=== PATIENT | female | born 1945 | race Caucasian/White ===

== ENCOUNTER 2017-11-13 02:03 | Emergency (ER) | payer MEDICARE, OTHER ==
[~2017-11-13] VITALS: Ht 165.1 cm; Wt 68.0 kg
[~2017-11-13 02:03] MED LIST: ALBU90I INH; ALLO100 PO; AMIO200 PO; AMLO10 PO; ASCO500 PO; ASPI81CH PO; ASPI81EC PO; ATEN100; ATEN50 PO; Aspir 8181 MG PO; BECL80OI INH; CALCAVITD; CALCAVITD PO; CALMAGZIN PO; CEPH500 PO; CHOL10002; CHOL10002 PO; CYAN1000I IM; Calcium 600 +1 EAC1 PO; Cleocin HCl300 MG PO; DIGO.125 PO; ERGO400 PO; FENO160 PO; FLUO20; FURO40 PO; HYDACE10B PO; HYDACE5 PO; HYDCHL25 PO; LEVFLO500 PO; LISI20 PO; LISI5 PO; LOSA25 PO; Lanoxin125 MCG PO; Lanoxin250 MCG PO; Lopressor 25 mg25 MG PO; MECL12.5 PO; MECL25 PO; MELO7.5 PO; META800 PO; METO100 PO; METO25 PO; METO25ER PO; MULVITMIND PO; MULVITMINF; MULVITMINF PO; Multi-Day Vita1 EACH PO; NAPR500 PO; NEBI5 PO; Norco 5-325 Ta1 EACH PO; OLME20 PO; OMEP20ER PO; PANT40 PO; POTCHL10ER PO; POTCHL20ER PO; ROSU10TA PO; SPIR25 PO; TORSE20 PO; Tylenol325 MG PO; Voltaren100 GM TOP; WARF1 PO; WARF3 PO; WARF4 PO; WARF5 PO; WARF6 PO; Zofran Odt8 MG SL
[2017-11-13 02:32] LABS: BASOPHILS ABSOLUTE AUTO 0.02 K/mm3 (0.00-0.23); BASOPHILS PERCENT AUTO 0 % (0-2); EOSINOPHILS ABSOLUTE AUTO 0.08 K/mm3 (0.00-0.68); EOSINOPHILS PERCENT AUTO 1 % (0-6); Hematocrit 41.8 % (33.0-51.0); Hemoglobin 13.6 g/dL (11.5-16.0); IMMATURE GRAN ABSOLUTE AUTO 0.24 K/mm3 (0.00-0.10); IMMATURE GRAN PERCENT AUTO 2 % (0-1); LYMPHOCYTES PERCENT AUTO 7 % (21-46); MONOCYTES ABSOLUTE AUTO 1.75 K/mm3 (0.16-1.47); MONOCYTES PERCENT AUTO 14 % (4-13); Mean Corpuscular HGB 33.9 pg (26.0-34.0); Mean Corpuscular HGB Conc 32.5 g/dL (31.5-36.5); Mean Corpuscular Volume 104 fL (80-100); Mean Platelet Volume 9.7 fL (9.1-12.4); NEUTROPHILS ABSOLUTE AUTO 9.26 K/mm3 (1.96-9.15); NEUTROPHILS PERCENT AUTO 76 % (41-73); Platelet Count 254 K/mm3 (150-400); RDW Coefficient Variation 13.8 % (11.7-14.2); RDW Standard Deviation 52.1 fL (35.1-46.3); Red Blood Cell Count 4.01 M/mm3 (3.80-5.20); White Blood Cell Count 12.15 K/mm3 (4.00-11.30)
[2017-11-13 02:50] LABS: Alanine Aminotransfer (ALT/SGP 37 U/L (12-78); Albumin, Blood 3.3 g/dL (3.4-5.0); Albumin/Globulin Ratio 0.9 (0.8-1.8); Alk Phos 62 U/L (50-136); Anion Gap 10 mmol/L (6-16); Aspartate Aminotrans (AST/SGOT 33 U/L (12-37); Bilirubin, Total 0.8 mg/dL (0.1-1.0); Blood Urea Nitrogen 19 mg/dL (8-24); CO2, Blood 23 mmol/L (21-32); Calcium, Blood 7.8 mg/dL (8.5-10.1); Chloride, Blood 108 mmol/L (98-108); Creatinine, Blood 0.71 mg/dL (0.40-1.00); Globulin, Blood 3.5 g/dL (2.2-4.0); Glomerular Filtration Rate >60 (60-); Glucose, Blood 85 mg/dL (70-99); Potassium, Blood 3.5 mmol/L (3.5-5.5); Sodium, Blood 141 mmol/L (136-145); Total Protein, Blood 6.8 g/dL (6.4-8.2)
[2017-11-13 03:08] LABS: Source, Urine Clean Catch
[2017-11-13 03:11] LABS: Bilirubin, Urine Neg (Neg); Blood, Urine 2+ (Neg); Glucose Qualitative, Urine Neg (Neg); Ketones, Urine Neg (Neg); Leukocyte Esterase, Urine Neg (Neg); Nitrite, Urine Neg (Neg); Protein, Urine 2+ (Neg); Urobilinogen, Urine NORM (Normal)
[2017-11-13 03:15] LABS: International Normalized Ratio 1.22; Prothrombin Time Results 12.8 Sec (9.7-11.5)
[2017-11-13 03:17] LABS: Appearance, Urine Clear (Clear); Color, Urine Pale Yellow (P-Yellow)
[2017-11-13 03:19] LABS: Bacteria Rare /hpf; Red Blood Cells, Urine 0-2 /hpf (0-2); Squamous Epithelial Cells Not Seen /hpf (Few); White Blood Cells, Urine 0-2 /hpf (0-5)
[2017-11-13] MEDS ORDERED: DIGOX125 MCG PO (03:46)
[2017-11-13] MEDS ORDERED: CARV6.25 PO (03:47)
[2018-10-06] MEDS ORDERED: COLCRYS0.6 MG (18:31)
[2018-10-06] MEDS ORDERED: DOCU100 (18:31)
[2018-10-06] MEDS ORDERED: NEBI5 (18:32)
[2018-10-06] MEDS ORDERED: ROPI.25 (18:32)
[2018-10-06] MEDS ORDERED: CVS DISPOSABLE399 ML (18:35)
[2018-10-09] MEDS ORDERED: Ceftriaxon1 GM/50 ML IV (18:48)
[2018-10-16] MEDS ORDERED: NEBI5 PO (11:17)
[2018-10-16] MEDS ORDERED: POTA10T PO (11:18)
[2018-10-16] MEDS ORDERED: COLCRYS0.6 MG PO (11:22)
[2018-10-16] MEDS ORDERED: ADULT ASPIRIN R81 MG PO (11:23)
[2018-10-16] MEDS ORDERED: SANTYL30 GM TOP (11:25)
[2018-10-16] MEDS ORDERED: CLOP75 PO (11:27)
== END 2017-11-13 09:08 | disposition home or self-care (01) ==
LOC: ER 02:03
PROVIDERS: Emergency Medicine
DX: R29.898 Other symptoms and signs involving the musculoskeletal system (principal); R20.2 Paresthesia of skin; R79.1 Abnormal coagulation profile; I11.0 Hypertensive heart disease with heart failure; I48.91 Unspecified atrial fibrillation; I50.9 Heart failure, unspecified; Z95.0 Presence of cardiac pacemaker; Z88.8 Allergy status to other drugs, medicaments and biological substances; Z91.040 Latex allergy status; Z79.899 Other long term (current) drug therapy; Z79.01 Long term (current) use of anticoagulants; Z96.643 Presence of artificial hip joint, bilateral
CPT/HCPCS: 51798; 71046; 80053; 81001; 84484; 85025; 85610; 93005; 93010; 96360; 96361; 99285; J7030

== ENCOUNTER 2017-12-06 11:09 | Emergency (ER) | payer MEDICARE, OTHER ==
[~2017-12-06] VITALS: Ht 177.8 cm; Wt 68.0 kg
[~2017-12-06 11:09] MED LIST changes: +CARV6.25 PO; +DIGOX125 MCG PO
[2017-12-06 13:06] LABS: International Normalized Ratio 1.4; Prothrombin Time Results 14.7 Sec (9.7-11.5)
[2018-10-06] MEDS ORDERED: DOCU100 (18:31)
[2018-10-06] MEDS ORDERED: COLCRYS0.6 MG (18:31)
[2018-10-06] MEDS ORDERED: NEBI5 (18:32)
[2018-10-06] MEDS ORDERED: ROPI.25 (18:32)
[2018-10-06] MEDS ORDERED: CVS DISPOSABLE399 ML (18:35)
[2018-10-09] MEDS ORDERED: Ceftriaxon1 GM/50 ML IV (18:48)
[2018-10-16] MEDS ORDERED: NEBI5 PO (11:17)
[2018-10-16] MEDS ORDERED: POTA10T PO (11:18)
[2018-10-16] MEDS ORDERED: COLCRYS0.6 MG PO (11:22)
[2018-10-16] MEDS ORDERED: ADULT ASPIRIN R81 MG PO (11:23)
[2018-10-16] MEDS ORDERED: SANTYL30 GM TOP (11:25)
[2018-10-16] MEDS ORDERED: CLOP75 PO (11:27)
== END 2017-12-06 13:46 | disposition home or self-care (01) ==
LOC: ER 11:09
PROVIDERS: Emergency Medicine
DX: S01.01XA Laceration without foreign body of scalp, initial encounter (principal); F10.129 Alcohol abuse with intoxication, unspecified; I11.0 Hypertensive heart disease with heart failure; I50.9 Heart failure, unspecified; I48.91 Unspecified atrial fibrillation; Z88.8 Allergy status to other drugs, medicaments and biological substances; Z91.040 Latex allergy status; Z79.899 Other long term (current) drug therapy; Z79.01 Long term (current) use of anticoagulants; Z96.643 Presence of artificial hip joint, bilateral; Z95.0 Presence of cardiac pacemaker; Y90.7 Blood alcohol level of 200-239 mg/100 ml; W18.30XA Fall on same level, unspecified, initial encounter
CPT/HCPCS: 36415; 70450; 85610; 93005; 93010; 99284; G0480

== ENCOUNTER 2018-02-28 10:29 | Observation (INO) | payer MEDICARE, OTHER ==
[~2018-02-28] VITALS: Ht 177.8 cm; Wt 71.2 kg
[2018-02-28] MEDS ORDERED: LOSARTAN POTAS100 MG PO (10:42)
[2018-02-28 11:01] LABS: BASOPHILS ABSOLUTE AUTO 0.01 K/mm3 (0.00-0.23); BASOPHILS PERCENT AUTO 0 % (0-2); EOSINOPHILS ABSOLUTE AUTO 0.02 K/mm3 (0.00-0.68); EOSINOPHILS PERCENT AUTO 0 % (0-6); Hematocrit 40.5 % (33.0-51.0); IMMATURE GRAN PERCENT AUTO 2 % (0-1); LYMPHOCYTES ABSOLUTE AUTO 0.68 K/mm3 (0.84-5.20); LYMPHOCYTES PERCENT AUTO 10 % (21-46); MONOCYTES ABSOLUTE AUTO 0.67 K/mm3 (0.16-1.47); MONOCYTES PERCENT AUTO 10 % (4-13); Mean Corpuscular HGB 32.7 pg (26.0-34.0); Mean Corpuscular HGB Conc 32.1 g/dL (31.5-36.5); Mean Corpuscular Volume 102 fL (80-100); Mean Platelet Volume 9.9 fL (9.1-12.4); NEUTROPHILS ABSOLUTE AUTO 5.38 K/mm3 (1.96-9.15); NEUTROPHILS PERCENT AUTO 78 % (41-73); Platelet Count 206 K/mm3 (150-400); RDW Coefficient Variation 13.1 % (11.7-14.2); RDW Standard Deviation 48.8 fL (35.1-46.3); Red Blood Cell Count 3.97 M/mm3 (3.80-5.20); White Blood Cell Count 6.86 K/mm3 (4.00-11.30)
[2018-02-28 11:17] LABS: International Normalized Ratio 1.26; Prothrombin Time Results 13.2 Sec (9.7-11.5)
[2018-02-28 11:20] LABS: Alanine Aminotransfer (ALT/SGP 64 U/L (12-78); Albumin, Blood 3.4 g/dL (3.4-5.0); Alk Phos 72 U/L (50-136); Anion Gap 9 mmol/L (6-16); Aspartate Aminotrans (AST/SGOT 38 U/L (12-37); Bilirubin, Total 0.4 mg/dL (0.1-1.0); Blood Urea Nitrogen 45 mg/dL (8-24); Bun/Creatinine Ratio 47.1 (12.0-20.0); CO2, Blood 24 mmol/L (21-32); Calcium, Blood 8.5 mg/dL (8.5-10.1); Chloride, Blood 108 mmol/L (98-108); Creatinine, Blood 0.96 mg/dL (0.40-1.00); Globulin, Blood 3.4 g/dL (2.2-4.0); Glomerular Filtration Rate >60 (60-); Glucose, Blood 148 mg/dL (70-99); Potassium, Blood 3.9 mmol/L (3.5-5.5); Sodium, Blood 141 mmol/L (136-145); Total Protein, Blood 6.8 g/dL (6.4-8.2)
[2018-03-01 05:59] LABS: International Normalized Ratio 1.41; Prothrombin Time Results 14.8 Sec (9.7-11.5)
[2018-03-02 06:29] LABS: International Normalized Ratio 1.47; Prothrombin Time Results 15.5 Sec (9.7-11.5)
[2018-03-03 05:01] LABS: Hematocrit 40.9 % (33.0-51.0); Mean Corpuscular HGB 32.8 pg (26.0-34.0); Mean Corpuscular HGB Conc 31.8 g/dL (31.5-36.5); Mean Corpuscular Volume 103 fL (80-100); Mean Platelet Volume 9.7 fL (9.1-12.4); Platelet Count 217 K/mm3 (150-400); RDW Coefficient Variation 13.2 % (11.7-14.2); RDW Standard Deviation 49.7 fL (35.1-46.3); Red Blood Cell Count 3.96 M/mm3 (3.80-5.20); White Blood Cell Count 6.95 K/mm3 (4.00-11.30)
[2018-03-03 05:13] LABS: International Normalized Ratio 1.64; Prothrombin Time Results 17.3 Sec (9.7-11.5)
[2018-03-03 05:39] LABS: Anion Gap 7 mmol/L (6-16); Blood Urea Nitrogen 33 mg/dL (8-24); Bun/Creatinine Ratio 39.8 (12.0-20.0); CO2, Blood 25 mmol/L (21-32); Calcium, Blood 8.6 mg/dL (8.5-10.1); Chloride, Blood 105 mmol/L (98-108); Creatinine, Blood 0.83 mg/dL (0.40-1.00); Glomerular Filtration Rate >60 (60-); Glucose, Blood 86 mg/dL (70-99); Potassium, Blood 4.4 mmol/L (3.5-5.5); Sodium, Blood 137 mmol/L (136-145)
[2018-03-03] MEDS ORDERED: CHLO25B PO (16:58)
[2018-03-03] MEDS ORDERED: NEBI5 PO (16:59)
[2018-03-03] MEDS ORDERED: CLOP75 PO (16:59)
== END 2018-03-03 17:47 | disposition home or self-care (01) ==
LOC: ER 10:29 → MEDS 10:30 → ENPENDDIS 03-03 17:10 → MEDS 03-03 17:47
PROVIDERS: Emergency Medicine; Internal Medicine
DX: G45.9 Transient cerebral ischemic attack, unspecified (principal); I48.91 Unspecified atrial fibrillation; I67.9 Cerebrovascular disease, unspecified; I13.0 Hypertensive heart and chronic kidney disease with heart failure and stage 1 through stage 4 chronic kidney disease, or unspecified chronic kidney disease; I50.40 Unspecified combined systolic (congestive) and diastolic (congestive) heart failure; N18.3 Chronic kidney disease, stage 3 (moderate); I49.9 Cardiac arrhythmia, unspecified; H54.7 Unspecified visual loss; Z79.01 Long term (current) use of anticoagulants; Z95.810 Presence of automatic (implantable) cardiac defibrillator; Z79.02 Long term (current) use of antithrombotics/antiplatelets; Z79.899 Other long term (current) drug therapy; Z88.8 Allergy status to other drugs, medicaments and biological substances; Z91.040 Latex allergy status
CPT/HCPCS: 36415; 70450; 80048; 80053; 82947; 85025; 85027; 85610; 93005; 93010; 93308; 93321; 93880; 94762; 96372; 96374; 96375; 96376; 97110; 97116; 97162; 99285; G0378; G8978; G8979; J0360; J1650; J2405

== ENCOUNTER 2018-03-08 12:07 | Emergency (ER) | payer MEDICARE, OTHER ==
[~2018-03-08] VITALS: Ht 162.6 cm; Wt 63.5 kg
[~2018-03-08 12:07] MED LIST changes: +CHLO25B PO; +CLOP75 PO; +LOSARTAN POTAS100 MG PO
[2018-03-08] MEDS ORDERED: WARF5 PO (12:39)
[2018-03-08 12:47] LABS: BASOPHILS ABSOLUTE AUTO 0.03 K/mm3 (0.00-0.23); BASOPHILS PERCENT AUTO 0 % (0-2); EOSINOPHILS ABSOLUTE AUTO 0.14 K/mm3 (0.00-0.68); EOSINOPHILS PERCENT AUTO 2 % (0-6); Hematocrit 35.4 % (33.0-51.0); Hemoglobin 11.8 g/dL (11.5-16.0); IMMATURE GRAN ABSOLUTE AUTO 0.15 K/mm3 (0.00-0.10); IMMATURE GRAN PERCENT AUTO 2 % (0-1); LYMPHOCYTES ABSOLUTE AUTO 1.11 K/mm3 (0.84-5.20); LYMPHOCYTES PERCENT AUTO 13 % (21-46); MONOCYTES ABSOLUTE AUTO 1.22 K/mm3 (0.16-1.47); MONOCYTES PERCENT AUTO 14 % (4-13); Mean Corpuscular HGB 33.6 pg (26.0-34.0); Mean Corpuscular HGB Conc 33.3 g/dL (31.5-36.5); Mean Corpuscular Volume 101 fL (80-100); Mean Platelet Volume 9.4 fL (9.1-12.4); NEUTROPHILS ABSOLUTE AUTO 6.15 K/mm3 (1.96-9.15); NEUTROPHILS PERCENT AUTO 70 % (41-73); Platelet Count 251 K/mm3 (150-400); RDW Coefficient Variation 13.6 % (11.7-14.2); RDW Standard Deviation 49.6 fL (35.1-46.3); Red Blood Cell Count 3.51 M/mm3 (3.80-5.20)
[2018-03-08 13:02] LABS: Alanine Aminotransfer (ALT/SGP 44 U/L (12-78); Albumin, Blood 3.4 g/dL (3.4-5.0); Alk Phos 49 U/L (50-136); Anion Gap 7 mmol/L (6-16); Aspartate Aminotrans (AST/SGOT 34 U/L (12-37); Bilirubin, Total 1.1 mg/dL (0.1-1.0); Blood Urea Nitrogen 29 mg/dL (8-24); Bun/Creatinine Ratio 34.6 (12.0-20.0); CO2, Blood 25 mmol/L (21-32); Calcium, Blood 8.6 mg/dL (8.5-10.1); Chloride, Blood 106 mmol/L (98-108); Creatinine, Blood 0.84 mg/dL (0.40-1.00); Globulin, Blood 3.3 g/dL (2.2-4.0); Glomerular Filtration Rate >60 (60-); Glucose, Blood 98 mg/dL (70-99); International Normalized Ratio 1.44; Potassium, Blood 3.6 mmol/L (3.5-5.5); Prothrombin Time Results 15.2 Sec (9.7-11.5); Sodium, Blood 138 mmol/L (136-145); Total Protein, Blood 6.7 g/dL (6.4-8.2); Troponin I <0.015 ng/mL (0.000-0.040)
[2018-03-08] MEDS ORDERED: ROPI.25 PO (16:15)
== END 2018-03-08 17:28 | disposition home or self-care (01) ==
LOC: ER 12:07
PROVIDERS: Emergency Medicine
DX: S80.11XA Contusion of right lower leg, initial encounter (principal); S70.11XA Contusion of right thigh, initial encounter; M71.21 Synovial cyst of popliteal space [Baker], right knee; G25.81 Restless legs syndrome; R79.1 Abnormal coagulation profile; I11.0 Hypertensive heart disease with heart failure; I50.9 Heart failure, unspecified; I48.91 Unspecified atrial fibrillation; Z79.01 Long term (current) use of anticoagulants; Z91.040 Latex allergy status; Z88.8 Allergy status to other drugs, medicaments and biological substances; Z79.899 Other long term (current) drug therapy; X58.XXXA Exposure to other specified factors, initial encounter
CPT/HCPCS: 71046; 80053; 84484; 85025; 85610; 93005; 93010; 93922; 93971; 99284

== ENCOUNTER → 2018-03-20 | Outpatient (CLI) | payer MEDICARE, OTHER ==
[~2018-03-20] MED LIST changes: +ROPI.25 PO
[2018-03-20 10:43] LABS: International Normalized Ratio 1.4; Prothrombin Time Results 14.7 Sec (9.7-11.5)
== END | disposition home or self-care (01) ==
LOC: LAB HH 10:22
PROVIDERS: Registered Nurse
DX: I48.91 Unspecified atrial fibrillation (principal)
CPT/HCPCS: 85610

== ENCOUNTER → 2018-03-30 | Outpatient (CLI) | payer MEDICARE, OTHER ==
[2018-03-30 16:33] LABS: International Normalized Ratio 2.26; Prothrombin Time Results 24.1 Sec (9.7-11.5)
== END ==
LOC: LAB SHORT 14:23
PROVIDERS: Internal Medicine Cardiovascular Disease
DX: Z79.01 Long term (current) use of anticoagulants (principal); Z51.81 Encounter for therapeutic drug level monitoring
CPT/HCPCS: 85610

== ENCOUNTER 2018-07-18 00:08 | Day surgery (SDC) | payer MEDICARE, OTHER ==
[2018-07-18] MEDS ORDERED: WARF3 PO (11:18)
== END 2018-07-18 22:37 | disposition home or self-care (01) ==
LOC: RAD 00:08
DX: M54.16 Radiculopathy, lumbar region (principal); M51.36 Other intervertebral disc degeneration, lumbar region; M47.812 Spondylosis without myelopathy or radiculopathy, cervical region; M41.9 Scoliosis, unspecified; M48.061 Spinal stenosis, lumbar region without neurogenic claudication; M43.17 Spondylolisthesis, lumbosacral region
CPT/HCPCS: 62305; 72126; 72132; Q9967

== ENCOUNTER → 2018-07-18 14:27 | Emergency (ER) | payer MEDICARE, OTHER ==
[~2018-07-18] VITALS: Ht 172.7 cm; Wt 65.3 kg
== END | disposition home or self-care (01) ==
LOC: ER 10:59
DX: S09.90XA Unspecified injury of head, initial encounter (principal); W01.198A Fall on same level from slipping, tripping and stumbling with subsequent striking against other object, initial encounter; Z91.040 Latex allergy status; Z79.899 Other long term (current) drug therapy; I11.0 Hypertensive heart disease with heart failure; I50.9 Heart failure, unspecified; I48.91 Unspecified atrial fibrillation
CPT/HCPCS: 70450; 99284-25

== ENCOUNTER 2018-07-18 18:21 | Inpatient (IN) | payer MEDICARE, OTHER ==
[~2018-07-18] VITALS: Ht 177.8 cm; Wt 75.5 kg
[2018-07-18 19:47] LABS: BASOPHILS ABSOLUTE AUTO 0.02 K/mm3 (0.00-0.23); BASOPHILS PERCENT AUTO 0 % (0-2); EOSINOPHILS ABSOLUTE AUTO 0.01 K/mm3 (0.00-0.68); EOSINOPHILS PERCENT AUTO 0 % (0-6); Hematocrit 37.1 % (33.0-51.0); Hemoglobin 12.7 g/dL (11.5-16.0); IMMATURE GRAN ABSOLUTE AUTO 0.08 K/mm3 (0.00-0.10); IMMATURE GRAN PERCENT AUTO 1 % (0-1); LYMPHOCYTES ABSOLUTE AUTO 0.95 K/mm3 (0.84-5.20); LYMPHOCYTES PERCENT AUTO 9 % (21-46); MONOCYTES ABSOLUTE AUTO 1.87 K/mm3 (0.16-1.47); MONOCYTES PERCENT AUTO 17 % (4-13); Mean Corpuscular HGB 33.6 pg (26.0-34.0); Mean Corpuscular HGB Conc 34.2 g/dL (31.5-36.5); Mean Corpuscular Volume 98 fL (80-100); NEUTROPHILS PERCENT AUTO 73 % (41-73); Platelet Count 269 K/mm3 (150-400); RDW Coefficient Variation 13.3 % (11.7-14.2); RDW Standard Deviation 48.4 fL (35.1-46.3); Red Blood Cell Count 3.78 M/mm3 (3.80-5.20); White Blood Cell Count 10.83 K/mm3 (4.00-11.30)
[2018-07-18 20:05] LABS: Albumin, Blood 2.6 g/dL (3.4-5.0); Albumin/Globulin Ratio 0.6 (0.8-1.8); Bilirubin, Total 0.7 mg/dL (0.1-1.0); Bun/Creatinine Ratio 29.4 (12.0-20.0); Calcium, Blood 8.5 mg/dL (8.5-10.1); Creatinine, Blood 1.02 mg/dL (0.40-1.00); Globulin, Blood 4.3 g/dL (2.2-4.0); Potassium, Blood 2.7 mmol/L (3.5-5.5); Total Protein, Blood 6.9 g/dL (6.4-8.2)
[2018-07-19 05:49] LABS: Calcium, Blood 7.9 mg/dL (8.5-10.1); Potassium, Blood 3.2 mmol/L (3.5-5.5)
[2018-07-20 21:10] LABS: International Normalized Ratio 0.99; Prothrombin Time Results 10.2 Sec (9.7-11.5)
[2018-07-21 05:17] LABS: Anion Gap 10 mmol/L (6-16); Blood Urea Nitrogen 28 mg/dL (8-24); Bun/Creatinine Ratio 31.2 (12.0-20.0); CO2, Blood 28 mmol/L (21-32); Chloride, Blood 91 mmol/L (98-108); Glomerular Filtration Rate >60 (60-); Glucose, Blood 94 mg/dL (70-99); International Normalized Ratio 1.02; Potassium, Blood 3.4 mmol/L (3.5-5.5); Prothrombin Time Results 10.5 Sec (9.7-11.5); Sodium, Blood 129 mmol/L (136-145)
[2018-07-22 05:14] LABS: BASOPHILS ABSOLUTE AUTO 0.03 K/mm3 (0.00-0.23); BASOPHILS PERCENT AUTO 0 % (0-2); EOSINOPHILS ABSOLUTE AUTO 0.06 K/mm3 (0.00-0.68); EOSINOPHILS PERCENT AUTO 1 % (0-6); Hematocrit 32.1 % (33.0-51.0); Hemoglobin 11.2 g/dL (11.5-16.0); IMMATURE GRAN ABSOLUTE AUTO 0.13 K/mm3 (0.00-0.10); IMMATURE GRAN PERCENT AUTO 2 % (0-1); LYMPHOCYTES ABSOLUTE AUTO 0.83 K/mm3 (0.84-5.20); LYMPHOCYTES PERCENT AUTO 10 % (21-46); MONOCYTES ABSOLUTE AUTO 1.32 K/mm3 (0.16-1.47); MONOCYTES PERCENT AUTO 17 % (4-13); Mean Corpuscular HGB 33.2 pg (26.0-34.0); Mean Corpuscular HGB Conc 34.9 g/dL (31.5-36.5); Mean Platelet Volume 10.1 fL (9.1-12.4); NEUTROPHILS ABSOLUTE AUTO 5.64 K/mm3 (1.96-9.15); NEUTROPHILS PERCENT AUTO 70 % (41-73); Platelet Count 292 K/mm3 (150-400); RDW Standard Deviation 45.9 fL (35.1-46.3); Red Blood Cell Count 3.37 M/mm3 (3.80-5.20); White Blood Cell Count 8.01 K/mm3 (4.00-11.30)
[2018-07-22 05:18] LABS: Mean Corpuscular Volume 95 fL (80-100)
[2018-07-22 05:28] LABS: International Normalized Ratio 1.05; Prothrombin Time Results 10.8 Sec (9.7-11.5)
[2018-07-22 05:33] LABS: Anion Gap 10 mmol/L (6-16); Blood Urea Nitrogen 16 mg/dL (8-24); Bun/Creatinine Ratio 22.6 (12.0-20.0); CO2, Blood 28 mmol/L (21-32); Chloride, Blood 90 mmol/L (98-108); Creatinine, Blood 0.71 mg/dL (0.40-1.00); Glomerular Filtration Rate >60 (60-); Glucose, Blood 90 mg/dL (70-99); Potassium, Blood 3.4 mmol/L (3.5-5.5); Sodium, Blood 128 mmol/L (136-145)
[2018-07-22 10:48] LABS: Anion Gap 9 mmol/L (6-16); Blood Urea Nitrogen 16 mg/dL (8-24); Bun/Creatinine Ratio 21.4 (12.0-20.0); CO2, Blood 27 mmol/L (21-32); Calcium, Blood 8.5 mg/dL (8.5-10.1); Chloride, Blood 88 mmol/L (98-108); Creatinine, Blood 0.75 mg/dL (0.40-1.00); Glomerular Filtration Rate >60 (60-); Glucose, Blood 121 mg/dL (70-99); Potassium, Blood 3.7 mmol/L (3.5-5.5); Sodium, Blood 124 mmol/L (136-145)
[2018-07-22 17:29] LABS: Anion Gap 12 mmol/L (6-16); Blood Urea Nitrogen 15 mg/dL (8-24); Bun/Creatinine Ratio 21.5 (12.0-20.0); CO2, Blood 24 mmol/L (21-32); Chloride, Blood 90 mmol/L (98-108); Glomerular Filtration Rate >60 (60-); Glucose, Blood 153 mg/dL (70-99); Potassium, Blood 3.9 mmol/L (3.5-5.5); Sodium, Blood 126 mmol/L (136-145)
[2018-07-23 06:01] LABS: International Normalized Ratio 1.49
[2018-07-23 06:40] LABS: Anion Gap 12 mmol/L (6-16); Blood Urea Nitrogen 19 mg/dL (8-24); Bun/Creatinine Ratio 23.6 (12.0-20.0); CO2, Blood 23 mmol/L (21-32); Calcium, Blood 7.4 mg/dL (8.5-10.1); Chloride, Blood 93 mmol/L (98-108); Creatinine, Blood 0.81 mg/dL (0.40-1.00); Glomerular Filtration Rate >60 (60-); Glucose, Blood 127 mg/dL (70-99); Potassium, Blood 3.8 mmol/L (3.5-5.5); Sodium, Blood 128 mmol/L (136-145)
[2018-07-24 04:44] LABS: Mean Corpuscular HGB 33.6 pg (26.0-34.0); Mean Corpuscular HGB Conc 34.3 g/dL (31.5-36.5); Mean Platelet Volume 10.3 fL (9.1-12.4); Platelet Count 222 K/mm3 (150-400); RDW Coefficient Variation 13.7 % (11.7-14.2); RDW Standard Deviation 49.1 fL (35.1-46.3); White Blood Cell Count 14.65 K/mm3 (4.00-11.30)
[2018-07-24 04:45] LABS: Mean Corpuscular Volume 98 fL (80-100)
[2018-07-24 04:46] LABS: Hemoglobin 4.7 g/dL (11.5-16.0)
[2018-07-24 04:47] LABS: Hematocrit 13.7 % (33.0-51.0)
[2018-07-24 04:57] LABS: International Normalized Ratio 2.3; Prothrombin Time Results 22.6 Sec (9.7-11.5)
[2018-07-24 05:04] LABS: Anion Gap 9 mmol/L (6-16); Blood Urea Nitrogen 28 mg/dL (8-24); Bun/Creatinine Ratio 29.9 (12.0-20.0); CO2, Blood 23 mmol/L (21-32); Calcium, Blood 6.9 mg/dL (8.5-10.1); Chloride, Blood 99 mmol/L (98-108); Creatinine, Blood 0.94 mg/dL (0.40-1.00); Glomerular Filtration Rate >60 (60-); Glucose, Blood 90 mg/dL (70-99); Potassium, Blood 4.2 mmol/L (3.5-5.5); Sodium, Blood 131 mmol/L (136-145)
[2018-07-24 05:15] LABS: BAND PERCENT MAN 1 % (0-8); BASOPHILS PERCENT MAN 0 % (0-2); EOSINOPHILS PERCENT MAN 0 % (0-6); LYMPHOCYTES ABSOLUTE MAN 1.61 K/mm3 (0.84-5.20); LYMPHOCYTES PERCENT MAN 11 % (21-46); METAMYELOCYTE ABSOLUTE MAN 0.14 K/mm3 (0.00-0.00); METAMYELOCYTE PERCENT MAN 1 % (0-0); MONOCYTES ABSOLUTE MAN 0.87 K/mm3 (0.16-1.47); MONOCYTES PERCENT MAN 6 % (4-13); NEUTROPHILS ABSOLUTE MAN 12.01 K/mm3 (1.96-9.15); SEG NEUTROPHILS PERCENT MAN 81 % (41-73); TOTAL CELLS COUNTED 100
[2018-07-24 05:41] LABS: Percent Saturation 23.7 % (15.0-50.0)
[2018-07-24 08:10] LABS: Albumin/Globulin Ratio 0.8 (0.8-1.8); Bilirubin, Total 0.3 mg/dL (0.1-1.0); Bun/Creatinine Ratio 27.2 (12.0-20.0); Calcium, Blood 6.9 mg/dL (8.5-10.1); Creatinine, Blood 0.99 mg/dL (0.40-1.00); Globulin, Blood 2.6 g/dL (2.2-4.0); Potassium, Blood 4.3 mmol/L (3.5-5.5); Total Protein, Blood 4.6 g/dL (6.4-8.2)
[2018-07-24 11:07] LABS: Source, Urine Catheter
[2018-07-24 11:10] LABS: Bilirubin, Urine Neg (Neg); Blood, Urine Neg (Neg); Glucose Qualitative, Urine Neg (Neg); Ketones, Urine 1+ (Neg); Leukocyte Esterase, Urine Neg (Neg); Nitrite, Urine Neg (Neg); Protein, Urine Neg (Neg); Urobilinogen, Urine NORM (Normal)
[2018-07-24 11:53] LABS: Color, Urine Yellow (P-Yellow)
[2018-07-24 11:54] LABS: Appearance, Urine Clear (Clear)
[2018-07-24 19:02] LABS: Hematocrit 27.7 % (33.0-51.0); Hemoglobin 9.3 g/dL (11.5-16.0)
[2018-07-25 05:47] LABS: Hematocrit 26.4 % (33.0-51.0); Hemoglobin 8.7 g/dL (11.5-16.0); Mean Corpuscular HGB 30.6 pg (26.0-34.0); Mean Platelet Volume 10.5 fL (9.1-12.4); NRBC Auto 0.6 /100 WBC (0.0-0.2); Platelet Count 184 K/mm3 (150-400); RDW Coefficient Variation 17.3 % (11.7-14.2); RDW Standard Deviation 58.6 fL (35.1-46.3); Red Blood Cell Count 2.84 M/mm3 (3.80-5.20); White Blood Cell Count 18.14 K/mm3 (4.00-11.30)
[2018-07-25 05:49] LABS: Mean Corpuscular Volume 93 fL (80-100)
[2018-07-25 06:09] LABS: Alanine Aminotransfer (ALT/SGP 21 U/L (12-78); Albumin, Blood 2.1 g/dL (3.4-5.0); Albumin/Globulin Ratio 0.7 (0.8-1.8); Alk Phos 36 U/L (50-136); Anion Gap 12 mmol/L (6-16); Aspartate Aminotrans (AST/SGOT 53 U/L (12-37); Bilirubin, Total 1.1 mg/dL (0.1-1.0); Blood Urea Nitrogen 27 mg/dL (8-24); CO2, Blood 20 mmol/L (21-32); Calcium, Blood 7.3 mg/dL (8.5-10.1); Chloride, Blood 101 mmol/L (98-108); Creatinine, Blood 0.82 mg/dL (0.40-1.00); Globulin, Blood 2.9 g/dL (2.2-4.0); Glomerular Filtration Rate >60 (60-); Glucose, Blood 64 mg/dL (70-99); Potassium, Blood 4.3 mmol/L (3.5-5.5); Sodium, Blood 133 mmol/L (136-145)
[2018-07-25 06:11] LABS: BAND PERCENT MAN 1 % (0-8); BASOPHILS PERCENT MAN 0 % (0-2); EOSINOPHILS PERCENT MAN 0 % (0-6); LYMPHOCYTES ABSOLUTE MAN 1.08 K/mm3 (0.84-5.20); LYMPHOCYTES PERCENT MAN 6 % (21-46); METAMYELOCYTE ABSOLUTE MAN 0.72 K/mm3 (0.00-0.00); METAMYELOCYTE PERCENT MAN 4 % (0-0); MONOCYTES ABSOLUTE MAN 1.08 K/mm3 (0.16-1.47); MONOCYTES PERCENT MAN 6 % (4-13); NEUTROPHILS ABSOLUTE MAN 15.23 K/mm3 (1.96-9.15); SEG NEUTROPHILS PERCENT MAN 83 % (41-73); TOTAL CELLS COUNTED 100
[2018-07-25 06:33] LABS: International Normalized Ratio 0.97
[2018-07-26 05:33] LABS: Hematocrit 20.4 % (33.0-51.0); Hemoglobin 6.8 g/dL (11.5-16.0)
[2018-07-26 21:14] LABS: Hematocrit 31.2 % (33.0-51.0); Hemoglobin 10.4 g/dL (11.5-16.0)
[2018-07-27 04:50] LABS: Hematocrit 29.6 % (33.0-51.0); Hemoglobin 9.9 g/dL (11.5-16.0); Mean Corpuscular HGB 31.5 pg (26.0-34.0); Mean Corpuscular HGB Conc 33.4 g/dL (31.5-36.5); Mean Corpuscular Volume 94 fL (80-100); NRBC ABSOLUTE 0.09 K/mm3 (0.00-0.02); NRBC Auto 0.7 /100 WBC (0.0-0.2); RDW Coefficient Variation 16.3 % (11.7-14.2); RDW Standard Deviation 54.1 fL (35.1-46.3); Red Blood Cell Count 3.14 M/mm3 (3.80-5.20); White Blood Cell Count 13.22 K/mm3 (4.00-11.30)
[2018-07-27 05:09] LABS: Mean Platelet Volume 10.5 fL (9.1-12.4); Platelet Count 158 K/mm3 (150-400)
[2018-07-27 05:11] LABS: Alanine Aminotransfer (ALT/SGP 16 U/L (12-78); Albumin/Globulin Ratio 0.6 (0.8-1.8); Alk Phos 43 U/L (50-136); Anion Gap 8 mmol/L (6-16); Aspartate Aminotrans (AST/SGOT 29 U/L (12-37); Bilirubin, Total 1.2 mg/dL (0.1-1.0); Blood Urea Nitrogen 20 mg/dL (8-24); Bun/Creatinine Ratio 27.3 (12.0-20.0); CO2, Blood 24 mmol/L (21-32); Calcium, Blood 7.3 mg/dL (8.5-10.1); Chloride, Blood 101 mmol/L (98-108); Creatinine, Blood 0.73 mg/dL (0.40-1.00); Globulin, Blood 3.5 g/dL (2.2-4.0); Glomerular Filtration Rate >60 (60-); Glucose, Blood 77 mg/dL (70-99); Sodium, Blood 133 mmol/L (136-145); Total Protein, Blood 5.5 g/dL (6.4-8.2)
[2018-07-27 05:23] LABS: BAND PERCENT MAN 1 % (0-8); BASOPHILS PERCENT MAN 0 % (0-2); EOSINOPHILS ABSOLUTE MAN 0.13 K/mm3 (0.00-0.68); EOSINOPHILS PERCENT MAN 1 % (0-6); LYMPHOCYTES ABSOLUTE MAN 0.79 K/mm3 (0.84-5.20); LYMPHOCYTES PERCENT MAN 6 % (21-46); METAMYELOCYTE ABSOLUTE MAN 0.13 K/mm3 (0.00-0.00); METAMYELOCYTE PERCENT MAN 1 % (0-0); MONOCYTES ABSOLUTE MAN 0.92 K/mm3 (0.16-1.47); MONOCYTES PERCENT MAN 7 % (4-13); MYELOCYTE ABSOLUTE MAN 0.39 K/mm3 (0.00-0.00); MYELOCYTE PERCENT MAN 3 % (0-0); NEUTROPHILS ABSOLUTE MAN 10.84 K/mm3 (1.96-9.15); SEG NEUTROPHILS PERCENT MAN 81 % (41-73); TOTAL CELLS COUNTED 100
[2018-07-28 10:51] LABS: BASOPHILS ABSOLUTE AUTO 0.06 K/mm3 (0.00-0.23); BASOPHILS PERCENT AUTO 0 % (0-2); EOSINOPHILS ABSOLUTE AUTO 0.08 K/mm3 (0.00-0.68); EOSINOPHILS PERCENT AUTO 1 % (0-6); Hematocrit 30.4 % (33.0-51.0); Hemoglobin 9.9 g/dL (11.5-16.0); IMMATURE GRAN ABSOLUTE AUTO 1.42 K/mm3 (0.00-0.10); IMMATURE GRAN PERCENT AUTO 8 % (0-1); LYMPHOCYTES ABSOLUTE AUTO 0.77 K/mm3 (0.84-5.20); LYMPHOCYTES PERCENT AUTO 4 % (21-46); MONOCYTES ABSOLUTE AUTO 2.39 K/mm3 (0.16-1.47); MONOCYTES PERCENT AUTO 14 % (4-13); Mean Corpuscular HGB 31.5 pg (26.0-34.0); Mean Corpuscular HGB Conc 32.6 g/dL (31.5-36.5); Mean Platelet Volume 9.8 fL (9.1-12.4); NEUTROPHILS ABSOLUTE AUTO 12.65 K/mm3 (1.96-9.15); NEUTROPHILS PERCENT AUTO 73 % (41-73); NRBC ABSOLUTE 0.02 K/mm3 (0.00-0.02); NRBC Auto 0.1 /100 WBC (0.0-0.2); Platelet Count 244 K/mm3 (150-400); RDW Coefficient Variation 16.8 % (11.7-14.2); RDW Standard Deviation 56.5 fL (35.1-46.3); Red Blood Cell Count 3.14 M/mm3 (3.80-5.20); White Blood Cell Count 17.37 K/mm3 (4.00-11.30)
[2018-07-28 10:53] LABS: Mean Corpuscular Volume 97 fL (80-100)
[2018-07-28 11:16] LABS: Alanine Aminotransfer (ALT/SGP 20 U/L (12-78); Albumin, Blood 1.9 g/dL (3.4-5.0); Albumin/Globulin Ratio 0.5 (0.8-1.8); Alk Phos 64 U/L (50-136); Anion Gap 7 mmol/L (6-16); Aspartate Aminotrans (AST/SGOT 40 U/L (12-37); Blood Urea Nitrogen 17 mg/dL (8-24); CO2, Blood 27 mmol/L (21-32); Calcium, Blood 7.8 mg/dL (8.5-10.1); Chloride, Blood 97 mmol/L (98-108); Creatinine, Blood 0.68 mg/dL (0.40-1.00); Globulin, Blood 3.7 g/dL (2.2-4.0); Glomerular Filtration Rate >60 (60-); Glucose, Blood 153 mg/dL (70-99); Potassium, Blood 3.8 mmol/L (3.5-5.5); Sodium, Blood 131 mmol/L (136-145); Total Protein, Blood 5.6 g/dL (6.4-8.2)
[2018-07-28 11:19] LABS: BASOPHILS PERCENT MAN 0 % (0-2); EOSINOPHILS PERCENT MAN 0 % (0-6); LYMPHOCYTES ABSOLUTE MAN 2.08 K/mm3 (0.84-5.20); LYMPHOCYTES PERCENT MAN 12 % (21-46); METAMYELOCYTE ABSOLUTE MAN 0.17 K/mm3 (0.00-0.00); METAMYELOCYTE PERCENT MAN 1 % (0-0); MONOCYTES ABSOLUTE MAN 1.38 K/mm3 (0.16-1.47); MONOCYTES PERCENT MAN 8 % (4-13); MYELOCYTE ABSOLUTE MAN 0.17 K/mm3 (0.00-0.00); MYELOCYTE PERCENT MAN 1 % (0-0); NEUTROPHILS ABSOLUTE MAN 13.54 K/mm3 (1.96-9.15); SEG NEUTROPHILS PERCENT MAN 78 % (41-73); TOTAL CELLS COUNTED 100
[2018-07-29 10:50] LABS: Hematocrit 29.4 % (33.0-51.0); Hemoglobin 9.5 g/dL (11.5-16.0); Mean Corpuscular HGB 32.1 pg (26.0-34.0); Mean Corpuscular HGB Conc 32.3 g/dL (31.5-36.5); Mean Corpuscular Volume 99 fL (80-100); Mean Platelet Volume 9.4 fL (9.1-12.4); Platelet Count 238 K/mm3 (150-400); RDW Coefficient Variation 16.3 % (11.7-14.2); RDW Standard Deviation 56.9 fL (35.1-46.3); Red Blood Cell Count 2.96 M/mm3 (3.80-5.20); White Blood Cell Count 19.49 K/mm3 (4.00-11.30)
[2018-07-29 11:03] LABS: Anion Gap 8 mmol/L (6-16); Blood Urea Nitrogen 17 mg/dL (8-24); Bun/Creatinine Ratio 25.6 (12.0-20.0); CO2, Blood 28 mmol/L (21-32); Chloride, Blood 94 mmol/L (98-108); Creatinine, Blood 0.67 mg/dL (0.40-1.00); Glomerular Filtration Rate >60 (60-); Glucose, Blood 131 mg/dL (70-99); Potassium, Blood 4.4 mmol/L (3.5-5.5); Sodium, Blood 130 mmol/L (136-145)
[2018-07-29 11:13] LABS: BASOPHILS PERCENT MAN 0 % (0-2); EOSINOPHILS PERCENT MAN 0 % (0-6); LYMPHOCYTES ABSOLUTE MAN 1.16 K/mm3 (0.84-5.20); LYMPHOCYTES PERCENT MAN 6 % (21-46); METAMYELOCYTE ABSOLUTE MAN 0.19 K/mm3 (0.00-0.00); METAMYELOCYTE PERCENT MAN 1 % (0-0); MONOCYTES ABSOLUTE MAN 2.33 K/mm3 (0.16-1.47); MONOCYTES PERCENT MAN 12 % (4-13); MYELOCYTE ABSOLUTE MAN 0.58 K/mm3 (0.00-0.00); MYELOCYTE PERCENT MAN 3 % (0-0); SEG NEUTROPHILS PERCENT MAN 78 % (41-73); TOTAL CELLS COUNTED 100
[2018-07-30 09:57] LABS: Hematocrit 31.4 % (33.0-51.0); Hemoglobin 10.1 g/dL (11.5-16.0); Mean Corpuscular HGB 32.1 pg (26.0-34.0); Mean Corpuscular HGB Conc 32.2 g/dL (31.5-36.5); Mean Corpuscular Volume 100 fL (80-100); Mean Platelet Volume 9.5 fL (9.1-12.4); Platelet Count 298 K/mm3 (150-400); RDW Coefficient Variation 16.1 % (11.7-14.2); RDW Standard Deviation 58.9 fL (35.1-46.3); Red Blood Cell Count 3.15 M/mm3 (3.80-5.20); White Blood Cell Count 23.39 K/mm3 (4.00-11.30)
[2018-07-30 10:15] LABS: BASOPHILS PERCENT MAN 0 % (0-2); EOSINOPHILS ABSOLUTE MAN 0.23 K/mm3 (0.00-0.68); EOSINOPHILS PERCENT MAN 1 % (0-6); LYMPHOCYTES ABSOLUTE MAN 1.63 K/mm3 (0.84-5.20); LYMPHOCYTES PERCENT MAN 7 % (21-46); METAMYELOCYTE ABSOLUTE MAN 0.23 K/mm3 (0.00-0.00); METAMYELOCYTE PERCENT MAN 1 % (0-0); MONOCYTES PERCENT MAN 9 % (4-13); MYELOCYTE PERCENT MAN 3 % (0-0); NEUTROPHILS ABSOLUTE MAN 18.47 K/mm3 (1.96-9.15); SEG NEUTROPHILS PERCENT MAN 79 % (41-73); TOTAL CELLS COUNTED 100
[2018-07-30 10:21] LABS: Anion Gap 8 mmol/L (6-16); Blood Urea Nitrogen 20 mg/dL (8-24); Bun/Creatinine Ratio 26.4 (12.0-20.0); CO2, Blood 30 mmol/L (21-32); Chloride, Blood 92 mmol/L (98-108); Creatinine, Blood 0.76 mg/dL (0.40-1.00); Glomerular Filtration Rate >60 (60-); Glucose, Blood 150 mg/dL (70-99); Potassium, Blood 4.2 mmol/L (3.5-5.5); Sodium, Blood 130 mmol/L (136-145)
[2018-07-30 12:19] LABS: Bilirubin, Urine Neg (Neg); Blood, Urine 1+ (Neg); Glucose Qualitative, Urine Neg (Neg); Ketones, Urine Neg (Neg); Leukocyte Esterase, Urine Neg (Neg); Nitrite, Urine Neg (Neg); Protein, Urine 2+ (Neg); Urobilinogen, Urine NORM (Normal)
[2018-07-30 12:26] LABS: Appearance, Urine Clear (Clear); Color, Urine Yellow (P-Yellow)
[2018-07-30 12:28] LABS: Bacteria Rare /hpf; Mucus Light (0-Heavy); Red Blood Cells, Urine 0-2 /hpf (0-2); Squamous Epithelial Cells Few /hpf (Few); White Blood Cells, Urine 0-2 /hpf (0-5)
[2018-07-31 05:56] LABS: BASOPHILS ABSOLUTE AUTO 0.03 K/mm3 (0.00-0.23); BASOPHILS PERCENT AUTO 0 % (0-2); EOSINOPHILS ABSOLUTE AUTO 0.11 K/mm3 (0.00-0.68); EOSINOPHILS PERCENT AUTO 1 % (0-6); Hematocrit 26.7 % (33.0-51.0); Hemoglobin 8.7 g/dL (11.5-16.0); IMMATURE GRAN ABSOLUTE AUTO 1.18 K/mm3 (0.00-0.10); IMMATURE GRAN PERCENT AUTO 6 % (0-1); LYMPHOCYTES ABSOLUTE AUTO 0.74 K/mm3 (0.84-5.20); LYMPHOCYTES PERCENT AUTO 4 % (21-46); MONOCYTES ABSOLUTE AUTO 2.66 K/mm3 (0.16-1.47); MONOCYTES PERCENT AUTO 14 % (4-13); Mean Corpuscular HGB 32.2 pg (26.0-34.0); Mean Corpuscular HGB Conc 32.6 g/dL (31.5-36.5); Mean Corpuscular Volume 99 fL (80-100); Mean Platelet Volume 9.5 fL (9.1-12.4); NEUTROPHILS ABSOLUTE AUTO 13.83 K/mm3 (1.96-9.15); NEUTROPHILS PERCENT AUTO 75 % (41-73); Platelet Count 273 K/mm3 (150-400); RDW Coefficient Variation 15.8 % (11.7-14.2); RDW Standard Deviation 56.3 fL (35.1-46.3); White Blood Cell Count 18.55 K/mm3 (4.00-11.30)
[2018-07-31 06:13] LABS: Alanine Aminotransfer (ALT/SGP 41 U/L (12-78); Albumin, Blood 1.5 g/dL (3.4-5.0); Albumin/Globulin Ratio 0.4 (0.8-1.8); Alk Phos 82 U/L (50-136); Anion Gap 7 mmol/L (6-16); Aspartate Aminotrans (AST/SGOT 61 U/L (12-37); Bilirubin, Total 1.4 mg/dL (0.1-1.0); Blood Urea Nitrogen 18 mg/dL (8-24); Bun/Creatinine Ratio 25.2 (12.0-20.0); CO2, Blood 31 mmol/L (21-32); Calcium, Blood 7.9 mg/dL (8.5-10.1); Chloride, Blood 92 mmol/L (98-108); Creatinine, Blood 0.71 mg/dL (0.40-1.00); Glomerular Filtration Rate >60 (60-); Glucose, Blood 88 mg/dL (70-99); Potassium, Blood 4.2 mmol/L (3.5-5.5); Sodium, Blood 130 mmol/L (136-145); Total Protein, Blood 5.5 g/dL (6.4-8.2); Uric Acid, Blood 3.4 mg/dL (2.6-6.0)
[2018-08-01 10:22] LABS: BASOPHILS ABSOLUTE AUTO 0.05 K/mm3 (0.00-0.23); BASOPHILS PERCENT AUTO 0 % (0-2); EOSINOPHILS ABSOLUTE AUTO 0.16 K/mm3 (0.00-0.68); EOSINOPHILS PERCENT AUTO 1 % (0-6); Hematocrit 31.7 % (33.0-51.0); Hemoglobin 9.9 g/dL (11.5-16.0); IMMATURE GRAN ABSOLUTE AUTO 0.74 K/mm3 (0.00-0.10); IMMATURE GRAN PERCENT AUTO 6 % (0-1); LYMPHOCYTES ABSOLUTE AUTO 0.65 K/mm3 (0.84-5.20); LYMPHOCYTES PERCENT AUTO 5 % (21-46); MONOCYTES ABSOLUTE AUTO 1.34 K/mm3 (0.16-1.47); MONOCYTES PERCENT AUTO 10 % (4-13); Mean Corpuscular HGB 31.1 pg (26.0-34.0); Mean Corpuscular HGB Conc 31.2 g/dL (31.5-36.5); Mean Corpuscular Volume 100 fL (80-100); Mean Platelet Volume 9.6 fL (9.1-12.4); NEUTROPHILS ABSOLUTE AUTO 10.16 K/mm3 (1.96-9.15); NEUTROPHILS PERCENT AUTO 78 % (41-73); Platelet Count 375 K/mm3 (150-400); RDW Coefficient Variation 15.7 % (11.7-14.2); Red Blood Cell Count 3.18 M/mm3 (3.80-5.20)
[2018-08-01 10:59] LABS: Anion Gap 8 mmol/L (6-16); Blood Urea Nitrogen 20 mg/dL (8-24); Bun/Creatinine Ratio 26.6 (12.0-20.0); CO2, Blood 30 mmol/L (21-32); Calcium, Blood 7.9 mg/dL (8.5-10.1); Chloride, Blood 95 mmol/L (98-108); Creatinine, Blood 0.75 mg/dL (0.40-1.00); Glomerular Filtration Rate >60 (60-); Glucose, Blood 104 mg/dL (70-99); Potassium, Blood 3.7 mmol/L (3.5-5.5); Sodium, Blood 133 mmol/L (136-145)
[2018-08-02 05:05] LABS: BASOPHILS ABSOLUTE AUTO 0.03 K/mm3 (0.00-0.23); BASOPHILS PERCENT AUTO 0 % (0-2); EOSINOPHILS PERCENT AUTO 1 % (0-6); Hematocrit 28.9 % (33.0-51.0); Hemoglobin 8.9 g/dL (11.5-16.0); IMMATURE GRAN ABSOLUTE AUTO 0.55 K/mm3 (0.00-0.10); IMMATURE GRAN PERCENT AUTO 5 % (0-1); LYMPHOCYTES ABSOLUTE AUTO 0.82 K/mm3 (0.84-5.20); LYMPHOCYTES PERCENT AUTO 8 % (21-46); MONOCYTES PERCENT AUTO 12 % (4-13); Mean Corpuscular HGB 30.5 pg (26.0-34.0); Mean Corpuscular HGB Conc 30.8 g/dL (31.5-36.5); Mean Corpuscular Volume 99 fL (80-100); Mean Platelet Volume 9.2 fL (9.1-12.4); NEUTROPHILS ABSOLUTE AUTO 7.84 K/mm3 (1.96-9.15); NEUTROPHILS PERCENT AUTO 74 % (41-73); Platelet Count 363 K/mm3 (150-400); RDW Coefficient Variation 15.5 % (11.7-14.2); RDW Standard Deviation 55.5 fL (35.1-46.3); Red Blood Cell Count 2.92 M/mm3 (3.80-5.20); White Blood Cell Count 10.64 K/mm3 (4.00-11.30)
[2018-08-02 05:28] LABS: BAND PERCENT MAN 2 % (0-8); BASOPHILS PERCENT MAN 0 % (0-2); EOSINOPHILS ABSOLUTE MAN 0.21 K/mm3 (0.00-0.68); EOSINOPHILS PERCENT MAN 2 % (0-6); LYMPHOCYTES ABSOLUTE MAN 0.63 K/mm3 (0.84-5.20); LYMPHOCYTES PERCENT MAN 6 % (21-46); METAMYELOCYTE ABSOLUTE MAN 0.21 K/mm3 (0.00-0.00); METAMYELOCYTE PERCENT MAN 2 % (0-0); MONOCYTES ABSOLUTE MAN 0.74 K/mm3 (0.16-1.47); MONOCYTES PERCENT MAN 7 % (4-13); NEUTROPHILS ABSOLUTE MAN 8.83 K/mm3 (1.96-9.15); SEG NEUTROPHILS PERCENT MAN 81 % (41-73); TOTAL CELLS COUNTED 100
[2018-08-02 05:34] LABS: Anion Gap 7 mmol/L (6-16); Blood Urea Nitrogen 20 mg/dL (8-24); Bun/Creatinine Ratio 26.9 (12.0-20.0); CO2, Blood 33 mmol/L (21-32); Calcium, Blood 7.8 mg/dL (8.5-10.1); Chloride, Blood 95 mmol/L (98-108); Creatinine, Blood 0.74 mg/dL (0.40-1.00); Glomerular Filtration Rate >60 (60-); Glucose, Blood 86 mg/dL (70-99); Potassium, Blood 3.3 mmol/L (3.5-5.5); Sodium, Blood 135 mmol/L (136-145)
[2018-08-03 04:56] LABS: Anion Gap 7 mmol/L (6-16); Blood Urea Nitrogen 20 mg/dL (8-24); Bun/Creatinine Ratio 28.1 (12.0-20.0); CO2, Blood 34 mmol/L (21-32); Calcium, Blood 7.7 mg/dL (8.5-10.1); Chloride, Blood 97 mmol/L (98-108); Creatinine, Blood 0.71 mg/dL (0.40-1.00); Glomerular Filtration Rate >60 (60-); Glucose, Blood 74 mg/dL (70-99); Potassium, Blood 3.2 mmol/L (3.5-5.5); Sodium, Blood 138 mmol/L (136-145)
[2018-08-04 05:36] LABS: BASOPHILS ABSOLUTE AUTO 0.05 K/mm3 (0.00-0.23); BASOPHILS PERCENT AUTO 1 % (0-2); EOSINOPHILS ABSOLUTE AUTO 0.12 K/mm3 (0.00-0.68); EOSINOPHILS PERCENT AUTO 2 % (0-6); Hematocrit 30.4 % (33.0-51.0); Hemoglobin 9.7 g/dL (11.5-16.0); IMMATURE GRAN ABSOLUTE AUTO 0.33 K/mm3 (0.00-0.10); IMMATURE GRAN PERCENT AUTO 4 % (0-1); LYMPHOCYTES ABSOLUTE AUTO 0.91 K/mm3 (0.84-5.20); LYMPHOCYTES PERCENT AUTO 12 % (21-46); MONOCYTES ABSOLUTE AUTO 1.05 K/mm3 (0.16-1.47); MONOCYTES PERCENT AUTO 13 % (4-13); Mean Corpuscular HGB 31.1 pg (26.0-34.0); Mean Corpuscular HGB Conc 31.9 g/dL (31.5-36.5); Mean Corpuscular Volume 97 fL (80-100); Mean Platelet Volume 9.3 fL (9.1-12.4); NEUTROPHILS ABSOLUTE AUTO 5.47 K/mm3 (1.96-9.15); NEUTROPHILS PERCENT AUTO 69 % (41-73); Platelet Count 382 K/mm3 (150-400); RDW Coefficient Variation 16.3 % (11.7-14.2); RDW Standard Deviation 57.1 fL (35.1-46.3); Red Blood Cell Count 3.12 M/mm3 (3.80-5.20); White Blood Cell Count 7.93 K/mm3 (4.00-11.30)
[2018-08-04 05:58] LABS: Anion Gap 7 mmol/L (6-16); Blood Urea Nitrogen 21 mg/dL (8-24); CO2, Blood 33 mmol/L (21-32); Calcium, Blood 7.9 mg/dL (8.5-10.1); Chloride, Blood 99 mmol/L (98-108); Creatinine, Blood 0.78 mg/dL (0.40-1.00); Glomerular Filtration Rate >60 (60-); Glucose, Blood 81 mg/dL (70-99); Potassium, Blood 3.2 mmol/L (3.5-5.5); Sodium, Blood 139 mmol/L (136-145)
[2018-08-04] MEDS ORDERED: FURO40 PO (15:43)
[2018-08-04] MEDS ORDERED: ALPR.25 PO (15:45)
[2018-08-04] MEDS ORDERED: COLCHICINE0.6 MG PO (15:46)
[2018-08-04] MEDS ORDERED: GABA300 PO (15:46)
[2018-08-04] MEDS ORDERED: DOCU100 PO (15:46)
[2018-08-04] MEDS ORDERED: PANT40 PO (15:48)
[2018-08-04] MEDS ORDERED: MIRT15 PO (15:48)
[2018-08-04] MEDS ORDERED: ROXICODONE5 MG PO (15:50)
[2018-08-04] MEDS ORDERED: POTCHL20ER PO (15:50)
[2018-08-04] MEDS ORDERED: ALBU3IS INH (15:51)
[2018-08-04] MEDS ORDERED: MAGNESIUM HYDROXIDE PO (15:59)
== END 2018-08-04 16:17 | DRG 551 ==
LOC: ER 18:21 → MEDS 18:22 → PCU 07-19 11:27 → MEDS 07-19 11:41 → PCU 07-24 11:07 → MEDS 08-01 14:00 → PCU 08-01 14:01 → MEDS 08-01 15:53 → ENPENDDIS 08-04 10:30 → MEDS 08-04 16:17
PROVIDERS: Emergency Medicine; Family Medicine; Hospitalist; Internal Medicine; Nurse Practitioner Acute Care; Student in an Organized Health Care Education/Training Program
PROC: 30233N1 Transfusion of Nonautologous Red Blood Cells into Peripheral Vein, Percutaneous Approach (ICD-10-PCS; principal; 2018-07-24)
DX: M43.17 Spondylolisthesis, lumbosacral region (principal); K66.1 Hemoperitoneum; R57.8 Other shock; I50.43 Acute on chronic combined systolic (congestive) and diastolic (congestive) heart failure; J18.9 Pneumonia, unspecified organism; E87.1 Hypo-osmolality and hyponatremia; I42.0 Dilated cardiomyopathy; L03.116 Cellulitis of left lower limb; D62 Acute posthemorrhagic anemia; M12.9 Arthropathy, unspecified; Z96.643 Presence of artificial hip joint, bilateral; I11.0 Hypertensive heart disease with heart failure; Z79.01 Long term (current) use of anticoagulants; E87.6 Hypokalemia; Z74.09 Other reduced mobility; M48.00 Spinal stenosis, site unspecified; E86.9 Volume depletion, unspecified; R53.1 Weakness; G47.33 Obstructive sleep apnea (adult) (pediatric); I48.0 Paroxysmal atrial fibrillation; G25.81 Restless legs syndrome; Z66 Do not resuscitate; M41.9 Scoliosis, unspecified; M10.9 Gout, unspecified; Z51.5 Encounter for palliative care; F41.8 Other specified anxiety disorders; R10.9 Unspecified abdominal pain; I95.9 Hypotension, unspecified; R60.0 Localized edema; R50.9 Fever, unspecified; G89.4 Chronic pain syndrome; W18.30XA Fall on same level, unspecified, initial encounter; Y92.9 Unspecified place or not applicable
CPT/HCPCS: 36415; 36430; 62305; 70450; 71045; 72126; 72132; 73552; 74176; 80048; 80053; 81001; 81003; 82607; 82728; 82746; 83540; 83550; 83605; 83880; 83930; 83935; 84145; 84300; 84550; 85014; 85018; 85025; 85610; 86850; 86900; 86901; 86923; 87040; 87493; 93005; 93010; 93926; 93971; 94640; 94760; 96372; 96374; 97110; 97116; 97161; 97166; 97530; 97535; 99284-25; 99285-25; C1751; C9113; G0378; G8978; G8979; G8987; G8988; J0690; J0696; J1170; J1650; J1940; J2405; J2543; J2920; J3430; J3480; J7030; J7040; J7050; P9016; Q9967

== ENCOUNTER 2018-08-06 20:09 | Inpatient (IN) | payer MEDICARE, OTHER ==
[~2018-08-06] VITALS: Ht 172.7 cm; Wt 74.3 kg
[~2018-08-06 20:09] MED LIST changes: +ALBU3IS INH; +ALPR.25 PO; +COLCHICINE0.6 MG PO; +DOCU100 PO; +GABA300 PO; +MAGNESIUM HYDROXIDE PO; +MIRT15 PO; +ROXICODONE5 MG PO
[2018-08-06 21:06] LABS: Base Excess Venous 3.8 mmol/L; PCO2 Venous 32.9 mmHg (38-42); PO2 Venous 177 mmHg (38-42); pH Blood Venous 7.52 (7.34-7.37)
[2018-08-06 21:09] LABS: BASOPHILS ABSOLUTE AUTO 0.06 K/mm3 (0.00-0.23); BASOPHILS PERCENT AUTO 0 % (0-2); EOSINOPHILS ABSOLUTE AUTO 0.14 K/mm3 (0.00-0.68); EOSINOPHILS PERCENT AUTO 1 % (0-6); Hemoglobin 10.4 g/dL (11.5-16.0); IMMATURE GRAN ABSOLUTE AUTO 0.34 K/mm3 (0.00-0.10); IMMATURE GRAN PERCENT AUTO 2 % (0-1); LYMPHOCYTES PERCENT AUTO 7 % (21-46); MONOCYTES ABSOLUTE AUTO 1.42 K/mm3 (0.16-1.47); MONOCYTES PERCENT AUTO 9 % (4-13); Mean Corpuscular HGB 31.3 pg (26.0-34.0); Mean Corpuscular HGB Conc 31.5 g/dL (31.5-36.5); Mean Corpuscular Volume 99 fL (80-100); Mean Platelet Volume 9.4 fL (9.1-12.4); NEUTROPHILS PERCENT AUTO 81 % (41-73); Platelet Count 410 K/mm3 (150-400); RDW Coefficient Variation 16.3 % (11.7-14.2); RDW Standard Deviation 59.7 fL (35.1-46.3); Red Blood Cell Count 3.32 M/mm3 (3.80-5.20); White Blood Cell Count 16.56 K/mm3 (4.00-11.30)
[2018-08-06 21:30] LABS: Alanine Aminotransfer (ALT/SGP 34 U/L (12-78); Albumin, Blood 2.2 g/dL (3.4-5.0); Albumin/Globulin Ratio 0.6 (0.8-1.8); Alk Phos 73 U/L (50-136); Anion Gap 9 mmol/L (6-16); Aspartate Aminotrans (AST/SGOT 41 U/L (12-37); Bilirubin, Total 1.1 mg/dL (0.1-1.0); Blood Urea Nitrogen 18 mg/dL (8-24); Bun/Creatinine Ratio 24.2 (12.0-20.0); CO2, Blood 26 mmol/L (21-32); Calcium, Blood 8.4 mg/dL (8.5-10.1); Chloride, Blood 100 mmol/L (98-108); Creatinine, Blood 0.74 mg/dL (0.40-1.00); Globulin, Blood 3.8 g/dL (2.2-4.0); Glomerular Filtration Rate >60 (60-); Glucose, Blood 95 mg/dL (70-99); Sodium, Blood 135 mmol/L (136-145); Troponin I 0.126 ng/mL (0.000-0.040)
[2018-08-07 05:09] LABS: BASOPHILS ABSOLUTE AUTO 0.05 K/mm3 (0.00-0.23); BASOPHILS PERCENT AUTO 0 % (0-2); EOSINOPHILS ABSOLUTE AUTO 0.12 K/mm3 (0.00-0.68); EOSINOPHILS PERCENT AUTO 1 % (0-6); Hematocrit 31.5 % (33.0-51.0); Hemoglobin 9.8 g/dL (11.5-16.0); IMMATURE GRAN ABSOLUTE AUTO 0.29 K/mm3 (0.00-0.10); IMMATURE GRAN PERCENT AUTO 2 % (0-1); LYMPHOCYTES ABSOLUTE AUTO 0.91 K/mm3 (0.84-5.20); LYMPHOCYTES PERCENT AUTO 7 % (21-46); MONOCYTES ABSOLUTE AUTO 1.47 K/mm3 (0.16-1.47); MONOCYTES PERCENT AUTO 11 % (4-13); Mean Corpuscular HGB Conc 31.1 g/dL (31.5-36.5); Mean Corpuscular Volume 100 fL (80-100); Mean Platelet Volume 9.2 fL (9.1-12.4); NEUTROPHILS ABSOLUTE AUTO 11.11 K/mm3 (1.96-9.15); NEUTROPHILS PERCENT AUTO 80 % (41-73); Platelet Count 372 K/mm3 (150-400); RDW Coefficient Variation 16.5 % (11.7-14.2); RDW Standard Deviation 60.1 fL (35.1-46.3); Red Blood Cell Count 3.16 M/mm3 (3.80-5.20); White Blood Cell Count 13.95 K/mm3 (4.00-11.30)
[2018-08-07 05:42] LABS: Source, Urine Catheter
[2018-08-07 05:43] LABS: Anion Gap 8 mmol/L (6-16); Blood Urea Nitrogen 17 mg/dL (8-24); Bun/Creatinine Ratio 22.5 (12.0-20.0); CO2, Blood 27 mmol/L (21-32); Calcium, Blood 8.1 mg/dL (8.5-10.1); Chloride, Blood 102 mmol/L (98-108); Creatinine, Blood 0.76 mg/dL (0.40-1.00); Glomerular Filtration Rate >60 (60-); Glucose, Blood 82 mg/dL (70-99); Potassium, Blood 3.5 mmol/L (3.5-5.5); Sodium, Blood 137 mmol/L (136-145)
[2018-08-07 05:45] LABS: Bilirubin, Urine Neg (Neg); Blood, Urine Neg (Neg); Glucose Qualitative, Urine Neg (Neg); Ketones, Urine Neg (Neg); Leukocyte Esterase, Urine Neg (Neg); Nitrite, Urine Neg (Neg); Protein, Urine Neg (Neg); Urobilinogen, Urine NORM (Normal)
[2018-08-07 05:56] LABS: Appearance, Urine Clear (Clear); Color, Urine Yellow (P-Yellow)
[2018-08-08 04:29] LABS: BASOPHILS ABSOLUTE AUTO 0.04 K/mm3 (0.00-0.23); BASOPHILS PERCENT AUTO 0 % (0-2); EOSINOPHILS ABSOLUTE AUTO 0.17 K/mm3 (0.00-0.68); EOSINOPHILS PERCENT AUTO 2 % (0-6); Hematocrit 28.3 % (33.0-51.0); IMMATURE GRAN ABSOLUTE AUTO 0.33 K/mm3 (0.00-0.10); IMMATURE GRAN PERCENT AUTO 3 % (0-1); LYMPHOCYTES ABSOLUTE AUTO 0.74 K/mm3 (0.84-5.20); LYMPHOCYTES PERCENT AUTO 8 % (21-46); MONOCYTES PERCENT AUTO 14 % (4-13); Mean Corpuscular HGB 31.3 pg (26.0-34.0); Mean Corpuscular HGB Conc 31.8 g/dL (31.5-36.5); Mean Corpuscular Volume 98 fL (80-100); Mean Platelet Volume 9.5 fL (9.1-12.4); NEUTROPHILS ABSOLUTE AUTO 7.08 K/mm3 (1.96-9.15); NEUTROPHILS PERCENT AUTO 73 % (41-73); Platelet Count 353 K/mm3 (150-400); RDW Coefficient Variation 16.2 % (11.7-14.2); RDW Standard Deviation 58.4 fL (35.1-46.3); Red Blood Cell Count 2.88 M/mm3 (3.80-5.20); White Blood Cell Count 9.76 K/mm3 (4.00-11.30)
[2018-08-08 05:08] LABS: Bun/Creatinine Ratio 17.4 (12.0-20.0); Calcium, Blood 7.9 mg/dL (8.5-10.1); Creatinine, Blood 0.98 mg/dL (0.40-1.00); Potassium, Blood 3.5 mmol/L (3.5-5.5)
[2018-08-10 05:51] LABS: BASOPHILS ABSOLUTE AUTO 0.05 K/mm3 (0.00-0.23); BASOPHILS PERCENT AUTO 1 % (0-2); EOSINOPHILS ABSOLUTE AUTO 0.24 K/mm3 (0.00-0.68); EOSINOPHILS PERCENT AUTO 3 % (0-6); Hematocrit 31.5 % (33.0-51.0); Hemoglobin 9.6 g/dL (11.5-16.0); IMMATURE GRAN ABSOLUTE AUTO 0.29 K/mm3 (0.00-0.10); IMMATURE GRAN PERCENT AUTO 4 % (0-1); LYMPHOCYTES ABSOLUTE AUTO 0.98 K/mm3 (0.84-5.20); LYMPHOCYTES PERCENT AUTO 13 % (21-46); MONOCYTES ABSOLUTE AUTO 1.26 K/mm3 (0.16-1.47); MONOCYTES PERCENT AUTO 17 % (4-13); Mean Corpuscular HGB 30.7 pg (26.0-34.0); Mean Corpuscular HGB Conc 30.5 g/dL (31.5-36.5); Mean Platelet Volume 9.7 fL (9.1-12.4); NEUTROPHILS ABSOLUTE AUTO 4.65 K/mm3 (1.96-9.15); NEUTROPHILS PERCENT AUTO 62 % (41-73); Platelet Count 444 K/mm3 (150-400); RDW Coefficient Variation 15.8 % (11.7-14.2); RDW Standard Deviation 58.6 fL (35.1-46.3); Red Blood Cell Count 3.13 M/mm3 (3.80-5.20); White Blood Cell Count 7.47 K/mm3 (4.00-11.30)
[2018-08-10 05:53] LABS: Mean Corpuscular Volume 101 fL (80-100)
[2018-08-10 06:26] LABS: Albumin/Globulin Ratio 0.5 (0.8-1.8); Bilirubin, Total 1.4 mg/dL (0.1-1.0); Bun/Creatinine Ratio 18.1 (12.0-20.0); Calcium, Blood 8.3 mg/dL (8.5-10.1); Globulin, Blood 3.7 g/dL (2.2-4.0); Potassium, Blood 3.6 mmol/L (3.5-5.5); Total Protein, Blood 5.7 g/dL (6.4-8.2)
[2018-08-10] MEDS ORDERED: LEVFLO500 PO (16:53)
== END 2018-08-10 14:37 | DRG 193 ==
LOC: ER 20:09 → MEDS 22:27 → ENPENDDIS 08-10 13:31 → MEDS 08-10 14:37
PROVIDERS: Emergency Medicine; Internal Medicine
DX: J18.1 Lobar pneumonia, unspecified organism (principal); I50.43 Acute on chronic combined systolic (congestive) and diastolic (congestive) heart failure; J96.01 Acute respiratory failure with hypoxia; I24.8 Other forms of acute ischemic heart disease; I11.0 Hypertensive heart disease with heart failure; D63.1 Anemia in chronic kidney disease; I48.2 Chronic atrial fibrillation; M10.9 Gout, unspecified; F32.9 Major depressive disorder, single episode, unspecified; M48.02 Spinal stenosis, cervical region; M47.9 Spondylosis, unspecified; Z66 Do not resuscitate; Z88.8 Allergy status to other drugs, medicaments and biological substances; Z91.040 Latex allergy status; Z79.899 Other long term (current) drug therapy; Z95.810 Presence of automatic (implantable) cardiac defibrillator
CPT/HCPCS: 36415; 36416; 51702; 71046; 80048; 80053; 81003; 82803; 82947; 83880; 84484; 85025; 92610; 93005; 93010; 94640; 94760; 96361; 96365; 96375; 97162; 97166; 97530; 97535; 99285-25; G8978; G8979; G8987; G8988; G8996; G8997; G8998; J1940; J1956; J2543; J7030

== ENCOUNTER → 2019-02-06 | Outpatient (CLI) | payer OTHER ==
[~2019-02-06] MED LIST changes: +ADULT ASPIRIN R81 MG PO; +Bactrim Ds Tab1 EACH PO; +COLCRYS0.6 MG; +COLCRYS0.6 MG PO; +CVS DISPOSABLE399 ML; +Ceftriaxon1 GM/50 ML IV; +DOCU100; +NEBI5; +POTA10T PO; +ROPI.25; +SANTYL30 GM TOP
== END ==
LOC: LAB 14:13 → LAB SHORT 14:13
DX: R19.7 Diarrhea, unspecified (principal)
CPT/HCPCS: 87493

== ENCOUNTER 2019-04-13 15:12 | Emergency (ER) | payer OTHER ==
[~2019-04-13] VITALS: Ht 172.7 cm; Wt 70.3 kg
[2019-04-13 15:52] LABS: BASOPHILS ABSOLUTE AUTO 0.03 K/mm3 (0.00-0.23); BASOPHILS PERCENT AUTO 1 % (0-2); EOSINOPHILS ABSOLUTE AUTO 0.14 K/mm3 (0.00-0.68); EOSINOPHILS PERCENT AUTO 3 % (0-6); Hematocrit 40.8 % (33.0-51.0); Hemoglobin 12.9 g/dL (11.5-16.0); IMMATURE GRAN ABSOLUTE AUTO 0.02 K/mm3 (0.00-0.10); IMMATURE GRAN PERCENT AUTO 0 % (0-1); LYMPHOCYTES ABSOLUTE AUTO 0.84 K/mm3 (0.84-5.20); LYMPHOCYTES PERCENT AUTO 16 % (21-46); MONOCYTES ABSOLUTE AUTO 0.85 K/mm3 (0.16-1.47); MONOCYTES PERCENT AUTO 16 % (4-13); Mean Corpuscular HGB 31.9 pg (26.0-34.0); Mean Corpuscular HGB Conc 31.6 g/dL (31.5-36.5); Mean Corpuscular Volume 101 fL (80-100); Mean Platelet Volume 10.1 fL (9.1-12.4); NEUTROPHILS ABSOLUTE AUTO 3.55 K/mm3 (1.96-9.15); NEUTROPHILS PERCENT AUTO 65 % (41-73); Platelet Count 239 K/mm3 (150-400); RDW Coefficient Variation 13.9 % (11.7-14.2); RDW Standard Deviation 52.4 fL (35.1-46.3); Red Blood Cell Count 4.04 M/mm3 (3.80-5.20); White Blood Cell Count 5.43 K/mm3 (4.00-11.30)
[2019-04-13 16:29] LABS: Albumin, Blood 3.7 g/dL (3.4-5.0); Albumin/Globulin Ratio 1.1 (0.8-1.8); Bilirubin, Total 0.5 mg/dL (0.1-1.0); Calcium, Blood 8.9 mg/dL (8.5-10.1); Globulin, Blood 3.3 g/dL (2.2-4.0); Potassium, Blood 3.7 mmol/L (3.5-5.5)
[2019-04-13] MEDS ORDERED: CEPH500 PO (17:14)
[2019-04-13] MEDS ORDERED: Bactrim Ds Tab1 EACH PO (17:14)
== END 2019-04-13 17:54 | disposition home or self-care (01) ==
LOC: ER 15:12
PROVIDERS: Physician Assistant
DX: L02.612 Cutaneous abscess of left foot (principal); L03.032 Cellulitis of left toe; I11.0 Hypertensive heart disease with heart failure; I50.9 Heart failure, unspecified; I48.91 Unspecified atrial fibrillation; Z79.899 Other long term (current) drug therapy; Z79.82 Long term (current) use of aspirin; Z79.01 Long term (current) use of anticoagulants
CPT/HCPCS: 10060; 36415; 80053; 85025; 93005; 93010; 99284-25

== ENCOUNTER 2019-04-25 06:59 | Day surgery (SDC) | payer OTHER ==
[~2019-04-25] VITALS: Ht 167.6 cm; Wt 73.0 kg
[2019-04-25] MEDS ORDERED: ALL DAY ALLERGY10 M1 PO (08:15)
[2019-04-25] MEDS ORDERED: CLOP75 PO (08:15)
[2019-04-25] MEDS ORDERED: BISA10S PR (08:19)
[2019-04-25] MEDS ORDERED: DOCU100 PO (08:21)
--- NOTE | 2019-04-25 08:39 | NUR ---
Pt arrives with walker / chair. Pt ambulatory. Hx of TIA, Mrsa. Pt with RA severe. Right radial unable to access due to shoulder impendgment and pain. 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 Pt has new stent and has been actively taking her plavix. Dr. Gatica arrives to update h & p. Pt warm with multiple warm blankets. Left flank with bruise pt stated she she fell in 1/2 empty suitcase which she got stuck in.
--- NOTE | 2019-04-25 10:06 | NUR ---
Pt with walker and personal effects under seat.
--- NOTE | 2019-04-25 12:30 | NUR ---
REPORT TAKEN FROM KAYDEN AMANDA RN TO ASSUME CARE. PT RESTING COMFORTABLY WITH R FEMORAL AND L PEDAL SITES. NO BLEEDING OR HEMATOMA'S NOTED. VSS. NADN. PT ASSISTED WITH BEDPAN, UNABLE TO URINATE AT THIS TIME. CALL LIIGHT WITHIN REACH.
--- NOTE | 2019-04-25 13:05 | NUR ---
PT ASSISTED AGAIN WITH URINATION ON BEDPAN, PT URINATES 100CC OF CLEAR YELLOW URINE OUTPUT. UPON REMOVING BEDPAN, R FEMORAL SITE SHOWS SMALL AMOUNT OF TRUPTI BLOOD, IMMEDIATE PRESSURE HELD AND ASSISTANCE CALLED FOR. VSS.
--- NOTE | 2019-04-25 13:15 | NUR ---
PER DR ARCHULETA, FEM STOP APPLIED. PT TOLERATES WELL. VSS. WILL CONTINUE TO MONITOR
--- NOTE | 2019-04-25 13:31 | NUR ---
PT DAUGHTER TO ROOM, DISCUSSING PLAN OF CARE. PT RESTING COMFORATBLY WITH FEMSTOP IN PLACE. PRESSURE LOWERED ON FEM STOP. TOLERATES WELL. VSS. NO BLEEDING NOTED. CALL IGHT WITHIN REACH WILL CONTINUE TO MONITOR
--- NOTE | 2019-04-25 14:06 | NUR ---
FEM STOP REMOVED, SLIGHT HEMATOMA AT INCISION SITE NOTED, MANUAL PRESSURE HELD. HEMATOMA REDUCED. PT TOLERATES WELL. VSS. NADN. EATING LUNCH AT THIS TIME.
--- NOTE | 2019-04-25 15:07 | NUR ---
PT RESTING COMFORTABLY, NADN. VSS. PT DENIES PAIN OR NEEDS. R FEM SITE & L PEDAL SITE REMAIN CLEAR/STABLE. NO BLEEDING NOTED. PT UPDATED ON TREATMENT PLANS. DAUGHTER, MICK NOTIFIED BY PHONE([phone]) ON PLAN OF CARE. PT WILL BE SPENDING THE NIGHT PRECAUTION D/T REBLEEDING EARLIER. VSS. NADN. CALL LIGHT WITHIN REACH.
--- NOTE | 2019-04-25 16:59 | NUR ---
ARRIVES FROM TOUR CONSULTANT: PT ARRIVES ON STRETCHER FROM TOUR CONSULTANT WITH R FEMORAL SITE THAT APPEARS TO HAVE A SMALL HEMATOMA THAT IS NOTED UPON PALPATION. DRESSING APPEARS TO BE C/D/I. SITE ON L MEDIAL ANKLE APPEARS TO BE INTACT WITH BRYANNA DRESSING IN PLACE WITH SCANT AMOUNT TO DRIED RED ON DRESSING. PT STATES NEED TO URINATE. TRANSFER PT TO ICU BED WITH 4 PERSON ASSIST WHILE [facility] RN HOLDS PRESSURE ON R GROIN SITE. LOG ROLL PT TO REMOVE BEDDING AND PLACE PT ON BEDPAN. PT HAVING DIFFICULTY URINATING WILL ASSESS NEED FOR DIAZ. ORIENT PT TO THE UNIT AND ROOM, CALL LIGHT PROVIDED. VSS AT THIS TIME. WILL CONTINUE TO MONITOR AND ASSESS FURHTER.
--- NOTE | 2019-04-25 19:01 | NUR ---
SHIFT SUMMARY: NO CHANGES NOTED SINCE ARIVAL FROM [facility]. PT HAS BEEN ABLE TO VOID URINE USING BEDPAN. REMAINED FLAT, WILL REPORT OFF FOR PT TO BEGIN SITTING UP. NO INCREASED OR S/S OF BLEEDING AT SURGICAL SITES. VSS STABLE SINCE ARIVAL. REPORT GIVEN TO MICHELE BREWER. PT SAT UP TO APPROX 20 DEGREES.
--- NOTE | 2019-04-26 00:16 | NUR ---
NOTE PT POST ANGIO. PT HAS RIGHT GROIN SITE. BRUISING NOTED AT SITE THAT WAS REPORTS TO OCCUR AFTER PROCEDURE. NO CHANGES IN DRIANING OR BRUSING AT TIME. TEGADERM REMAINS IN PLACE AND INTACT. LEFT HEEL SITE ALSO NOTED. DRESSING REMAIN SIN PLACE. NO DRAINAGE NOTED. BOTH SITES HAVE NO S/SX SWELLING, HEMATOMA OR BLEEDING. FEMSTOP REMAINS AT BEDSIDE AND AVAILIBLE IF NEEDED. PT BEGAN SITTING UP AROUND 2130 AND TOLERATING WELL. WILL CONTINUE TO MONITOR.
--- NOTE | 2019-04-26 06:27 | NUR ---
SHIFT SUMMARY PT PLEASANT, COOPERATIVE AND USES CALL LIGHT APPROPRIATELY. PT REMAINS A&O X4. VITAL SIGNS REMAIN STABLE. RT GROIN SITE REMAINS UNCHANGED FROM START OF SHIFT. SLIGHT DRAININGE NOTED BUT REMAINS UNCHANGED. PT REPORTED INCREASED PAIN IN RT SHOULDER. PRN TYLENOL WAS GIVEN. PT WAS ABLE TO SIT UP AND HAVE A SNACK AND TOELRATED WELL. PT ABLE TO USE WALKER TO GET TO BEDSIDE COMMODE AND TOLERATED WELL. BED IN LOW POSITION, CALL LIGHT IN REACH AND PT DENIES ANY NEEDS AT THIS TIME. WILL CONTINUE TO MONITOR UNTIL HANDOFF TO DAYSHIFT RN
--- NOTE | 2019-04-26 10:58 | NUR ---
DISCHARGE: PT DISCHARGED THIS AM NOTED TO BE STABLE WITH NO DISTRESS NOTED. VSS UPON DISCHARGE. EDUCATED PT ON DISCHARGE INSTRUCTIONS. GAVE PT DISCHARGE PACKET WITH DISCHARGE INSTRUCTIONS GROIN SITE EDUCATION. DAUGHTER IN LAW HERE TO TAKE PT HOME. VARYING EXCEPTIONALITIES TEACHER ASSISTED PT OUT THE DOOR IN WHEELCHAIR. ALL BELONGINGS GIVEN TO PT.
== END 2019-04-26 09:20 | disposition home or self-care (01) ==
LOC: MHTC 06:59 → ICUE 16:08 → ICUW 19:40 → MHTC 04-26 09:20
DX: I70.202 Unspecified atherosclerosis of native arteries of extremities, left leg (principal)
CPT/HCPCS: 36140; 37224; 75625; 75716; 75774; 76937; 99152; 99153; A9270; C1760; C1769; C1887; C1894; C2623; J1644; J2250; J2720; J3010; J7030; Q9967

== ENCOUNTER 2019-06-28 13:26 | Emergency (ER) | payer OTHER ==
[~2019-06-28] VITALS: Ht 170.2 cm; Wt 68.0 kg
[~2019-06-28 13:26] MED LIST changes: +ALL DAY ALLERGY10 M1 PO; +BISA10S PR
[2019-06-28] MEDS ORDERED: CEPH500 PO (15:06)
[2019-06-28] MEDS ORDERED: Bactrim Ds Tab1 EACH PO (15:06)
== END 2019-06-28 15:25 | disposition home or self-care (01) ==
LOC: ER 13:26
DX: L03.116 Cellulitis of left lower limb (principal); I48.91 Unspecified atrial fibrillation; I11.0 Hypertensive heart disease with heart failure; I50.9 Heart failure, unspecified; Z91.040 Latex allergy status; Z88.8 Allergy status to other drugs, medicaments and biological substances; Z91.048 Other nonmedicinal substance allergy status; Z79.82 Long term (current) use of aspirin; Z79.02 Long term (current) use of antithrombotics/antiplatelets; Z79.899 Other long term (current) drug therapy
CPT/HCPCS: 93971; 99284-25

== ENCOUNTER 2019-07-02 19:03 | Emergency (ER) | payer OTHER ==
[~2019-07-02] VITALS: Ht 167.6 cm; Wt 86.6 kg
[2019-07-02 19:41] LABS: BASOPHILS ABSOLUTE AUTO 0.04 K/mm3 (0.00-0.23); BASOPHILS PERCENT AUTO 1 % (0-2); EOSINOPHILS ABSOLUTE AUTO 0.15 K/mm3 (0.00-0.68); EOSINOPHILS PERCENT AUTO 3 % (0-6); Hematocrit 39.8 % (33.0-51.0); Hemoglobin 12.2 g/dL (11.5-16.0); IMMATURE GRAN ABSOLUTE AUTO 0.01 K/mm3 (0.00-0.10); IMMATURE GRAN PERCENT AUTO 0 % (0-1); LYMPHOCYTES ABSOLUTE AUTO 0.78 K/mm3 (0.84-5.20); LYMPHOCYTES PERCENT AUTO 15 % (21-46); MONOCYTES ABSOLUTE AUTO 0.66 K/mm3 (0.16-1.47); MONOCYTES PERCENT AUTO 12 % (4-13); Mean Corpuscular HGB 31.4 pg (26.0-34.0); Mean Corpuscular HGB Conc 30.7 g/dL (31.5-36.5); Mean Corpuscular Volume 103 fL (80-100); Mean Platelet Volume 10.4 fL (9.1-12.4); NEUTROPHILS ABSOLUTE AUTO 3.67 K/mm3 (1.96-9.15); NEUTROPHILS PERCENT AUTO 69 % (41-73); Platelet Count 149 K/mm3 (150-400); RDW Coefficient Variation 14.6 % (11.7-14.2); RDW Standard Deviation 54.4 fL (35.1-46.3); Red Blood Cell Count 3.88 M/mm3 (3.80-5.20); White Blood Cell Count 5.31 K/mm3 (4.00-11.30)
[2019-07-02 20:07] LABS: Acetaminophen, Random <2.0 ug/mL (10.0-30.0); Alanine Aminotransfer (ALT/SGP 25 U/L (12-78); Albumin, Blood 3.2 g/dL (3.4-5.0); Alk Phos 89 U/L (50-136); Anion Gap 5 mmol/L (6-16); Aspartate Aminotrans (AST/SGOT 45 U/L (12-37); Bilirubin, Total 0.5 mg/dL (0.1-1.0); Blood Urea Nitrogen 25 mg/dL (8-24); Bun/Creatinine Ratio 21.2 (12.0-20.0); CO2, Blood 25 mmol/L (21-32); Calcium, Blood 8.1 mg/dL (8.5-10.1); Chloride, Blood 109 mmol/L (98-108); Creatinine, Blood 1.18 mg/dL (0.40-1.00); Globulin, Blood 3.1 g/dL (2.2-4.0); Glomerular Filtration Rate 47 (60-); Glucose, Blood 100 mg/dL (70-99); Potassium, Blood 5.7 mmol/L (3.5-5.5); Sodium, Blood 139 mmol/L (136-145); Total Protein, Blood 6.3 g/dL (6.4-8.2); Troponin I <0.015 ng/mL (0.000-0.040)
[2019-07-02] MEDS ORDERED: Lasix40 MG PO (20:58)
== END 2019-07-02 22:20 | disposition home or self-care (01) ==
LOC: ER 19:03
PROVIDERS: Physician Assistant
DX: I11.0 Hypertensive heart disease with heart failure (principal); I50.9 Heart failure, unspecified; I48.91 Unspecified atrial fibrillation; Z91.040 Latex allergy status; Z88.8 Allergy status to other drugs, medicaments and biological substances; Z91.048 Other nonmedicinal substance allergy status; Z79.899 Other long term (current) drug therapy; Z79.82 Long term (current) use of aspirin
CPT/HCPCS: 36415; 71046; 80053; 83880; 84484; 85025; 96374; 99285-25; G0480; J1940

== ENCOUNTER 2019-08-12 00:43 | Emergency (ER) | payer OTHER ==
[~2019-08-12] VITALS: Ht 170.2 cm; Wt 70.3 kg
[~2019-08-12 00:43] MED LIST changes: +Lasix40 MG PO
[2019-08-12] MEDS ORDERED: Bumetanide2 MG (01:00)
[2019-08-12] MEDS ORDERED: GLUC500 PO (01:01)
[2019-08-12] MEDS ORDERED: METO5 PO (01:02)
[2019-08-12] MEDS ORDERED: SPIR25 (01:03)
[2019-08-12] MEDS ORDERED: ALBU90OI (01:04)
[2019-08-12] MEDS ORDERED: BISA10S PR (01:04)
[2019-08-12] MEDS ORDERED: HYDHOMSY (01:05)
[2019-08-12] MEDS ORDERED: Loperamide2 MG (01:06)
== END 2019-08-12 05:39 | disposition home or self-care (01) ==
LOC: ER 00:43
DX: S09.90XA Unspecified injury of head, initial encounter (principal); I10 Essential (primary) hypertension; I11.0 Hypertensive heart disease with heart failure; I50.9 Heart failure, unspecified; I48.91 Unspecified atrial fibrillation; Z95.0 Presence of cardiac pacemaker; Z88.8 Allergy status to other drugs, medicaments and biological substances; Z91.040 Latex allergy status; Z91.048 Other nonmedicinal substance allergy status; Z79.899 Other long term (current) drug therapy; Z79.82 Long term (current) use of aspirin; Z79.02 Long term (current) use of antithrombotics/antiplatelets; W01.10XA Fall on same level from slipping, tripping and stumbling with subsequent striking against unspecified object, initial encounter
CPT/HCPCS: 70450; 99284-25

== ENCOUNTER 2019-08-22 13:58 | Emergency (ER) | payer OTHER ==
[~2019-08-22] VITALS: Ht 167.6 cm; Wt 65.8 kg
[~2019-08-22 13:58] MED LIST changes: +ALBU90OI; +Bumetanide2 MG; +GLUC500 PO; +HYDHOMSY; +Loperamide2 MG; +METO5 PO; +SPIR25
[2019-08-22 15:23] LABS: BASOPHILS ABSOLUTE AUTO 0.03 K/mm3 (0.00-0.23); BASOPHILS PERCENT AUTO 0 % (0-2); EOSINOPHILS PERCENT AUTO 2 % (0-6); Hematocrit 52.1 % (33.0-51.0); Hemoglobin 17.2 g/dL (11.5-16.0); IMMATURE GRAN ABSOLUTE AUTO 0.12 K/mm3 (0.00-0.10); IMMATURE GRAN PERCENT AUTO 2 % (0-1); LYMPHOCYTES ABSOLUTE AUTO 1.58 K/mm3 (0.84-5.20); LYMPHOCYTES PERCENT AUTO 19 % (21-46); MONOCYTES ABSOLUTE AUTO 1.23 K/mm3 (0.16-1.47); MONOCYTES PERCENT AUTO 15 % (4-13); Mean Corpuscular HGB 30.7 pg (26.0-34.0); Mean Corpuscular Volume 93 fL (80-100); Mean Platelet Volume 10.1 fL (9.1-12.4); NEUTROPHILS ABSOLUTE AUTO 5.11 K/mm3 (1.96-9.15); NEUTROPHILS PERCENT AUTO 62 % (41-73); Platelet Count 244 K/mm3 (150-400); RDW Coefficient Variation 13.7 % (11.7-14.2); RDW Standard Deviation 46.5 fL (35.1-46.3); White Blood Cell Count 8.27 K/mm3 (4.00-11.30)
[2019-08-22 16:02] LABS: Alanine Aminotransfer (ALT/SGP 32 U/L (12-78); Albumin, Blood 3.4 g/dL (3.4-5.0); Albumin/Globulin Ratio 0.8 (0.8-1.8); Alk Phos 114 U/L (50-136); Anion Gap 8 mmol/L (6-16); Aspartate Aminotrans (AST/SGOT 30 U/L (12-37); Bilirubin, Total 0.6 mg/dL (0.1-1.0); Blood Urea Nitrogen 83 mg/dL (8-24); Bun/Creatinine Ratio 56.8 (12.0-20.0); CO2, Blood 31 mmol/L (21-32); Calcium, Blood 9.3 mg/dL (8.5-10.1); Chloride, Blood 93 mmol/L (98-108); Creatinine, Blood 1.46 mg/dL (0.40-1.00); Globulin, Blood 4.3 g/dL (2.2-4.0); Glomerular Filtration Rate 37 (60-); Glucose, Blood 71 mg/dL (70-99); Potassium, Blood 3.5 mmol/L (3.5-5.5); Sodium, Blood 132 mmol/L (136-145); Total Protein, Blood 7.7 g/dL (6.4-8.2); Troponin I <0.015 ng/mL (0.000-0.040)
== END 2019-08-22 18:41 | disposition home or self-care (01) ==
LOC: ER 13:58
PROVIDERS: Emergency Medicine
DX: R53.1 Weakness (principal); S42.201A Unspecified fracture of upper end of right humerus, initial encounter for closed fracture; X58.XXXA Exposure to other specified factors, initial encounter; Z88.8 Allergy status to other drugs, medicaments and biological substances; Z91.040 Latex allergy status; Z91.041 Radiographic dye allergy status; Z79.899 Other long term (current) drug therapy; Z79.82 Long term (current) use of aspirin; I11.0 Hypertensive heart disease with heart failure; I50.9 Heart failure, unspecified; I48.91 Unspecified atrial fibrillation
CPT/HCPCS: 36415; 70450; 73030; 80053; 83735; 84484; 85025; 93005; 93010; 96360; 99285-25; A9270; G0480; J7030

== ENCOUNTER 2020-04-22 12:39 | Day surgery (SDC) | payer OTHER ==
[~2020-04-22] VITALS: Ht 172.7 cm; Wt 72.7 kg
[2020-04-22] MEDS ORDERED: ALEN70 (13:45)
== END 2020-04-22 15:30 | disposition home or self-care (01) ==
LOC: ORSCSDS 12:39
PROVIDERS: Surgery
PROC: 0DBK8ZX Excision of Ascending Colon, Via Natural or Artificial Opening Endoscopic, Diagnostic (ICD-10-PCS; principal; 2020-04-22 14:15)
DX: Z12.11 Encounter for screening for malignant neoplasm of colon (principal); Z86.010 Personal history of colon polyps; D12.2 Benign neoplasm of ascending colon; K57.30 Diverticulosis of large intestine without perforation or abscess without bleeding; K64.8 Other hemorrhoids; I25.10 Atherosclerotic heart disease of native coronary artery without angina pectoris; I48.91 Unspecified atrial fibrillation; G47.33 Obstructive sleep apnea (adult) (pediatric); Z95.0 Presence of cardiac pacemaker; Z79.01 Long term (current) use of anticoagulants; Z79.82 Long term (current) use of aspirin; Z79.899 Other long term (current) drug therapy
CPT/HCPCS: 88305; J2704; J7120

== ENCOUNTER 2020-09-18 06:08 | Day surgery (SDC) | payer OTHER ==
[~2020-09-18] VITALS: Ht 162.6 cm; Wt 81.0 kg
[~2020-09-18 06:08] MED LIST changes: -ADULT ASPIRIN R81 MG PO; +ALEN70; +ASPIR 8181 M1 PO; -Bumetanide2 MG; +Bumetanide2 MG PO; -CHOL10002; -HYDHOMSY; +HYDROCODONE-AC1 EAC9 PO; -NEBI5; -SPIR25; +VITAMIN D310 MC4
[2020-09-18 07:10] LABS: BASOPHILS ABSOLUTE AUTO 0.04 K/mm3 (0.00-0.23); BASOPHILS PERCENT AUTO 1 % (0-2); EOSINOPHILS ABSOLUTE AUTO 0.19 K/mm3 (0.00-0.68); EOSINOPHILS PERCENT AUTO 3 % (0-6); Hematocrit 45.8 % (33.0-51.0); Hemoglobin 14.4 g/dL (11.5-16.0); IMMATURE GRAN ABSOLUTE AUTO 0.05 K/mm3 (0.00-0.10); IMMATURE GRAN PERCENT AUTO 1 % (0-1); LYMPHOCYTES ABSOLUTE AUTO 1.31 K/mm3 (0.84-5.20); LYMPHOCYTES PERCENT AUTO 17 % (21-46); MONOCYTES PERCENT AUTO 11 % (4-13); Mean Corpuscular HGB 29.9 pg (26.0-34.0); Mean Corpuscular HGB Conc 31.4 g/dL (31.5-36.5); Mean Corpuscular Volume 95 fL (80-100); NEUTROPHILS ABSOLUTE AUTO 5.19 K/mm3 (1.96-9.15); NEUTROPHILS PERCENT AUTO 68 % (41-73); Platelet Count 239 K/mm3 (150-400); RDW Coefficient Variation 13.3 % (11.7-14.2); RDW Standard Deviation 46.5 fL (35.1-46.3); Red Blood Cell Count 4.82 M/mm3 (3.80-5.20); White Blood Cell Count 7.58 K/mm3 (4.00-11.30)
[2020-09-18 07:24] LABS: International Normalized Ratio 0.99; Prothrombin Time Results 10.6 Sec (9.7-11.5)
[2020-09-18 07:26] LABS: Creatinine, Blood 1.07 mg/dL (0.40-1.00); Potassium, Blood 4.3 mmol/L (3.5-5.5)
--- NOTE | 2020-09-18 09:07 | NUR ---
Pt verbalized understanding of d/c instructions. Paperwork provided in folder. IV removed from left arm, catheter intact, pressure dressing applied. RAC with firm to touch, pt denies pain. Educated about how right arm may feel firm temporarily, informed her to contact provider if there is any pain, redness, or puss. She verbalized understanding. [facility] transportation arrives to take pt home. No acute distress noted at time of discharge. Pt tolerates PO fluids with no difficulties. Ambulates with assistance from FWW. Taken out to vehicle via W/C. Encouraged to follow up as needed.
== END 2020-09-18 09:00 | disposition home or self-care (01) ==
LOC: MHTC 06:08
PROVIDERS: Radiology Diagnostic Radiology
DX: I82.611 Acute embolism and thrombosis of superficial veins of right upper extremity (principal); I73.9 Peripheral vascular disease, unspecified; I11.0 Hypertensive heart disease with heart failure; I50.9 Heart failure, unspecified; I48.19 Other persistent atrial fibrillation; E78.00 Pure hypercholesterolemia, unspecified; I25.10 Atherosclerotic heart disease of native coronary artery without angina pectoris; I42.8 Other cardiomyopathies; I44.7 Left bundle-branch block, unspecified; D64.9 Anemia, unspecified; M19.90 Unspecified osteoarthritis, unspecified site; M10.9 Gout, unspecified; F41.8 Other specified anxiety disorders; I25.2 Old myocardial infarction; J45.909 Unspecified asthma, uncomplicated; Z86.73 Personal history of transient ischemic attack (TIA), and cerebral infarction without residual deficits; Z88.8 Allergy status to other drugs, medicaments and biological substances; Z91.040 Latex allergy status; Z91.048 Other nonmedicinal substance allergy status; Z79.82 Long term (current) use of aspirin; Z79.02 Long term (current) use of antithrombotics/antiplatelets; Z79.51 Long term (current) use of inhaled steroids; Z79.899 Other long term (current) drug therapy
CPT/HCPCS: 36002; 75820; 80048; 85025; 85610; 99152; C1894; J1644; J2250; J3010; J7030; Q9967

== ENCOUNTER → 2020-09-30 | Outpatient (CLI) | payer OTHER ==
[2020-09-30 10:32] LABS: BASOPHILS ABSOLUTE AUTO 0.05 K/mm3 (0.00-0.23); BASOPHILS PERCENT AUTO 1 % (0-2); EOSINOPHILS ABSOLUTE AUTO 0.15 K/mm3 (0.00-0.68); EOSINOPHILS PERCENT AUTO 2 % (0-6); Hematocrit 38.3 % (33.0-51.0); Hemoglobin 12.4 g/dL (11.5-16.0); IMMATURE GRAN ABSOLUTE AUTO 0.03 K/mm3 (0.00-0.10); IMMATURE GRAN PERCENT AUTO 1 % (0-1); LYMPHOCYTES ABSOLUTE AUTO 0.99 K/mm3 (0.84-5.20); LYMPHOCYTES PERCENT AUTO 15 % (21-46); MONOCYTES ABSOLUTE AUTO 0.65 K/mm3 (0.16-1.47); MONOCYTES PERCENT AUTO 10 % (4-13); Mean Corpuscular HGB 30.1 pg (26.0-34.0); Mean Corpuscular HGB Conc 32.4 g/dL (31.5-36.5); Mean Corpuscular Volume 93 fL (80-100); Mean Platelet Volume 10.5 fL (9.1-12.4); NEUTROPHILS PERCENT AUTO 71 % (41-73); Platelet Count 217 K/mm3 (150-400); RDW Coefficient Variation 13.5 % (11.7-14.2); RDW Standard Deviation 45.7 fL (35.1-46.3); Red Blood Cell Count 4.12 M/mm3 (3.80-5.20); White Blood Cell Count 6.47 K/mm3 (4.00-11.30)
[2020-09-30 10:35] LABS: Bun/Creatinine Ratio 17.9 (12.0-20.0); Calcium, Blood 8.5 mg/dL (8.5-10.1); Creatinine, Blood 1.17 mg/dL (0.40-1.00); Potassium, Blood 4.7 mmol/L (3.5-5.5)
== END ==
LOC: PLD 10:26 → LAB SHORT 10:26
PROVIDERS: Family Medicine
DX: I50.9 Heart failure, unspecified (principal)
CPT/HCPCS: 80048; 83880; 85025

== ENCOUNTER 2020-12-31 12:05 | Day surgery (SDC) | payer OTHER ==
[~2020-12-31] VITALS: Ht 165.1 cm; Wt 83.0 kg
[~2020-12-31 12:05] MED LIST changes: -ALBU90OI; +ALBU90OI INH; -ALL DAY ALLERGY10 M1 PO; -Loperamide2 MG; +Loperamide2 MG PO; +ZYRTEC10 M2 PO
[2020-12-31] MEDS ORDERED: CALC.25 PO (12:51)
[2020-12-31] MEDS ORDERED: DICLOFENAC SOD100 GM TD (12:54)
[2020-12-31] MEDS ORDERED: FLOVENT HFA12 GM INH (12:56)
[2020-12-31] MEDS ORDERED: PANT40 PO (12:57)
[2020-12-31] MEDS ORDERED: MONT10T PO (12:57)
[2020-12-31] MEDS ORDERED: PRAM.125 PO (13:01)
[2020-12-31] MEDS ORDERED: VITAMIN D31000 UNI1 PO (13:02)
[2020-12-31] MEDS ORDERED: BENZ100A PO (13:05)
[2020-12-31] MEDS ORDERED: DEXT30SU PO (13:07)
[2020-12-31] MEDS ORDERED: DOCU100 PO ×2 (13:07→13:08)
[2020-12-31] MEDS ORDERED: MELA3 PO (13:09)
[2020-12-31] MEDS ORDERED: DULCOLAX400 MG/5 M PO (13:11)
[2020-12-31] MEDS ORDERED: BICARSIM FORTE125 MG PO (13:12)
[2020-12-31] MEDS ORDERED: TIZA4 PO (13:13)
[2020-12-31] MEDS ORDERED: MUPIROCIN22 G2 TD (13:14)
--- NOTE | 2020-12-31 16:10 | NUR ---
DR. ARCHULETA HERE TO EVALUATE DRESSING AND DISCUSS PROCEDURE WITH PT. PRESCRIPTION FOR HYDROCODONE 5 MG EVERY 6 HOURS FOR PAIN. TO BATHROOM WITH WALKER. PT TOLERATED WELL.
--- NOTE | 2020-12-31 16:29 | NUR ---
IV REMOVED INTACT. 2X2, COBAN AND MANUAL PRESSURE APPLIED.
--- NOTE | 2020-12-31 16:31 | NUR ---
[facility] CALLED FOR FOLLOW-UP APPOINTMENT TuesdayJanuary. TO CALL PT WITH TIME.
--- NOTE | 2020-12-31 16:41 | NUR ---
DRESSED FOR DISCHARGE. DISCHARGE INSTRUCTIONS GIVEN WITH VERBAL AND WRITTEN INSTRUCTIONS.
--- NOTE | 2020-12-31 17:00 | NUR ---
discharged to [facility]. [facility] driving.
== END 2020-12-31 17:00 | disposition home or self-care (01) ==
LOC: MHTC 12:05
DX: I86.8 Varicose veins of other specified sites (principal); I48.91 Unspecified atrial fibrillation; I11.0 Hypertensive heart disease with heart failure; I50.9 Heart failure, unspecified; I71.2 Thoracic aortic aneurysm, without rupture; I25.10 Atherosclerotic heart disease of native coronary artery without angina pectoris; I42.8 Other cardiomyopathies; E78.00 Pure hypercholesterolemia, unspecified; Z86.73 Personal history of transient ischemic attack (TIA), and cerebral infarction without residual deficits
CPT/HCPCS: 37607; 76937; 99152; 99153; J0690; J2250; J3010; J7030; Q9967

== ENCOUNTER 2021-02-10 00:46 | Emergency (ER) | payer OTHER ==
[~2021-02-10] VITALS: Ht 172.7 cm; Wt 79.4 kg
[~2021-02-10 00:46] MED LIST changes: +BENZ100A PO; +BICARSIM FORTE125 MG PO; +CALC.25 PO; +DEXT30SU PO; +DICLOFENAC SOD100 GM TD; +DULCOLAX400 MG/5 M PO; +FLOVENT HFA12 GM INH; +MELA3 PO; +MONT10T PO; +MUPIROCIN22 G2 TD; +PRAM.125 PO; +TIZA4 PO; +VITAMIN D31000 UNI1 PO
[2021-02-10 01:25] LABS: BASOPHILS ABSOLUTE AUTO 0.07 K/mm3 (0.00-0.23); BASOPHILS PERCENT AUTO 1 % (0-2); EOSINOPHILS ABSOLUTE AUTO 0.21 K/mm3 (0.00-0.68); EOSINOPHILS PERCENT AUTO 2 % (0-6); Hematocrit 47.5 % (33.0-51.0); Hemoglobin 15.4 g/dL (11.5-16.0); IMMATURE GRAN ABSOLUTE AUTO 0.12 K/mm3 (0.00-0.10); IMMATURE GRAN PERCENT AUTO 1 % (0-1); LYMPHOCYTES ABSOLUTE AUTO 1.77 K/mm3 (0.84-5.20); LYMPHOCYTES PERCENT AUTO 20 % (21-46); MONOCYTES ABSOLUTE AUTO 0.96 K/mm3 (0.16-1.47); MONOCYTES PERCENT AUTO 11 % (4-13); Mean Corpuscular HGB 30.4 pg (26.0-34.0); Mean Corpuscular HGB Conc 32.4 g/dL (31.5-36.5); Mean Corpuscular Volume 94 fL (80-100); Mean Platelet Volume 10.3 fL (9.1-12.4); NEUTROPHILS ABSOLUTE AUTO 5.71 K/mm3 (1.96-9.15); NEUTROPHILS PERCENT AUTO 65 % (41-73); Platelet Count 222 K/mm3 (150-400); RDW Coefficient Variation 13.5 % (11.7-14.2); Red Blood Cell Count 5.07 M/mm3 (3.80-5.20); White Blood Cell Count 8.84 K/mm3 (4.00-11.30)
[2021-02-10 01:44] LABS: Albumin, Blood 3.2 g/dL (3.4-5.0); Albumin/Globulin Ratio 0.8 (0.8-1.8); Bilirubin, Total 0.4 mg/dL (0.1-1.0); Bun/Creatinine Ratio 26.4 (12.0-20.0); Calcium, Blood 8.7 mg/dL (8.5-10.1); Creatinine, Blood 0.98 mg/dL (0.40-1.00); Globulin, Blood 3.8 g/dL (2.2-4.0); Potassium, Blood 4.6 mmol/L (3.5-5.5)
[2021-02-10] MEDS ORDERED: DELTASONE20 MG PO (02:24)
== END 2021-02-10 03:08 | disposition home or self-care (01) ==
LOC: ER 00:46
PROVIDERS: Emergency Medicine
DX: J45.901 Unspecified asthma with (acute) exacerbation (principal); I11.0 Hypertensive heart disease with heart failure; I50.9 Heart failure, unspecified; I48.91 Unspecified atrial fibrillation; Z79.82 Long term (current) use of aspirin; Z79.899 Other long term (current) drug therapy; Z91.040 Latex allergy status; Z91.09 Other allergy status, other than to drugs and biological substances; Z79.02 Long term (current) use of antithrombotics/antiplatelets
CPT/HCPCS: 36415; 71045; 80053; 83880; 84484; 85025; 93005; 93010; 99285-25

== ENCOUNTER → 2021-03-13 | Outpatient (CLI) | payer OTHER ==
[~2021-03-13] MED LIST changes: +DELTASONE20 MG PO
[2021-03-13 17:00] LABS: Adenovirus F 40/41 Not Detected (NOT DETECT); Astrovirus Not Detected (NOT DETECT); Campylobacter Sp Not Detected (NOT DETECT); Cryptosporidium Not Detected (NOT DETECT); Cyclospora Cayetanensis Not Detected (NOT DETECT); E. Coli O157 Not Detected (NOT DETECT); Entamoeba Histolytica Not Detected (NOT DETECT); Enteroaggregative E. coli-EAEC Not Detected (NOT DETECT); Enteropathogenic E. coli-EPEC Not Detected (NOT DETECT); Enterotoxigenic E. coli-ETEC Not Detected (NOT DETECT); Giardia Lamblia Not Detected (NOT DETECT); Norovirus GI/GII Not Detected (NOT DETECT); Plesiomonas Shigelloides Not Detected (NOT DETECT); Rotavirus A Not Detected (NOT DETECT); Salmonella Sp Not Detected (NOT DETECT); Sapovirus Not Detected (NOT DETECT); Shiga Toxin-prod E. coli-STEC Not Detected (NOT DETECT); Shigella/Enteroin E. coli-EIEC Not Detected (NOT DETECT); Vibrio Cholerae Not Detected (NOT DETECT); Vibrio Sp Not Detected (NOT DETECT); Yersinia Enterocolitica Not Detected (NOT DETECT)
== END ==
LOC: LAB 13:46 → LAB SHORT 13:46
PROVIDERS: Nurse Practitioner Family
DX: R11.0 Nausea (principal); R19.7 Diarrhea, unspecified
CPT/HCPCS: 0097U

== ENCOUNTER → 2021-03-25 | Outpatient (CLI) | payer OTHER | LOC: LAB EV 10:21 → LAB SHORT 10:21 | DX: N39.0 Urinary tract infection, site not specified (principal); Z88.8 Allergy status to other drugs, medicaments and biological substances; Z91.048 Other nonmedicinal substance allergy status; Z91.040 Latex allergy status | CPT/HCPCS: 87077; 87086; 87186 ==

== ENCOUNTER 2021-05-16 13:55 | Emergency (ER) | payer OTHER ==
[~2021-05-16] VITALS: Ht 172.7 cm; Wt 86.2 kg
[2021-05-16 14:20] LABS: Hematocrit 51.3 % (33.0-51.0); Hemoglobin 16.4 g/dL (11.5-16.0); Mean Corpuscular HGB 30.5 pg (26.0-34.0); Mean Corpuscular Volume 96 fL (80-100); Mean Platelet Volume 10.2 fL (9.1-12.4); Platelet Count 250 K/mm3 (150-400); RDW Coefficient Variation 14.1 % (11.7-14.2); RDW Standard Deviation 49.3 fL (35.1-46.3); Red Blood Cell Count 5.37 M/mm3 (3.80-5.20); White Blood Cell Count 13.63 K/mm3 (4.00-11.30)
[2021-05-16 14:36] LABS: Troponin I <0.015 ng/mL (0.000-0.040)
[2021-05-16 14:37] LABS: Alanine Aminotransfer (ALT/SGP 37 U/L (12-78); Albumin, Blood 3.5 g/dL (3.4-5.0); Albumin/Globulin Ratio 0.8 (0.8-1.8); Alk Phos 58 U/L (50-136); Anion Gap 7 mmol/L (6-16); Aspartate Aminotrans (AST/SGOT 25 U/L (12-37); Bilirubin, Total 0.5 mg/dL (0.1-1.0); Blood Urea Nitrogen 45 mg/dL (8-24); Bun/Creatinine Ratio 34.9 (12.0-20.0); CO2, Blood 29 mmol/L (21-32); Calcium, Blood 8.6 mg/dL (8.5-10.1); Chloride, Blood 100 mmol/L (98-108); Creatinine, Blood 1.29 mg/dL (0.40-1.00); Globulin, Blood 4.2 g/dL (2.2-4.0); Glomerular Filtration Rate 40 (60-); Glucose, Blood 105 mg/dL (70-99); Potassium, Blood 4.4 mmol/L (3.5-5.5); Sodium, Blood 136 mmol/L (136-145); Total Protein, Blood 7.7 g/dL (6.4-8.2)
[2021-05-16 14:40] LABS: BAND PERCENT MAN 1 % (0-8); BASOPHILS PERCENT MAN 0 % (0-2); EOSINOPHILS PERCENT MAN 0 % (0-6); LYMPHOCYTES % ATYPICAL MANUAL 1 % (0-0); LYMPHOCYTES ABSOLUTE MAN 1.36 K/mm3 (0.84-5.20); LYMPHOCYTES PERCENT MAN 9 % (21-46); METAMYELOCYTE ABSOLUTE MAN 0.81 K/mm3 (0.00-0.00); METAMYELOCYTE PERCENT MAN 6 % (0-0); MONOCYTES ABSOLUTE MAN 1.09 K/mm3 (0.16-1.47); MONOCYTES PERCENT MAN 8 % (4-13); NEUTROPHILS ABSOLUTE MAN 10.35 K/mm3 (1.96-9.15); SEG NEUTROPHILS PERCENT MAN 75 % (41-73); TOTAL CELLS COUNTED 100
== END 2021-05-16 18:42 | disposition home or self-care (01) ==
LOC: ER 13:55
PROVIDERS: Emergency Medicine
DX: J44.0 Chronic obstructive pulmonary disease with (acute) lower respiratory infection (principal); J20.9 Acute bronchitis, unspecified; J44.1 Chronic obstructive pulmonary disease with (acute) exacerbation; R51.9 Headache, unspecified; Z79.82 Long term (current) use of aspirin; Z79.899 Other long term (current) drug therapy; Z91.040 Latex allergy status; Z88.8 Allergy status to other drugs, medicaments and biological substances; Z91.09 Other allergy status, other than to drugs and biological substances
CPT/HCPCS: 71046; 71260; 80053; 84484; 85025; 93005; 93010; 99285-25; Q9967

== ENCOUNTER 2021-06-10 19:42 | Emergency (ER) | payer OTHER ==
[~2021-06-10] VITALS: Ht 167.6 cm; Wt 86.2 kg
[2021-06-10 20:32] LABS: BASOPHILS ABSOLUTE AUTO 0.03 K/mm3 (0.00-0.23); BASOPHILS PERCENT AUTO 1 % (0-2); EOSINOPHILS ABSOLUTE AUTO 0.17 K/mm3 (0.00-0.68); EOSINOPHILS PERCENT AUTO 3 % (0-6); Hemoglobin 14.2 g/dL (11.5-16.0); IMMATURE GRAN ABSOLUTE AUTO 0.05 K/mm3 (0.00-0.10); IMMATURE GRAN PERCENT AUTO 1 % (0-1); LYMPHOCYTES ABSOLUTE AUTO 1.55 K/mm3 (0.84-5.20); LYMPHOCYTES PERCENT AUTO 26 % (21-46); MONOCYTES ABSOLUTE AUTO 0.69 K/mm3 (0.16-1.47); MONOCYTES PERCENT AUTO 12 % (4-13); Mean Corpuscular HGB 30.9 pg (26.0-34.0); Mean Corpuscular HGB Conc 31.6 g/dL (31.5-36.5); Mean Corpuscular Volume 98 fL (80-100); Mean Platelet Volume 9.7 fL (9.1-12.4); NEUTROPHILS ABSOLUTE AUTO 3.41 K/mm3 (1.96-9.15); NEUTROPHILS PERCENT AUTO 58 % (41-73); Platelet Count 222 K/mm3 (150-400); RDW Coefficient Variation 14.2 % (11.7-14.2); RDW Standard Deviation 51.1 fL (35.1-46.3)
[2021-06-10 20:58] LABS: Alanine Aminotransfer (ALT/SGP 24 U/L (12-78); Albumin, Blood 3.1 g/dL (3.4-5.0); Albumin/Globulin Ratio 0.8 (0.8-1.8); Alk Phos 47 U/L (50-136); Anion Gap 5 mmol/L (6-16); Aspartate Aminotrans (AST/SGOT 17 U/L (12-37); Bilirubin, Total 0.3 mg/dL (0.1-1.0); Blood Urea Nitrogen 27 mg/dL (8-24); Bun/Creatinine Ratio 27.3 (12.0-20.0); CO2, Blood 29 mmol/L (21-32); Calcium, Blood 8.7 mg/dL (8.5-10.1); Chloride, Blood 105 mmol/L (98-108); Creatinine, Blood 0.99 mg/dL (0.40-1.00); Globulin, Blood 3.7 g/dL (2.2-4.0); Glomerular Filtration Rate 55 (60-); Glucose, Blood 87 mg/dL (70-99); Potassium, Blood 4.3 mmol/L (3.5-5.5); Sodium, Blood 139 mmol/L (136-145); Total Protein, Blood 6.8 g/dL (6.4-8.2)
[2021-06-10 20:59] LABS: Troponin I <0.015 ng/mL (0.000-0.040)
== END 2021-06-11 00:12 | disposition home or self-care (01) ==
LOC: ER 19:42
PROVIDERS: Emergency Medicine
DX: R06.09 Other forms of dyspnea (principal); I11.0 Hypertensive heart disease with heart failure; I50.9 Heart failure, unspecified; J45.909 Unspecified asthma, uncomplicated; G25.81 Restless legs syndrome; Z88.8 Allergy status to other drugs, medicaments and biological substances; Z91.040 Latex allergy status; Z91.048 Other nonmedicinal substance allergy status; Z79.82 Long term (current) use of aspirin; Z79.899 Other long term (current) drug therapy
CPT/HCPCS: 36415; 71045; 80053; 83880; 84484; 85025; 93005; 93010; 99285-25

== ENCOUNTER 2021-07-10 09:44 | Emergency (ER) | payer OTHER ==
[~2021-07-10] VITALS: Ht 172.7 cm; Wt 87.1 kg
[2021-07-10 11:02] LABS: BASOPHILS ABSOLUTE AUTO 0.07 K/mm3 (0.00-0.23); BASOPHILS PERCENT AUTO 1 % (0-2); EOSINOPHILS ABSOLUTE AUTO 0.15 K/mm3 (0.00-0.68); EOSINOPHILS PERCENT AUTO 2 % (0-6); Hematocrit 44.3 % (33.0-51.0); Hemoglobin 14.2 g/dL (11.5-16.0); IMMATURE GRAN ABSOLUTE AUTO 0.11 K/mm3 (0.00-0.10); IMMATURE GRAN PERCENT AUTO 2 % (0-1); LYMPHOCYTES ABSOLUTE AUTO 1.19 K/mm3 (0.84-5.20); LYMPHOCYTES PERCENT AUTO 16 % (21-46); MONOCYTES ABSOLUTE AUTO 0.75 K/mm3 (0.16-1.47); MONOCYTES PERCENT AUTO 10 % (4-13); Mean Corpuscular HGB 30.9 pg (26.0-34.0); Mean Corpuscular HGB Conc 32.1 g/dL (31.5-36.5); Mean Corpuscular Volume 97 fL (80-100); Mean Platelet Volume 10.2 fL (9.1-12.4); NEUTROPHILS ABSOLUTE AUTO 4.99 K/mm3 (1.96-9.15); NEUTROPHILS PERCENT AUTO 69 % (41-73); Platelet Count 231 K/mm3 (150-400); RDW Coefficient Variation 13.7 % (11.7-14.2); RDW Standard Deviation 48.8 fL (35.1-46.3); Red Blood Cell Count 4.59 M/mm3 (3.80-5.20); White Blood Cell Count 7.26 K/mm3 (4.00-11.30)
== END 2021-07-10 12:51 | disposition home or self-care (01) ==
LOC: ER 09:44
PROVIDERS: Emergency Medicine Emergency Medical Services
DX: S00.03XA Contusion of scalp, initial encounter (principal); S70.01XA Contusion of right hip, initial encounter; I11.0 Hypertensive heart disease with heart failure; I50.9 Heart failure, unspecified; I48.91 Unspecified atrial fibrillation; J45.909 Unspecified asthma, uncomplicated; D64.9 Anemia, unspecified; Z91.040 Latex allergy status; Z91.048 Other nonmedicinal substance allergy status; Z88.8 Allergy status to other drugs, medicaments and biological substances; Z79.899 Other long term (current) drug therapy; Z79.82 Long term (current) use of aspirin; Z79.02 Long term (current) use of antithrombotics/antiplatelets; W18.30XA Fall on same level, unspecified, initial encounter
CPT/HCPCS: 36415; 70450; 72125; 72192; 85025; 93005; 93010; 96374; 96375; 99284-25; J2405; J3010

== ENCOUNTER 2021-08-12 21:18 | Emergency (ER) | payer OTHER ==
[~2021-08-12] VITALS: Ht 165.1 cm; Wt 81.7 kg
[~2021-08-12 21:18] MED LIST changes: +CEFP200 PO
[2021-08-12 23:33] LABS: BASOPHILS ABSOLUTE AUTO 0.04 K/mm3 (0.00-0.23); BASOPHILS PERCENT AUTO 1 % (0-2); EOSINOPHILS ABSOLUTE AUTO 0.15 K/mm3 (0.00-0.68); EOSINOPHILS PERCENT AUTO 2 % (0-6); Hematocrit 43.3 % (33.0-51.0); Hemoglobin 13.7 g/dL (11.5-16.0); IMMATURE GRAN ABSOLUTE AUTO 0.04 K/mm3 (0.00-0.10); IMMATURE GRAN PERCENT AUTO 1 % (0-1); LYMPHOCYTES ABSOLUTE AUTO 0.99 K/mm3 (0.84-5.20); LYMPHOCYTES PERCENT AUTO 14 % (21-46); MONOCYTES ABSOLUTE AUTO 1.04 K/mm3 (0.16-1.47); MONOCYTES PERCENT AUTO 14 % (4-13); Mean Corpuscular HGB 30.9 pg (26.0-34.0); Mean Corpuscular HGB Conc 31.6 g/dL (31.5-36.5); Mean Corpuscular Volume 98 fL (80-100); Mean Platelet Volume 9.5 fL (9.1-12.4); NEUTROPHILS ABSOLUTE AUTO 5.06 K/mm3 (1.96-9.15); NEUTROPHILS PERCENT AUTO 69 % (41-73); Platelet Count 212 K/mm3 (150-400); RDW Coefficient Variation 14.4 % (11.7-14.2); RDW Standard Deviation 51.4 fL (35.1-46.3); Red Blood Cell Count 4.43 M/mm3 (3.80-5.20); White Blood Cell Count 7.32 K/mm3 (4.00-11.30)
[2021-08-12 23:52] LABS: Albumin, Blood 3.4 g/dL (3.4-5.0); Albumin/Globulin Ratio 0.9 (0.8-1.8); Bilirubin, Total 0.8 mg/dL (0.1-1.0); Bun/Creatinine Ratio 23.6 (12.0-20.0); Calcium, Blood 9.2 mg/dL (8.5-10.1); Creatinine, Blood 1.06 mg/dL (0.40-1.00); Globulin, Blood 3.8 g/dL (2.2-4.0); Potassium, Blood 3.4 mmol/L (3.5-5.5); Total Protein, Blood 7.2 g/dL (6.4-8.2)
== END 2021-08-13 01:45 | disposition home or self-care (01) ==
LOC: ER 21:18
PROVIDERS: Physician Assistant
DX: K64.8 Other hemorrhoids (principal); I11.0 Hypertensive heart disease with heart failure; I50.9 Heart failure, unspecified; I48.91 Unspecified atrial fibrillation; J45.909 Unspecified asthma, uncomplicated; D64.9 Anemia, unspecified; Z88.8 Allergy status to other drugs, medicaments and biological substances; Z91.040 Latex allergy status; Z91.048 Other nonmedicinal substance allergy status; Z79.899 Other long term (current) drug therapy; Z79.82 Long term (current) use of aspirin
CPT/HCPCS: 36415; 80053; 85025; 86850; 86900; 86901; 93005; 93010; 99285-25

== ENCOUNTER 2021-08-24 16:40 | Emergency (ER) | payer OTHER ==
[~2021-08-24] VITALS: Ht 172.7 cm; Wt 70.3 kg
[2021-08-24 17:45] LABS: BASOPHILS ABSOLUTE AUTO 0.05 K/mm3 (0.00-0.23); BASOPHILS PERCENT AUTO 1 % (0-2); EOSINOPHILS ABSOLUTE AUTO 0.19 K/mm3 (0.00-0.68); EOSINOPHILS PERCENT AUTO 2 % (0-6); Hematocrit 36.1 % (33.0-51.0); Hemoglobin 11.3 g/dL (11.5-16.0); IMMATURE GRAN ABSOLUTE AUTO 0.05 K/mm3 (0.00-0.10); IMMATURE GRAN PERCENT AUTO 1 % (0-1); LYMPHOCYTES ABSOLUTE AUTO 0.98 K/mm3 (0.84-5.20); LYMPHOCYTES PERCENT AUTO 12 % (21-46); MONOCYTES ABSOLUTE AUTO 0.96 K/mm3 (0.16-1.47); MONOCYTES PERCENT AUTO 12 % (4-13); Mean Corpuscular HGB 30.7 pg (26.0-34.0); Mean Corpuscular HGB Conc 31.3 g/dL (31.5-36.5); Mean Corpuscular Volume 98 fL (80-100); Mean Platelet Volume 9.8 fL (9.1-12.4); NEUTROPHILS ABSOLUTE AUTO 5.95 K/mm3 (1.96-9.15); NEUTROPHILS PERCENT AUTO 73 % (41-73); Platelet Count 251 K/mm3 (150-400); RDW Coefficient Variation 14.3 % (11.7-14.2); RDW Standard Deviation 51.7 fL (35.1-46.3); Red Blood Cell Count 3.68 M/mm3 (3.80-5.20); White Blood Cell Count 8.18 K/mm3 (4.00-11.30)
[2021-08-24 18:05] LABS: Alanine Aminotransfer (ALT/SGP 21 U/L (12-78); Albumin, Blood 2.9 g/dL (3.4-5.0); Albumin/Globulin Ratio 0.7 (0.8-1.8); Alk Phos 58 U/L (50-136); Anion Gap 8 mmol/L (6-16); Aspartate Aminotrans (AST/SGOT 21 U/L (12-37); Bilirubin, Total 0.5 mg/dL (0.1-1.0); Blood Urea Nitrogen 26 mg/dL (8-24); CO2, Blood 26 mmol/L (21-32); Calcium, Blood 8.9 mg/dL (8.5-10.1); Chloride, Blood 103 mmol/L (98-108); Creatinine, Blood 1.18 mg/dL (0.40-1.00); Globulin, Blood 4.2 g/dL (2.2-4.0); Glomerular Filtration Rate 44 (60-); Glucose, Blood 91 mg/dL (70-99); Potassium, Blood 4.3 mmol/L (3.5-5.5); Sodium, Blood 137 mmol/L (136-145); Total Protein, Blood 7.1 g/dL (6.4-8.2); Troponin I <0.015 ng/mL (0.000-0.040)
[2021-08-24 18:34] LABS: Source, Urine Clean Catch
[2021-08-24 18:42] LABS: Appearance, Urine Hazy (Clear); Bilirubin, Urine Neg (Neg); Blood, Urine 4+ (Neg); Color, Urine Yellow (P-Yellow); Glucose Qualitative, Urine Neg (Neg); Ketones, Urine Neg (Neg); Leukocyte Esterase, Urine Neg (Neg); Nitrite, Urine Neg (Neg); Protein, Urine Neg (Neg); Specific Gravity, Urine 1.015 (1.003-1.022); Urobilinogen, Urine NORM (Normal)
[2021-08-24 19:03] LABS: Bacteria Mod /hpf; Red Blood Cells, Urine Rare /hpf (0-2); Squamous Epithelial Cells Many /hpf (Few); White Blood Cells, Urine 0-2 /hpf (0-5)
== END 2021-08-24 20:13 | disposition home or self-care (01) ==
LOC: ER 16:40
PROVIDERS: Physician Assistant
DX: R10.10 Upper abdominal pain, unspecified (principal); Z88.8 Allergy status to other drugs, medicaments and biological substances; Z91.040 Latex allergy status; Z91.048 Other nonmedicinal substance allergy status; Z79.899 Other long term (current) drug therapy; Z79.82 Long term (current) use of aspirin; Z79.891 Long term (current) use of opiate analgesic; I48.91 Unspecified atrial fibrillation; I11.0 Hypertensive heart disease with heart failure; I50.9 Heart failure, unspecified; M10.9 Gout, unspecified
CPT/HCPCS: 71046; 80053; 81001; 83690; 84484; 85025; 87086; 93005; 93010; 99284-25

== ENCOUNTER → 2021-09-02 | Outpatient (CLI) | payer OTHER ==
[2021-09-02 13:13] LABS: Appearance, Urine Hazy (Clear); Bilirubin, Urine Neg (Neg); Blood, Urine 1+ (Neg); Color, Urine Yellow (P-Yellow); Glucose Qualitative, Urine Neg (Neg); Ketones, Urine Neg (Neg); Leukocyte Esterase, Urine 3+ (Neg); Nitrite, Urine Neg (Neg); Protein, Urine 1+ (Neg); Urobilinogen, Urine NORM (Normal)
[2021-09-02 13:29] LABS: White Blood Cells, Urine 25-50 /hpf (0-5)
[2021-09-02 13:30] LABS: Bacteria Many /hpf; Red Blood Cells, Urine 0-2 /hpf (0-2); Squamous Epithelial Cells Mod /hpf (Few)
== END ==
LOC: LAB SHORT 10:30
PROVIDERS: Nurse Practitioner Family
DX: N39.0 Urinary tract infection, site not specified (principal)
CPT/HCPCS: 81001; 87077; 87086; 87186

== ENCOUNTER 2021-09-11 17:48 | Emergency (ER) | payer OTHER ==
[~2021-09-11] VITALS: Ht 175.3 cm; Wt 76.7 kg
[2021-09-11 18:14] LABS: BASOPHILS ABSOLUTE AUTO 0.06 K/mm3 (0.00-0.23); BASOPHILS PERCENT AUTO 1 % (0-2); EOSINOPHILS ABSOLUTE AUTO 0.18 K/mm3 (0.00-0.68); EOSINOPHILS PERCENT AUTO 2 % (0-6); Hematocrit 39.9 % (33.0-51.0); Hemoglobin 11.9 g/dL (11.5-16.0); IMMATURE GRAN ABSOLUTE AUTO 0.03 K/mm3 (0.00-0.10); IMMATURE GRAN PERCENT AUTO 0 % (0-1); LYMPHOCYTES PERCENT AUTO 12 % (21-46); MONOCYTES ABSOLUTE AUTO 0.96 K/mm3 (0.16-1.47); MONOCYTES PERCENT AUTO 11 % (4-13); Mean Corpuscular HGB 29.2 pg (26.0-34.0); Mean Corpuscular HGB Conc 29.8 g/dL (31.5-36.5); Mean Corpuscular Volume 98 fL (80-100); Mean Platelet Volume 9.4 fL (9.1-12.4); NEUTROPHILS ABSOLUTE AUTO 6.34 K/mm3 (1.96-9.15); NEUTROPHILS PERCENT AUTO 74 % (41-73); Platelet Count 300 K/mm3 (150-400); RDW Coefficient Variation 14.1 % (11.7-14.2); RDW Standard Deviation 50.7 fL (35.1-46.3); Red Blood Cell Count 4.07 M/mm3 (3.80-5.20); White Blood Cell Count 8.57 K/mm3 (4.00-11.30)
[2021-09-11 18:41] LABS: Albumin/Globulin Ratio 0.7 (0.8-1.8); Bilirubin, Total 0.4 mg/dL (0.1-1.0); Bun/Creatinine Ratio 19.1 (12.0-20.0); Calcium, Blood 9.1 mg/dL (8.5-10.1); Creatinine, Blood 1.1 mg/dL (0.40-1.00); Globulin, Blood 4.2 g/dL (2.2-4.0); Potassium, Blood 4.5 mmol/L (3.5-5.5); Total Protein, Blood 7.2 g/dL (6.4-8.2)
[2021-09-11] MEDS ORDERED: CEFD300 PO (20:04)
== END 2021-09-11 21:10 | disposition home or self-care (01) ==
LOC: ER 17:48
PROVIDERS: Emergency Medicine
DX: N39.0 Urinary tract infection, site not specified (principal); R41.0 Disorientation, unspecified; I11.0 Hypertensive heart disease with heart failure; I50.9 Heart failure, unspecified; Z79.899 Other long term (current) drug therapy; Z91.040 Latex allergy status
CPT/HCPCS: 36415; 71045; 80053; 83880; 85025; 93005; 93010; 96365; 99284-25; J0696

== ENCOUNTER → 2021-09-29 | Outpatient (CLI) | payer OTHER ==
[~2021-09-29] MED LIST changes: +CEFD300 PO
[2021-09-29 17:47] LABS: Appearance, Urine Hazy (Clear); Bilirubin, Urine Neg (Neg); Blood, Urine 2+ (Neg); Color, Urine Yellow (P-Yellow); Glucose Qualitative, Urine Neg (Neg); Ketones, Urine Neg (Neg); Leukocyte Esterase, Urine 3+ (Neg); Nitrite, Urine Pos (Neg); Protein, Urine 2+ (Neg); Urobilinogen, Urine NORM (Normal)
[2021-09-29 17:55] LABS: Bacteria Many /hpf; Red Blood Cells, Urine 0-2 /hpf (0-2); Squamous Epithelial Cells Few /hpf (Few); White Blood Cells, Urine 50-100 /hpf (0-5)
== END ==
LOC: LAB SHORT 15:00
PROVIDERS: Family Medicine
DX: N39.0 Urinary tract infection, site not specified (principal); Z88.8 Allergy status to other drugs, medicaments and biological substances; Z91.048 Other nonmedicinal substance allergy status; Z91.040 Latex allergy status
CPT/HCPCS: 81001; 87077; 87086; 87186

== ENCOUNTER 2021-10-20 05:13 | Emergency (ER) | payer OTHER ==
[~2021-10-20] VITALS: Ht 177.8 cm; Wt 89.4 kg
[~2021-10-20 05:13] MED LIST changes: +BUME2 PO; -Bumetanide2 MG PO; -PRAM.125 PO; +PRAM.5 PO
[2021-10-20] MEDS ORDERED: Ventolin5 MG/1 ML INH (05:17)
[2021-10-20] MEDS ORDERED: AMIT50 PO (05:23)
[2021-10-20] MEDS ORDERED: AKWA Tears15 ML BOTHEYES (05:24)
[2021-10-20] MEDS ORDERED: Voltaren100 GM (05:25)
[2021-10-20] MEDS ORDERED: Voltaren100 GM TOP (05:25)
[2021-10-20] MEDS ORDERED: Fiber625 MG PO (05:26)
[2021-10-20] MEDS ORDERED: METO5 PO (05:27)
[2021-10-20] MEDS ORDERED: NYSTRIT TOP (05:29)
[2021-10-20] MEDS ORDERED: BENZ100A PO (05:30)
[2021-10-20] MEDS ORDERED: BISA10S PR (05:31)
[2021-10-20] MEDS ORDERED: ZEBUTAL 50-3251 EAC1 (05:32)
[2021-10-20] MEDS ORDERED: Colace100 MG PO (05:34)
[2021-10-20] MEDS ORDERED: DULCOLAX400 MG/51 PO (05:35)
[2021-10-20] MEDS ORDERED: MITIGARE0.6 M1 PO (05:36)
[2021-10-20] MEDS ORDERED: ONDA4 (05:36)
[2021-10-20] MEDS ORDERED: SIME80CH PO (05:37)
[2021-10-20] MEDS ORDERED: POLYETHYLENE G500 G1 PO (05:37)
[2021-10-20] MEDS ORDERED: MUPIROCIN22 G6 TP (05:38)
[2021-10-20] MEDS ORDERED: PROBIOTIC1 EA13 PO (05:39)
[2021-10-20] MEDS ORDERED: STIOLTO RESPIMAT4 G1 INH (05:39)
[2021-10-20] MEDS ORDERED: CEFD300 PO (08:17)
== END 2021-10-20 11:00 | disposition home or self-care (01) ==
LOC: ER 05:13
DX: S76.011A Strain of muscle, fascia and tendon of right hip, initial encounter (principal); S00.83XA Contusion of other part of head, initial encounter; L03.116 Cellulitis of left lower limb; R07.89 Other chest pain; I11.0 Hypertensive heart disease with heart failure; I50.9 Heart failure, unspecified; I48.91 Unspecified atrial fibrillation; J45.909 Unspecified asthma, uncomplicated; D63.8 Anemia in other chronic diseases classified elsewhere; M10.9 Gout, unspecified; Z91.040 Latex allergy status; Z88.8 Allergy status to other drugs, medicaments and biological substances; Z91.048 Other nonmedicinal substance allergy status; Z79.899 Other long term (current) drug therapy; Z79.82 Long term (current) use of aspirin; W19.XXXA Unspecified fall, initial encounter
CPT/HCPCS: 36415; 70450; 71100; 72125; 73502; 99284-25

== ENCOUNTER 2021-10-23 09:27 | Inpatient (IN) | payer OTHER ==
[~2021-10-23] VITALS: Ht 172.7 cm; Wt 88.9 kg
[~2021-10-23 09:27] MED LIST changes: -ALBU90OI INH; -ASPIR 8181 M1 PO; -BUME2 PO; -CALC.25 PO; -FLOVENT HFA12 GM INH; -GABA300 PO; -HYDROCODONE-AC1 EAC9 PO; -MONT10T PO; -PRAM.5 PO; -TIZA4 PO; -Tylenol325 MG PO; -VITAMIN D31000 UNI1 PO; -ZYRTEC10 M2 PO
[2021-10-23 10:24] LABS: BASOPHILS ABSOLUTE AUTO 0.03 K/mm3 (0.00-0.23); BASOPHILS PERCENT AUTO 0 % (0-2); EOSINOPHILS ABSOLUTE AUTO 0.01 K/mm3 (0.00-0.68); EOSINOPHILS PERCENT AUTO 0 % (0-6); Hematocrit 39.7 % (33.0-51.0); Hemoglobin 12.7 g/dL (11.5-16.0); IMMATURE GRAN ABSOLUTE AUTO 0.08 K/mm3 (0.00-0.10); IMMATURE GRAN PERCENT AUTO 1 % (0-1); LYMPHOCYTES ABSOLUTE AUTO 0.69 K/mm3 (0.84-5.20); LYMPHOCYTES PERCENT AUTO 5 % (21-46); MONOCYTES ABSOLUTE AUTO 2.07 K/mm3 (0.16-1.47); MONOCYTES PERCENT AUTO 15 % (4-13); Mean Corpuscular HGB 26.5 pg (26.0-34.0); Mean Corpuscular Volume 83 fL (80-100); Mean Platelet Volume 10.5 fL (9.1-12.4); NEUTROPHILS ABSOLUTE AUTO 10.55 K/mm3 (1.96-9.15); NEUTROPHILS PERCENT AUTO 79 % (41-73); Platelet Count 274 K/mm3 (150-400); RDW Coefficient Variation 14.8 % (11.7-14.2); RDW Standard Deviation 44.5 fL (35.1-46.3); White Blood Cell Count 13.43 K/mm3 (4.00-11.30)
[2021-10-23 10:52] LABS: Magnesium, Blood 2.5 mg/dL (1.6-2.4); Thyroid Stimulating Hormone 0.991 uIU/mL (0.360-4.800)
[2021-10-23 11:05] LABS: Source, Urine Catheter
[2021-10-23 11:12] LABS: Appearance, Urine Clear (Clear); Bilirubin, Urine Neg (Neg); Blood, Urine Neg (Neg); Color, Urine Yellow (P-Yellow); Glucose Qualitative, Urine Neg (Neg); Ketones, Urine Neg (Neg); Leukocyte Esterase, Urine Neg (Neg); Nitrite, Urine Neg (Neg); Protein, Urine Neg (Neg); Specific Gravity, Urine 1.015 (1.003-1.022); Urobilinogen, Urine NORM (Normal)
[2021-10-23 11:18] LABS: Albumin, Blood 2.7 g/dL (3.4-5.0); Albumin/Globulin Ratio 0.6 (0.8-1.8); Creatinine, Blood 1.7 mg/dL (0.40-1.00); Globulin, Blood 4.2 g/dL (2.2-4.0); Potassium, Blood 2.3 mmol/L (3.5-5.5); Total Protein, Blood 6.9 g/dL (6.4-8.2)
[2021-10-23 11:26] LABS: U Amphetamine Screen Not Detected; U Barbituate Screen Not Detected; U Benzodiazapine Screen Not Detected; U Buprenorphine Screen Not Detected; U Cannabinoids Screen Not Detected; U Cocaine Screen Not Detected; U Methadone Screen Not Detected; U Methamphetamine Screen Not Detected; U Opiates Screen Not Detected; U Oxycodone Screen Not Detected; U Phencyclidine Screen Not Detected; U Propoxyphene Screen Not Detected
[2021-10-23 17:24] LABS: Albumin, Blood 2.4 g/dL (3.4-5.0); Anion Gap 9 mmol/L (6-16); Blood Urea Nitrogen 97 mg/dL (8-24); Bun/Creatinine Ratio 64.7 (12.0-20.0); CO2, Blood 34 mmol/L (21-32); Calcium, Blood 8.8 mg/dL (8.5-10.1); Chloride, Blood 90 mmol/L (98-108); Glomerular Filtration Rate 34 (60-); Glucose, Blood 106 mg/dL (70-99); Phosphorus, Blood 3.5 mg/dL (2.5-4.9); Potassium, Blood 3.2 mmol/L (3.5-5.5); Sodium, Blood 133 mmol/L (136-145)
[2021-10-24 01:16] LABS: Hematocrit 41.1 % (33.0-51.0); Hemoglobin 12.9 g/dL (11.5-16.0); Mean Corpuscular HGB 26.9 pg (26.0-34.0); Mean Corpuscular HGB Conc 31.4 g/dL (31.5-36.5); Mean Corpuscular Volume 86 fL (80-100); Mean Platelet Volume 10.9 fL (9.1-12.4); Platelet Count 272 K/mm3 (150-400); RDW Coefficient Variation 14.8 % (11.7-14.2); Red Blood Cell Count 4.79 M/mm3 (3.80-5.20); White Blood Cell Count 10.81 K/mm3 (4.00-11.30)
[2021-10-24 01:40] LABS: Calcium, Blood 8.9 mg/dL (8.5-10.1); Creatinine, Blood 1.44 mg/dL (0.40-1.00); Potassium, Blood 2.7 mmol/L (3.5-5.5)
--- NOTE | 2021-10-24 05:08 | NUR ---
SHIFT SUMMARY PT ARRIVED ON THE UNIT AROUND 0 VIA HOSPITAL BED AND AOX2. PT HAS CONFUSION MORE AT NIGHT ACCORDING TO REPORT AND SELF CONVERSING EXAMINED BY THIS NURSE THIS SHIFT. PT. COULD NOT RECALL ALL THEIR HX BUT COULD ANSWER MOST QUESTIONS. THE PT REFUSES TO KEEP THE TELE MONITOR OWN STATING, "I HAVE A PACEMAKER I DON'T NEED THIS THING ON ME!" PT. DISORIENTED BUT EASY TO REDIRECT WHILE COOPERATIVE WITH CARE THIS SHIFT. PT. HS MEDS WERE DELAYED BUT FIXED BY PHARMACY, WHICH WERE TOLERATED WELL PO. THE PT HAS FINALLY GONE TO SLEEP WITH A RISE AND FALL OF CHEST. PT RANDOMLY YELLS OUT IN THEIR SLEEP BUT THIS NURSE WILL CONTINUE TO MONITOR UNTIL REPORT IS GIVEN.
--- NOTE | 2021-10-24 17:07 | NUR ---
SHIFT SUMMARY 76 Y FEMALE ADMITTED FOR WEAKNESS AND AMS. PT IS A&O X2-3 WITH SOME CONFUSED TALK. PT IS ABLE TO ANSWER QUESTIONS APPROPRIATELY MOST OF THE TIME AND IS EASILY REORIENTED. PT HAS SLEPT ON AND OFF MOST OF THE DAY. SHE WAS ABLE TO GET UP WITH PT AND WALK MOST OF THE WAY TO THE BATHROOM. PT ALSO BEING TX FOR HYPOK+ WITH ORAL KDUR SUPPLEMENTS TODAY. PT HAS BEEN NS PACED IN THE 80'S PER TELE TODAY. NO OTHER CHANGES TO REPORT THIS SHIFT.
--- NOTE | 2021-10-25 04:30 | NUR ---
SHIFT SUMMARY PT AOX2 AND PLEASANT WHILE SOMEWHAT COOPERATIVE WITH CARE AT TIMES. INCREASED CONFUSION AND SELF CONVERSATIONS NOTICED MORE THIS SHIFT. PT FORGETS LOCATION OFTEN AND HAVING DEPRESSION FROM BEING AWAY FROM FAMILY AND FRIENDS. PT EASY TO REDIRECT AND MEDICATED PER EMAR THIS SHIFT. TELE SHOWING PACED HR THIS SHIFT IN THE 90s. PT WAS ABLE TO REST A FEW HOURS THIS SHIFT BUT CURRENTLY AWAKE TALKING TO REFLECTION IN THE WINDOW. THIS NURSE WILL CONTINUE TO MONITOR UNTIL REPORT IS GIVEN.
[2021-10-25 04:50] LABS: Hemoglobin 12.4 g/dL (11.5-16.0); Mean Corpuscular HGB 26.9 pg (26.0-34.0); Mean Corpuscular HGB Conc 31.8 g/dL (31.5-36.5); Mean Corpuscular Volume 85 fL (80-100); Mean Platelet Volume 10.7 fL (9.1-12.4); Platelet Count 270 K/mm3 (150-400); RDW Coefficient Variation 14.7 % (11.7-14.2); RDW Standard Deviation 45.7 fL (35.1-46.3); Red Blood Cell Count 4.61 M/mm3 (3.80-5.20); White Blood Cell Count 8.43 K/mm3 (4.00-11.30)
[2021-10-25 05:16] LABS: Bun/Creatinine Ratio 65.9 (12.0-20.0); Calcium, Blood 9.1 mg/dL (8.5-10.1); Creatinine, Blood 1.32 mg/dL (0.40-1.00); Potassium, Blood 2.8 mmol/L (3.5-5.5)
--- NOTE | 2021-10-25 17:48 | NUR ---
PT SUMMARY: NO ACUTE CHANGE FOR THE SHIFT, VITALS HRR REMAINED PACED AT 85, BP SYSTOLIC 110-115, SATS REMAINED ABOVE 95% ON 2L OF O2, AFEBRILE. PT C/O ALL OVER CHRONIC PAIN ON SCHEDULED NORCO AND WAS EFFECTIVE. PT HAS BEEN UP IN THE RECLINER MOST OF THE SHIFT, 1PA FOR TRANSFERS VIA FWW AND GAIT BELT USED THE COMMODE TWICE TO VOID NO BM REPORTED BUT HAS BEEN PASSING GAS. SON CAME IN TO VISIT AND GOT UPDATED REGARDING PT PLAN OF CARE, POTASSIUM WAS REPLACED THIS MORNING [facility]S IN AM. NO OTHER ISSUES REPORTED, PT HAS BEEN CALLING APPROPRIATELY, REMAINS ALERT AND ORIENTED WITH SOME CONFUSION. ABLE TO MAKE NEEDS KNOWN, WILL REPORT TO ONCOMING SHIFT
[2021-10-26 05:07] LABS: Hematocrit 38.3 % (33.0-51.0); Hemoglobin 12.2 g/dL (11.5-16.0); Mean Corpuscular HGB 26.7 pg (26.0-34.0); Mean Corpuscular HGB Conc 31.9 g/dL (31.5-36.5); Mean Corpuscular Volume 84 fL (80-100); Mean Platelet Volume 10.6 fL (9.1-12.4); Platelet Count 298 K/mm3 (150-400); RDW Coefficient Variation 14.6 % (11.7-14.2); RDW Standard Deviation 44.4 fL (35.1-46.3); Red Blood Cell Count 4.57 M/mm3 (3.80-5.20); White Blood Cell Count 8.47 K/mm3 (4.00-11.30)
[2021-10-26 05:29] LABS: Bun/Creatinine Ratio 66.1 (12.0-20.0); Creatinine, Blood 1.12 mg/dL (0.40-1.00); Potassium, Blood 3.3 mmol/L (3.5-5.5)
--- NOTE | 2021-10-26 06:32 | NUR ---
SHIFT SUMMARY PT AOX2 AT TIMES WITH INCREASED CONFUSION AND CONTINOUSLY PULLING OFF TELE MONITOR. PT. YELLS OUT AND STILL SELF CONVERSING, EASY TO REDIRECT AT TIMES. PT HAS BED ALARM IN PLACE AND STILL ATTEMPTS TO EXIT BED WITH AN UNSTEADY GAIT. PT HAS NEW ORDER IN PLACE AND MEDICATED PER EMAR THIS SHIFT. PT CURRENTLY BACK IN BED CALM AFTER PRN ATIVAN GIVEN. THIS NURSE WILL CONTINUE TO MONITOR UNTIL REPORT IS GIVEN.
--- NOTE | 2021-10-26 09:37 | NUR ---
SPOKE TO DR LIMA ON MORNING ROUNDS PT RECIEVED IV ATIVAN AT 0630. PT VERY LETHARGIC THIS MORNING. HELD PO NORCO THIS MORNING FOR SEDATION. PT ANSWERS QUESTIONS, HAS CONFUSION AT BASELINE.
--- NOTE | 2021-10-26 16:46 | NUR ---
SPOKE TO NURSE AT [place], WHERE THE PT LIVES. PER HER REPORT PT IS NOT CONFUSED AT BASELINE, SHE DOES HAVE MANIPULATIVE BEHAVIORS. HERE SHE HAS BEEN ORIENTED ONLY TO SELF, NOT TIME, SITUATION OR PLACE. PT IS ALSO IN THE MIDDLE OF A CORSE OF ANTIBIOTICS FOR LLE CELLULITIS. 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 RN ALSO REPORTED THE PT IS A DRINKER, THEY FOUND THREE EMPTY WINE BOTTLES BESIDE HER CHAIR AFTER SHE WAS SENT IN. WILL CALL DR LIMA AND UPDATE HIM WITH THIS INFORMATION. PHYSICAL THERAPY WAS UNABLE TO WORK WITH HER SHE WAS BARELY ABLE TO DO A PIVOT TRANSFER SAFELY. PER REPORT FROM RN THE PT USUALLY AMBULATES TO THE DINNING DIANA, ALTHOUGH SHE HAS BEEN DECLINING ALOT LATELY.
--- NOTE | 2021-10-26 17:23 | NUR ---
SHIFT SUMMARY- PT HAS BECOME A LITTLE MORE ALERT TODAY T/O THE SHIFT. THERAPY ATTEMPTED TO WORK WITH HER, GOT HER INTO A RECLINER WITH THE CHAIR ALARM FOR SAFETY, PT IS A HIGH FALL RISK, SHE SET OFF THE CHAIR ALARM WHILE TRYING TO GET OUT OF THE CHAIR.STAFF ASSISTED HER BACK TO BED. PT LATER WAS YELLING FOR HELP SHE WAS HANGING HALF IN AND HALF OUT OF THE BED. STAFF ASSISTED HER BACK INTO BED AND PROVIDED HER WITH A WARM BLANKET. HER CONCERN WAS THAT SHE WAS COLD. PT IS STARTING TO MAKE MORE SENSE WHEN SHE SPEAKS WELL. TELE DC'D TODAY AND NO IV ACCESS ORDERED.
--- NOTE | 2021-10-27 00:29 | NUR ---
PT REFUSED 0000 MEDICATION STATING, "NONE OF THIS MEDICATION IS HELPING ME SO I WILL NOT TAKE IT." THIS NURSE ATTEMPTED TO EDUCATE THE PT BUT THE PT IS TOO CONFUSED AND DELUSIONAL.
--- NOTE | 2021-10-27 05:17 | NUR ---
SHIFT SUMMARY PT AOX2 AT TIMES BUT VERY CONFUSED AT NIGHT NOT AWARE OF LOCATION/EVENT. PT TOOK OFF CLOTHES, BRIEFS AND BRACLET CONTINOUSLY THIS SHIFT. PT YELLS OUT RANDOM THINGS AND GETS UPSET WITH SELF. PT TOOK LONGER THAN NORMAL FOR HS MED PASS TO BE CONVINCED THE PILLS WERE NOT POISON THEN FINALLY TOOK MEDS. PT REFUSED 0000 MEDS AND CURRENTLY REFUSED 0600 MEDS STATING, "THOSE DON'T LOOK SAFE TO TAKE, NO THANK YOU." THIS NURSE ATTEMPTED THREE TIMES BUT WAS NOT SUCCESSFUL AND THE 0600 THE PT JUST STATED, "DON'T EVEN THINK ABOUT BRINGING THAT CRAP YOU CALL MEDICINE IN HERE AGAIN!" PT CURRENTLY NAKED AGAIN IN BED BUT DID LEAVE ON THE BRIEF SO FAR. PT CONTENT AND YELLS OUT STILL BUT NOT OFTEN. WILL CONTINUE TO MONITOR UNTIL REPORT IS GIVEN.
[2021-10-27 06:32] LABS: Bun/Creatinine Ratio 58.8 (12.0-20.0); Calcium, Blood 9.2 mg/dL (8.5-10.1); Creatinine, Blood 0.99 mg/dL (0.40-1.00); Potassium, Blood 3.9 mmol/L (3.5-5.5)
--- NOTE | 2021-10-27 18:07 | NUR ---
PATIENT VERY RESTLESS THIS SHIFT AND CONTINUES TO BE CONFUSED. REPORTS "ALL OVER" PAIN THAT IMPROVES WITH SCHEDULED NORCO/TYLENOL. A/O TO SELF AND AT TIMES SITUATION. PARANOID WITH CARE AND BELIEVES PEOPLE ARE TALKING ABOUT HER IN THE HALLS. STATED OVER AND OVER THAT NOBODY IS LISTENING TO HER AND DOES BECOME TEARFUL AT TIMES. UP WITH GAIT BELT AND 2 ASSIST TO BSC/CHAIR. REQUIRES MULTIPLE QUES AND NEEDS REMINDED TO KEEP HER EYES OPEN WHEN SHE TRANSFERS. APPETITE HAS IMPROVED SOMEWHAT THIS EVENING. MEDIUM HARD STOOL THIS AM, PATIENT IS ON STOOL SOFTNERS. VSS, PLACED ON 2LO2 DUE TO INTERMIITENT SOB AND SATS DROPPED LOW 86% WITH ACTIVITY. PT/OT WORKING WITH PATIENT. SCATTERED BRUSING AND SMALL ABRASIONS TO BLE. NO IV SITE ORDER.
--- NOTE | 2021-10-28 04:42 | NUR ---
PATIENT WAS ALERT AND ORIENTED X3 BUT BECAME A LITTLE DISORIENTED SOMETIMES. PATIENTS VITAL SIGNS WHERE STABLE AND NO ACUTE CHANGES. PATIENT ATTEMPTED TO USE THE BEDSIDE COMMODE TO HAVE A BOWEL MOVEMENT BUT WAS NOT SUCCESSFUL. CALL LIGHT PLACED WITHIN REACH AND BED PUT TO THE LOWEST POSITION.
[2021-10-28 05:41] LABS: Hematocrit 38.5 % (33.0-51.0); Mean Corpuscular HGB 26.5 pg (26.0-34.0); Mean Corpuscular HGB Conc 31.2 g/dL (31.5-36.5); Mean Corpuscular Volume 85 fL (80-100); Mean Platelet Volume 10.5 fL (9.1-12.4); Platelet Count 302 K/mm3 (150-400); RDW Coefficient Variation 14.7 % (11.7-14.2); RDW Standard Deviation 45.6 fL (35.1-46.3); Red Blood Cell Count 4.52 M/mm3 (3.80-5.20); White Blood Cell Count 7.75 K/mm3 (4.00-11.30)
[2021-10-28 06:13] LABS: Calcium, Blood 8.8 mg/dL (8.5-10.1); Creatinine, Blood 1.15 mg/dL (0.40-1.00); Potassium, Blood 3.5 mmol/L (3.5-5.5)
--- NOTE | 2021-10-28 16:25 | NUR ---
PATIENT A/OX2 AND LESS QUES NEEDED TODAY FOR TRANSFERS. PATIENT REMAINS A 1-2 ASSIST WITH FWW AND GB. ENEMA AND SUPPOSITORY GIVEN THIS AM FOR CONSTIPATION AND SHE WAS ABLE TO HAVE A BM AND IS FEELING MUCH BETTER AFTER THIS. WORKED WITH OT THIS AFTERNOON. APPETITE REMAINS POOR, ENCOURAGING SUPPLEMENTS. ANXIOUS AT TIMES AND EXPRESSED FEELING VERY DEPRESSED ABOUT HER LIFE AND HER SITUTATION, SHE WAS NOT REALLY ABLE TO ELABORATE ON THIS. FALL PRECAUTIONS IN PLACE. USING CALL LIGHT APPRORIATELY FOR ASSISTANCE.
[2021-10-28] MEDS ORDERED: GABA300 PO (19:21)
[2021-10-28] MEDS ORDERED: BUME2 PO (19:21)
[2021-10-28] MEDS ORDERED: FLOVENT HFA12 GM INH (19:23)
[2021-10-28] MEDS ORDERED: CLOP75 PO (19:23)
[2021-10-28] MEDS ORDERED: ZYRTEC10 M2 PO (19:24)
[2021-10-28] MEDS ORDERED: MITIGARE0.6 M1 PO (19:24)
[2021-10-28] MEDS ORDERED: CALC.25 PO (19:25)
[2021-10-28] MEDS ORDERED: NEBI5 PO (19:25)
[2021-10-28] MEDS ORDERED: AMIT50 PO (19:25)
[2021-10-28] MEDS ORDERED: METO5 PO (19:25)
[2021-10-28] MEDS ORDERED: SPIR25 PO (19:26)
[2021-10-28] MEDS ORDERED: STIOLTO RESPIMAT4 G1 INH (19:27)
[2021-10-28] MEDS ORDERED: PRAM.5 PO (19:27)
[2021-10-28] MEDS ORDERED: MONT10T PO (19:28)
[2021-10-28] MEDS ORDERED: PANT40 PO (19:28)
[2021-10-28] MEDS ORDERED: Fiber625 MG PO (19:30)
[2021-10-28] MEDS ORDERED: Ventolin5 MG/1 ML NEB (19:30)
[2021-10-28] MEDS ORDERED: Voltaren100 GM TOP (19:30)
[2021-10-28] MEDS ORDERED: AKWA Tears15 ML BOTHEYES (19:30)
[2021-10-28] MEDS ORDERED: BISA10S PR (19:31)
[2021-10-28] MEDS ORDERED: NYSTRIT TOP (19:31)
[2021-10-28] MEDS ORDERED: BENZ100A PO (19:31)
[2021-10-28] MEDS ORDERED: ALBU90OI INH (19:32)
[2021-10-28] MEDS ORDERED: HYDROCODONE-AC1 EAC9 PO (19:32)
[2021-10-28] MEDS ORDERED: ASPIR 8181 M1 PO (19:32)
[2021-10-28] MEDS ORDERED: VITAMIN D31000 UNI1 PO (19:34)
[2021-10-28] MEDS ORDERED: POLYETHYLENE G500 G1 PO (19:34)
[2021-10-28] MEDS ORDERED: TIZANIDINE HCL2 M1 PO (19:34)
[2021-10-28] MEDS ORDERED: Tylenol325 MG PO (19:34)
[2021-10-28] MEDS ORDERED: Colace100 MG PO (19:34)
[2021-10-28] MEDS ORDERED: SIME80CH PO (19:35)
[2021-10-28] MEDS ORDERED: PROBIOTIC1 EA13 PO (19:35)
[2021-10-28] MEDS ORDERED: DULCOLAX400 MG/51 PO (19:36)
[2021-10-28] MEDS ORDERED: ONDA4 PO (19:36)
[2021-10-28] MEDS ORDERED: ZEBUTAL 50-3251 EAC1 PO (19:36)
[2021-10-28] MEDS ORDERED: MUPIROCIN22 G6 TOP (19:37)
--- NOTE | 2021-10-29 04:30 | NUR ---
PATIENT WAS ALERT AND ORIENTED X2, PATIENT HAD PERIODS OF CONFUSION. PATIENT HAD STABLE VITAL SIGNS, NO ACUTE CHANGE. PATIENT COMPLAINED OF HAVING A HEADACHE AND WAS GIVEN SCHEDULED NORCO WHICH HELPED WITH THE PAIN. PATIENT REFUSED SCHEDULED TESSALON . CALL LIGHT WITHIN REACH AND BED DOWN TO THE LOWEST POSITION.
[2021-10-29 05:09] LABS: BASOPHILS ABSOLUTE AUTO 0.03 K/mm3 (0.00-0.23); BASOPHILS PERCENT AUTO 0 % (0-2); EOSINOPHILS ABSOLUTE AUTO 0.31 K/mm3 (0.00-0.68); EOSINOPHILS PERCENT AUTO 4 % (0-6); Hemoglobin 12.2 g/dL (11.5-16.0); IMMATURE GRAN ABSOLUTE AUTO 0.08 K/mm3 (0.00-0.10); IMMATURE GRAN PERCENT AUTO 1 % (0-1); LYMPHOCYTES ABSOLUTE AUTO 0.95 K/mm3 (0.84-5.20); LYMPHOCYTES PERCENT AUTO 12 % (21-46); MONOCYTES ABSOLUTE AUTO 1.32 K/mm3 (0.16-1.47); MONOCYTES PERCENT AUTO 16 % (4-13); Mean Corpuscular HGB 26.1 pg (26.0-34.0); Mean Corpuscular HGB Conc 30.5 g/dL (31.5-36.5); Mean Corpuscular Volume 86 fL (80-100); Mean Platelet Volume 10.2 fL (9.1-12.4); NEUTROPHILS ABSOLUTE AUTO 5.49 K/mm3 (1.96-9.15); NEUTROPHILS PERCENT AUTO 67 % (41-73); Platelet Count 295 K/mm3 (150-400); RDW Standard Deviation 46.7 fL (35.1-46.3); Red Blood Cell Count 4.68 M/mm3 (3.80-5.20); White Blood Cell Count 8.18 K/mm3 (4.00-11.30)
[2021-10-29 06:21] LABS: Bun/Creatinine Ratio 50.5 (12.0-20.0); Creatinine, Blood 1.09 mg/dL (0.40-1.00); Potassium, Blood 3.2 mmol/L (3.5-5.5)
--- NOTE | 2021-10-29 12:38 | NUR ---
Spirit care visit conducted. Patient is sitting on a chair and alert. Patient immediately tells me about the personal struggles she is having and the spiritual distress she is experiencing. I explore patient's belief system, conduct a life review and explore sources of meaning and purpose. 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 I encourage self-care, reinforce helpful attitudes and practices and provide therapeutic listening, pastoral mortgage counselor and prayer. Patient responds well and shows signs of an elevated mood and a fresh perspective on life, illness and her value as a person. I will continue to remain available to patient and family.
--- NOTE | 2021-10-29 17:10 | NUR ---
NO ACUTE CHANGES THIS SHIFT. PATIENT AWAITING SNF PLACEMENT. WORKING WITH PT/OT. CONTINUES TO REQUIRE 2 ASSIST FOR TRANSFERS AND MULTIPLE QUES. PATIENT VERY DEPRESSED AND TEARFUL AT TIMES, ANTIDEPRESSANT STARTED TODAY. VSS, ON 2LO2. SOB WITH EXERTION. FALL PRECAUTIONS IN PLACE. PATIENT USING CALL LIGHT APPROPRIATELY FOR ASSISTANCE. NO IV SITE. TAKING PILLS WHOLE WITH APPLESAUCE.
--- NOTE | 2021-10-30 04:21 | NUR ---
PATIENT WAS ALERT AND ORIENTED X3 BUT BECOME CONFUSED SOME TIMES. PATIENT EXPRESSED BEING SAD ABOUT HER LATE DAUGHTER. STABLE VITAL SIGNS, NO ACUTE CHANGES. PATIENT COMPLAINED OF PAIN EARLIER IN THE SHIFT BUT WAS TREATED WITH SCHEDULED NORCO. CALL LIGHT WITHIN REACH AND BED DOWN TO THE LOWEST POSITION.
[2021-10-30 06:01] LABS: Bun/Creatinine Ratio 38.7 (12.0-20.0); Calcium, Blood 9.2 mg/dL (8.5-10.1); Creatinine, Blood 1.06 mg/dL (0.40-1.00); Potassium, Blood 3.8 mmol/L (3.5-5.5)
--- NOTE | 2021-10-30 12:01 | NUR ---
Spiritual care visit conducted. Patient is distraught and admittedly angry. We spend quite some time working through her frustrations and fears. Patient tells personal stories of inner pain and expresses her deep concerns about not being heard or valued in the decision making process. I listen empathically, hear confession and provide gentle cruise counselor, spiritual guidance and prayer. Patient shows signs of clear change in demeanor toward the positive and appears to find a place of inner peace. Patient expresses gratitude for the input and direction. I will continue to assist patient as she struggles with the confusion and insecurity that her medical issues exacerbate.
--- NOTE | 2021-10-30 17:51 | NUR ---
SHIFT SUMMARY- PT WORKED WITH PT AND OT TODAY. PT WAS UP TO THE BSC 2PA (ONLY FOR ASSISTANCE WITH THE ATTENDS) FREQUENTLY TODAY. OFTEN SHE DID NOT VOID AND WANTED TO GO BACK TO BED. ONCE BACK TO BED AND IN THE RIGHT POSITION WITHIN 5 MINUTES SHE WOULD CALL STAFF BACK AND URGENTLY NEED TO GET UP TO USE THE COMODE. THE SECOND TIME SHE WOULD VOID, OR ALREADY HAVE WET ATTENDS. PT ALERT AND ORIENTED X 2-3. SOMETIMES SHE IS CONFUSED AND OTHERS, WITH SOME CUES SHE IS MORE ALERT. PT C/O PAIN THIS EVENING IN HER LEGS WILL MEDICATE WITH PRN NORCO SHORTLY. PT HAS BEEN ON ROOM AIR T/O THE SHIFT WITH NO S&S OF DISTRESS, SATS HAVE MAINTAINED IN THE MID 90"S ON RA. PT IN BED AT THIS TIME, CALL LIGHT IN REACH NO S&S OF DISTRESS, PT DECLINED TO EAT DINNER THIS EVENING. WILL CTM AND PASS ON TO NIGHT RN IN BEDSIDE REPORT.
--- NOTE | 2021-10-31 05:57 | NUR ---
PATIENT WAS ALERT AND ORIENTED X3, STABLE VITAL SIGNS, NO ACUTE CHANGES, 2LITERS OF O2, PATIENT DENIES ANY PAIN. PATIENT SLEPT THROUGH THE NIGHT. CALL LIGHT WITH IN REACH, BED DOWN TO THE LOWEST POSITION.
--- NOTE | 2021-10-31 19:25 | NUR ---
PT AAOX 2, ABLE TO MAKE NEEDS KNOWN. COMPLIANT WITH MEDICATION REGIMEN. ASSISTANCE OFFERED WITH ADL'S, TOLERATED WELL. PT OOB IN CHAIR AT BEDSIDE AT TIMES DURING THIS SHIFT. NO COMPLAINTS VOICED. CALL LIGHT IN REACH.
--- NOTE | 2021-11-01 05:05 | NUR ---
PROCUREMENT INTERN SUMMARY PATIENT HAD A FAIR SHIFT. VITALS WERE STABLE. NO COMPLAINTS OVERNIGHT. WILL CONTINUE TO MONITOR.
--- NOTE | 2021-11-01 18:05 | NUR ---
PT AAOX 2 WITH SOME CONFUSION AT TIMES. ABLE TO MAKE NEEDS KNOWN, COMPLIANT WITH MEDICATION REGIMEN. ASSIST TO BSC,SAFETY MANTAINTED. CALL LIGHT IN REACH. BED IN LOWEST POSITION.
--- NOTE | 2021-11-02 03:44 | NUR ---
RN BURN SUMMARY PATIENT HAD A FAIR SHIFT. HER VITALS WERE STABLE. SHE DID NOT LODGE ANY COMPLAINTS OVERNIGHT. WILL CONTINUE TO MONITOR HER.
--- NOTE | 2021-11-02 16:47 | NUR ---
SHIFT SUMMARY PT A&0X2, OCC CONFUSION, VSS/RA, JULIO PO/MEDS WHOLE, AMB W/1 PP MOD ASSIST/FWW/GB TO BSC/CHAIR-UP TO CHAIR ALL T/O SHIFT, VOIDING WELL/BM TODAY. WILL REPORT TO ONCOMING NOC RN.
--- NOTE | 2021-11-03 03:42 | NUR ---
VICE PRESIDENT CONSULTING SERVICES SUMMARY PATIENT HAD A FAIR SHIFT. VITALS WERE CHECKED AND DOCUMENTED. HER V/S WERE STABLE. SHE LODGED NIL FRESH COMPLAINT.WILL CONTINUE TO MONITOR HER.
[2021-11-03] MEDS ORDERED: CARV3.125 PO (08:51)
[2021-11-03] MEDS ORDERED: FURO20 PO (08:54)
[2021-11-03] MEDS ORDERED: POTA10T PO (08:54)
[2021-11-03 11:48] LABS: Influenza A, PCR NEGATIVE (NEGATIVE); Influenza B, PCR NEGATIVE (NEGATIVE); Resp Syncytial Virus, PCR NEGATIVE (NEGATIVE); SARS-Cov-2 (COVID-19) PCR, MMC NEGATIVE (NEGATIVE)
== END 2021-11-03 12:59 | DRG 640 ==
LOC: ER 09:27 → MEDS 21:58
PROVIDERS: Emergency Medicine; Internal Medicine; ADMIT Internal Medicine
DX: E86.0 Dehydration (principal); G92.8 Other toxic encephalopathy; J96.21 Acute and chronic respiratory failure with hypoxia; N17.9 Acute kidney failure, unspecified; I13.0 Hypertensive heart and chronic kidney disease with heart failure and stage 1 through stage 4 chronic kidney disease, or unspecified chronic kidney disease; I50.42 Chronic combined systolic (congestive) and diastolic (congestive) heart failure; F33.9 Major depressive disorder, recurrent, unspecified; I48.20 Chronic atrial fibrillation, unspecified; E87.1 Hypo-osmolality and hyponatremia; Z66 Do not resuscitate; Z20.822 Contact with and (suspected) exposure to COVID-19; R29.6 Repeated falls; D63.1 Anemia in chronic kidney disease; J45.909 Unspecified asthma, uncomplicated; G89.4 Chronic pain syndrome; G25.81 Restless legs syndrome; N18.30 Chronic kidney disease, stage 3 unspecified; E87.6 Hypokalemia; M10.9 Gout, unspecified; Z96.643 Presence of artificial hip joint, bilateral; Z95.810 Presence of automatic (implantable) cardiac defibrillator; Z98.890 Other specified postprocedural states; Z91.040 Latex allergy status; Z88.8 Allergy status to other drugs, medicaments and biological substances; Z91.048 Other nonmedicinal substance allergy status; Z79.51 Long term (current) use of inhaled steroids; Z79.02 Long term (current) use of antithrombotics/antiplatelets; Z79.82 Long term (current) use of aspirin; Z79.899 Other long term (current) drug therapy
CPT/HCPCS: 0241U; 36415; 51701; 70450; 71045; 71100; 72125; 73502; 73562-LT; 73630; 80048; 80053; 80069; 81003; 83605; 83735; 83880; 84100; 84145; 84443; 84484; 84550; 85025; 85027; 85379; 90686; 93005; 93010; 93306; 94640; 94760; 94762; 96365; 96375; 97110; 97116; 97116-CQ; 97129; 97140; 97162; 97166; 97530; 97535; 99284-25; 99285-25; A9270; J0696; J1650; J2060; J3480; J7050

== ENCOUNTER → 2021-11-26 | Outpatient (CLI) | payer OTHER ==
[~2021-11-26] MED LIST changes: +AKWA Tears15 ML BOTHEYES; +ALBU90OI INH; +AMIT50 PO; +ASPIR 8181 M1 PO; +BUME2 PO; +CALC.25 PO; +CARV3.125 PO; +Colace100 MG PO; +DULCOLAX400 MG/51 PO; +FLOVENT HFA12 GM INH; +FURO20 PO; +Fiber625 MG PO; +GABA300 PO; +HYDROCODONE-AC1 EAC9 PO; +MITIGARE0.6 M1 PO; +MONT10T PO; +MUPIROCIN22 G6 TOP; +NYSTRIT TOP; +ONDA4 PO; +POLYETHYLENE G500 G1 PO; +PRAM.5 PO; +PROBIOTIC1 EA13 PO; +SIME80CH PO; +STIOLTO RESPIMAT4 G1 INH; +TIZANIDINE HCL2 M1 PO; +Tylenol325 MG PO; +VITAMIN D31000 UNI1 PO; +Ventolin5 MG/1 ML NEB; +ZEBUTAL 50-3251 EAC1 PO; +ZYRTEC10 M2 PO
[2021-11-26 14:14] LABS: Appearance, Urine Hazy (Clear); Bilirubin, Urine Neg (Neg); Blood, Urine Neg (Neg); Color, Urine Yellow (P-Yellow); Glucose Qualitative, Urine Neg (Neg); Ketones, Urine Neg (Neg); Leukocyte Esterase, Urine 3+ (Neg); Nitrite, Urine Neg (Neg); Protein, Urine 1+ (Neg); Urobilinogen, Urine NORM (Normal)
[2021-11-26 14:25] LABS: Bacteria Many /hpf; Red Blood Cells, Urine 0-2 /hpf (0-2); Squamous Epithelial Cells Mod /hpf (Few)
[2021-11-26 14:28] LABS: Hyaline Casts 0-2 /lpf (0-2)
== END | disposition home or self-care (01) ==
LOC: LAB SHORT 12:54
PROVIDERS: Internal Medicine Nephrology
DX: N39.0 Urinary tract infection, site not specified (principal)
CPT/HCPCS: 81001; 87077; 87086; 87186

== ENCOUNTER 2021-12-03 06:40 | Emergency (ER) | payer OTHER ==
[~2021-12-03] VITALS: Ht 177.8 cm; Wt 86.2 kg
== END 2021-12-03 08:35 | disposition home or self-care (01) ==
LOC: ER 06:40
DX: S60.221A Contusion of right hand, initial encounter (principal); W01.10XA Fall on same level from slipping, tripping and stumbling with subsequent striking against unspecified object, initial encounter; Z88.8 Allergy status to other drugs, medicaments and biological substances; Z91.040 Latex allergy status; Z91.048 Other nonmedicinal substance allergy status; Z79.899 Other long term (current) drug therapy; Z79.82 Long term (current) use of aspirin; I11.0 Hypertensive heart disease with heart failure; I48.91 Unspecified atrial fibrillation; I50.9 Heart failure, unspecified; J45.909 Unspecified asthma, uncomplicated; M19.90 Unspecified osteoarthritis, unspecified site; M10.9 Gout, unspecified
CPT/HCPCS: 73120; 99283-25; A9270

== ENCOUNTER 2021-12-09 01:45 | Emergency (ER) | payer OTHER ==
[~2021-12-09] VITALS: Ht 165.1 cm; Wt 86.2 kg
[2021-12-09 02:36] LABS: BASOPHILS ABSOLUTE AUTO 0.03 K/mm3 (0.00-0.23); BASOPHILS PERCENT AUTO 0 % (0-2); EOSINOPHILS ABSOLUTE AUTO 0.18 K/mm3 (0.00-0.68); EOSINOPHILS PERCENT AUTO 2 % (0-6); Hematocrit 35.1 % (33.0-51.0); Hemoglobin 10.8 g/dL (11.5-16.0); IMMATURE GRAN ABSOLUTE AUTO 0.04 K/mm3 (0.00-0.10); IMMATURE GRAN PERCENT AUTO 1 % (0-1); LYMPHOCYTES PERCENT AUTO 12 % (21-46); MONOCYTES ABSOLUTE AUTO 1.14 K/mm3 (0.16-1.47); MONOCYTES PERCENT AUTO 15 % (4-13); Mean Corpuscular HGB 26.7 pg (26.0-34.0); Mean Corpuscular HGB Conc 30.8 g/dL (31.5-36.5); Mean Corpuscular Volume 87 fL (80-100); NEUTROPHILS ABSOLUTE AUTO 5.33 K/mm3 (1.96-9.15); NEUTROPHILS PERCENT AUTO 70 % (41-73); Platelet Count 296 K/mm3 (150-400); RDW Coefficient Variation 17.4 % (11.7-14.2); RDW Standard Deviation 55.5 fL (35.1-46.3); Red Blood Cell Count 4.04 M/mm3 (3.80-5.20); White Blood Cell Count 7.62 K/mm3 (4.00-11.30)
[2021-12-09 02:48] LABS: Alanine Aminotransfer (ALT/SGP 31 U/L (12-78); Albumin, Blood 2.3 g/dL (3.4-5.0); Albumin/Globulin Ratio 0.6 (0.8-1.8); Alk Phos 63 U/L (50-136); Anion Gap 7 mmol/L (6-16); Aspartate Aminotrans (AST/SGOT 25 U/L (12-37); Bilirubin, Total 0.4 mg/dL (0.1-1.0); Blood Urea Nitrogen 11 mg/dL (8-24); Bun/Creatinine Ratio 14.6 (12.0-20.0); CO2, Blood 26 mmol/L (21-32); Calcium, Blood 8.2 mg/dL (8.5-10.1); Chloride, Blood 104 mmol/L (98-108); Creatinine, Blood 0.75 mg/dL (0.40-1.00); Globulin, Blood 3.9 g/dL (2.2-4.0); Glomerular Filtration Rate >60 (60-); Glucose, Blood 99 mg/dL (70-99); Sodium, Blood 137 mmol/L (136-145); Total Protein, Blood 6.2 g/dL (6.4-8.2)
[2021-12-09] MEDS ORDERED: SENNA LAXATIVE8.6 MG PO (02:50)
[2021-12-09] MEDS ORDERED: ONDA4ODT MM (03:01)
== END 2021-12-09 03:51 | disposition home or self-care (01) ==
LOC: ER 01:45
PROVIDERS: Emergency Medicine
DX: R11.2 Nausea with vomiting, unspecified (principal); R19.7 Diarrhea, unspecified; R05.9 Cough, unspecified; Z88.8 Allergy status to other drugs, medicaments and biological substances; Z91.040 Latex allergy status; Z91.048 Other nonmedicinal substance allergy status; Z79.899 Other long term (current) drug therapy; Z79.82 Long term (current) use of aspirin; I11.0 Hypertensive heart disease with heart failure; I48.91 Unspecified atrial fibrillation; I50.9 Heart failure, unspecified; J45.909 Unspecified asthma, uncomplicated; M19.90 Unspecified osteoarthritis, unspecified site; M10.9 Gout, unspecified; D63.8 Anemia in other chronic diseases classified elsewhere
CPT/HCPCS: 36415; 71045; 80053; 85025; 93005; 93010

== ENCOUNTER → 2021-12-18 | Outpatient (CLI) | payer OTHER ==
[~2021-12-18] MED LIST changes: +ONDA4ODT MM; +SENNA LAXATIVE8.6 MG PO
[2021-12-18 20:50] LABS: Appearance, Urine Cloudy (Clear); Bilirubin, Urine Neg (Neg); Blood, Urine 3+ (Neg); Glucose Qualitative, Urine Neg (Neg); Ketones, Urine Neg (Neg); Leukocyte Esterase, Urine 3+ (Neg); Nitrite, Urine Neg (Neg); Protein, Urine 2+ (Neg); Urobilinogen, Urine NORM (Normal)
[2021-12-18 20:59] LABS: Color, Urine Pale Yellow (P-Yellow)
[2021-12-18 21:01] LABS: Bacteria Many /hpf; Red Blood Cells, Urine 0-2 /hpf (0-2); Squamous Epithelial Cells Few /hpf (Few); White Blood Cells, Urine 50-100 /hpf (0-5)
== END ==
LOC: LAB SHORT 20:42
PROVIDERS: Family Medicine
DX: N39.0 Urinary tract infection, site not specified (principal)
CPT/HCPCS: 81001

== ENCOUNTER → 2022-01-21 | Outpatient (CLI) | payer OTHER ==
[~2022-01-21] MED LIST changes: +BUMETANIDE2 M6 PO; +BUPR150ER PO; +CLIN150 PO; +DICLOFENAC SOD100 GM TP; +FLUTICASONE-SA1 EAC9 INH; +MIRALAX1712 PO; +NYSTATIN15 GM TOP; +PREG25 PO
[2022-01-21 17:09] LABS: Appearance, Urine Clear (Clear); Bilirubin, Urine Neg (Neg); Blood, Urine Neg (Neg); Color, Urine Yellow (P-Yellow); Glucose Qualitative, Urine Neg (Neg); Ketones, Urine Neg (Neg); Leukocyte Esterase, Urine 1+ (Neg); Nitrite, Urine Neg (Neg); Protein, Urine Neg (Neg); Specific Gravity, Urine 1.015 (1.003-1.022); Urobilinogen, Urine NORM (Normal)
[2022-01-21 17:30] LABS: Bacteria Few /hpf; Squamous Epithelial Cells Few /hpf (Few); White Blood Cells, Urine 25-50 /hpf (0-5); Yeast/Fungi Urine Rare /hpf
== END | disposition home or self-care (01) ==
LOC: LAB 14:55 → LAB SHORT 14:55
PROVIDERS: Family Medicine
DX: N39.0 Urinary tract infection, site not specified (principal)
CPT/HCPCS: 81001; 87077; 87086; 87186

== ENCOUNTER 2022-01-22 08:34 | Emergency (ER) | payer OTHER ==
[~2022-01-22] VITALS: Ht 170.2 cm; Wt 80.3 kg
[~2022-01-22 08:34] MED LIST changes: -BUMETANIDE2 M6 PO; -BUPR150ER PO; -CLIN150 PO; -DICLOFENAC SOD100 GM TP; -FLUTICASONE-SA1 EAC9 INH; -MIRALAX1712 PO; -NYSTATIN15 GM TOP; -PREG25 PO
[2022-01-22 09:01] LABS: BASOPHILS ABSOLUTE AUTO 0.05 K/mm3 (0.00-0.23); BASOPHILS PERCENT AUTO 1 % (0-2); EOSINOPHILS ABSOLUTE AUTO 0.14 K/mm3 (0.00-0.68); EOSINOPHILS PERCENT AUTO 2 % (0-6); Hemoglobin 12.5 g/dL (11.5-16.0); IMMATURE GRAN ABSOLUTE AUTO 0.04 K/mm3 (0.00-0.10); IMMATURE GRAN PERCENT AUTO 1 % (0-1); LYMPHOCYTES ABSOLUTE AUTO 0.79 K/mm3 (0.84-5.20); LYMPHOCYTES PERCENT AUTO 12 % (21-46); MONOCYTES ABSOLUTE AUTO 1.29 K/mm3 (0.16-1.47); MONOCYTES PERCENT AUTO 19 % (4-13); Mean Corpuscular HGB 26.3 pg (26.0-34.0); Mean Corpuscular HGB Conc 29.8 g/dL (31.5-36.5); Mean Corpuscular Volume 88 fL (80-100); Mean Platelet Volume 9.5 fL (9.1-12.4); NEUTROPHILS ABSOLUTE AUTO 4.35 K/mm3 (1.96-9.15); NEUTROPHILS PERCENT AUTO 65 % (41-73); Platelet Count 262 K/mm3 (150-400); RDW Coefficient Variation 17.2 % (11.7-14.2); RDW Standard Deviation 56.1 fL (35.1-46.3); Red Blood Cell Count 4.75 M/mm3 (3.80-5.20); White Blood Cell Count 6.66 K/mm3 (4.00-11.30)
[2022-01-22 09:12] LABS: Source, Urine Foley catheter
[2022-01-22 09:17] LABS: Appearance, Urine Clear (Clear); Bilirubin, Urine Neg (Neg); Blood, Urine 1+ (Neg); Color, Urine Yellow (P-Yellow); Glucose Qualitative, Urine Neg (Neg); Ketones, Urine Neg (Neg); Leukocyte Esterase, Urine 2+ (Neg); Nitrite, Urine Neg (Neg); Protein, Urine Neg (Neg); Urobilinogen, Urine NORM (Normal)
[2022-01-22 09:23] LABS: Alanine Aminotransfer (ALT/SGP 74 U/L (12-78); Albumin, Blood 3.4 g/dL (3.4-5.0); Albumin/Globulin Ratio 0.8 (0.8-1.8); Alk Phos 77 U/L (50-136); Anion Gap 6 mmol/L (6-16); Aspartate Aminotrans (AST/SGOT 62 U/L (12-37); Bilirubin, Total 1.1 mg/dL (0.1-1.0); Blood Urea Nitrogen 25 mg/dL (8-24); Bun/Creatinine Ratio 26.2 (12.0-20.0); CO2, Blood 30 mmol/L (21-32); Calcium, Blood 8.7 mg/dL (8.5-10.1); Chloride, Blood 105 mmol/L (98-108); Creatinine, Blood 0.96 mg/dL (0.40-1.00); Ethanol (Alcohol), Blood, Med <3 mg/dL; Globulin, Blood 4.1 g/dL (2.2-4.0); Glomerular Filtration Rate 57 (60-); Glucose, Blood 100 mg/dL (70-99); Potassium, Blood 3.6 mmol/L (3.5-5.5); Sodium, Blood 141 mmol/L (136-145); Total Protein, Blood 7.5 g/dL (6.4-8.2)
[2022-01-22 09:25] LABS: Bacteria Many /hpf; Squamous Epithelial Cells Rare /hpf (Few)
[2022-01-22 09:27] LABS: U Amphetamine Screen Not Detected; U Methamphetamine Screen Not Detected
[2022-01-22 09:28] LABS: U Barbituate Screen Not Detected; U Benzodiazapine Screen Not Detected; U Buprenorphine Screen Not Detected; U Cannabinoids Screen Not Detected; U Cocaine Screen Not Detected; U Methadone Screen Not Detected; U Opiates Screen Not Detected; U Oxycodone Screen Not Detected; U Phencyclidine Screen Not Detected; U Propoxyphene Screen Not Detected
[2022-01-22] MEDS ORDERED: CEPH500 PO (10:57)
== END 2022-01-22 12:56 | disposition home or self-care (01) ==
LOC: ER 08:34
PROVIDERS: Emergency Medicine
DX: S81.812A Laceration without foreign body, left lower leg, initial encounter (principal); L03.116 Cellulitis of left lower limb; N39.0 Urinary tract infection, site not specified; J44.9 Chronic obstructive pulmonary disease, unspecified; I11.0 Hypertensive heart disease with heart failure; I50.9 Heart failure, unspecified; Z79.899 Other long term (current) drug therapy; X58.XXXA Exposure to other specified factors, initial encounter
CPT/HCPCS: 70450; 71045; 80053; 81001; 83605; 85025; 87077; 87086; 87186; 93005; 93010; 96372; 99285-25; G0480; J0696

== ENCOUNTER 2022-01-27 08:40 | Emergency (ER) | payer OTHER ==
[~2022-01-27] VITALS: Ht 172.7 cm; Wt 80.3 kg
[2022-01-27 10:03] LABS: BASOPHILS ABSOLUTE AUTO 0.03 K/mm3 (0.00-0.23); BASOPHILS PERCENT AUTO 0 % (0-2); EOSINOPHILS ABSOLUTE AUTO 0.22 K/mm3 (0.00-0.68); EOSINOPHILS PERCENT AUTO 3 % (0-6); Hematocrit 43.1 % (33.0-51.0); Hemoglobin 12.7 g/dL (11.5-16.0); IMMATURE GRAN ABSOLUTE AUTO 0.03 K/mm3 (0.00-0.10); IMMATURE GRAN PERCENT AUTO 0 % (0-1); LYMPHOCYTES ABSOLUTE AUTO 0.84 K/mm3 (0.84-5.20); LYMPHOCYTES PERCENT AUTO 10 % (21-46); MONOCYTES PERCENT AUTO 15 % (4-13); Mean Corpuscular HGB Conc 29.5 g/dL (31.5-36.5); Mean Corpuscular Volume 88 fL (80-100); Mean Platelet Volume 9.9 fL (9.1-12.4); NEUTROPHILS ABSOLUTE AUTO 5.76 K/mm3 (1.96-9.15); NEUTROPHILS PERCENT AUTO 71 % (41-73); Platelet Count 273 K/mm3 (150-400); RDW Standard Deviation 55.5 fL (35.1-46.3); Red Blood Cell Count 4.89 M/mm3 (3.80-5.20); White Blood Cell Count 8.08 K/mm3 (4.00-11.30)
[2022-01-27 10:22] LABS: Source, Urine Straight Cath
[2022-01-27 10:24] LABS: Alanine Aminotransfer (ALT/SGP 40 U/L (12-78); Albumin, Blood 3.1 g/dL (3.4-5.0); Albumin/Globulin Ratio 0.7 (0.8-1.8); Alk Phos 81 U/L (50-136); Anion Gap 5 mmol/L (6-16); Aspartate Aminotrans (AST/SGOT 26 U/L (12-37); Blood Urea Nitrogen 21 mg/dL (8-24); Bun/Creatinine Ratio 30.1 (12.0-20.0); CO2, Blood 36 mmol/L (21-32); Calcium, Blood 8.5 mg/dL (8.5-10.1); Chloride, Blood 101 mmol/L (98-108); Ethanol (Alcohol), Blood, Med <3 mg/dL; Globulin, Blood 4.3 g/dL (2.2-4.0); Glomerular Filtration Rate >60 (60-); Glucose, Blood 84 mg/dL (70-99); Sodium, Blood 142 mmol/L (136-145); Total Protein, Blood 7.4 g/dL (6.4-8.2)
[2022-01-27 10:43] LABS: Appearance, Urine Clear (Clear); Bilirubin, Urine Neg (Neg); Blood, Urine Neg (Neg); Color, Urine Yellow (P-Yellow); Glucose Qualitative, Urine Neg (Neg); Ketones, Urine Neg (Neg); Leukocyte Esterase, Urine Neg (Neg); Nitrite, Urine Neg (Neg); Protein, Urine Neg (Neg); Urobilinogen, Urine NORM (Normal)
[2022-01-27] MEDS ORDERED: BUMETANIDE2 M6 PO (10:54)
[2022-01-27] MEDS ORDERED: FLUTICASONE-SA1 EAC9 INH (10:55)
[2022-01-27] MEDS ORDERED: DICLOFENAC SOD100 GM TP (10:56)
[2022-01-27] MEDS ORDERED: FLOVENT HFA12 GM INH (10:57)
[2022-01-27] MEDS ORDERED: VITAMIN D31000 UNI1 PO (10:59)
== END 2022-01-27 14:12 | disposition home or self-care (01) ==
LOC: ER 08:40
PROVIDERS: Student in an Organized Health Care Education/Training Program
DX: G47.33 Obstructive sleep apnea (adult) (pediatric) (principal); R53.83 Other fatigue; I11.0 Hypertensive heart disease with heart failure; I50.9 Heart failure, unspecified; J44.9 Chronic obstructive pulmonary disease, unspecified; Z79.899 Other long term (current) drug therapy; Z91.040 Latex allergy status
CPT/HCPCS: 36415; 51701; 70450; 71045; 80053; 81003; 83880; 84484; 85025; 93005; 93010; 99285-25; A9270; G0480

== ENCOUNTER 2022-02-02 14:19 | Inpatient (IN) | payer OTHER ==
[~2022-02-02] VITALS: Ht 172.7 cm; Wt 75.3 kg
[~2022-02-02 14:19] MED LIST changes: +BUMETANIDE2 M6 PO; +DICLOFENAC SOD100 GM TP; +FLUTICASONE-SA1 EAC9 INH
[2022-02-02 15:43] LABS: BASOPHILS ABSOLUTE AUTO 0.03 K/mm3 (0.00-0.23); BASOPHILS PERCENT AUTO 0 % (0-2); EOSINOPHILS ABSOLUTE AUTO 0.14 K/mm3 (0.00-0.68); EOSINOPHILS PERCENT AUTO 1 % (0-6); Hematocrit 40.6 % (33.0-51.0); Hemoglobin 12.1 g/dL (11.5-16.0); IMMATURE GRAN ABSOLUTE AUTO 0.05 K/mm3 (0.00-0.10); IMMATURE GRAN PERCENT AUTO 1 % (0-1); LYMPHOCYTES ABSOLUTE AUTO 0.75 K/mm3 (0.84-5.20); LYMPHOCYTES PERCENT AUTO 7 % (21-46); MONOCYTES ABSOLUTE AUTO 2.02 K/mm3 (0.16-1.47); MONOCYTES PERCENT AUTO 18 % (4-13); Mean Corpuscular HGB 25.9 pg (26.0-34.0); Mean Corpuscular HGB Conc 29.8 g/dL (31.5-36.5); Mean Corpuscular Volume 87 fL (80-100); Mean Platelet Volume 9.3 fL (9.1-12.4); NEUTROPHILS ABSOLUTE AUTO 8.03 K/mm3 (1.96-9.15); NEUTROPHILS PERCENT AUTO 73 % (41-73); Platelet Count 256 K/mm3 (150-400); RDW Coefficient Variation 16.6 % (11.7-14.2); Red Blood Cell Count 4.67 M/mm3 (3.80-5.20); White Blood Cell Count 11.02 K/mm3 (4.00-11.30)
[2022-02-02 16:06] LABS: Alanine Aminotransfer (ALT/SGP 25 U/L (12-78); Albumin, Blood 2.6 g/dL (3.4-5.0); Albumin/Globulin Ratio 0.6 (0.8-1.8); Alk Phos 70 U/L (50-136); Anion Gap 8 mmol/L (6-16); Aspartate Aminotrans (AST/SGOT 21 U/L (12-37); Bilirubin, Total 1.4 mg/dL (0.1-1.0); Blood Urea Nitrogen 21 mg/dL (8-24); Bun/Creatinine Ratio 24.9 (12.0-20.0); CO2, Blood 30 mmol/L (21-32); Calcium, Blood 8.4 mg/dL (8.5-10.1); Chloride, Blood 103 mmol/L (98-108); Creatinine, Blood 0.84 mg/dL (0.40-1.00); Globulin, Blood 4.4 g/dL (2.2-4.0); Glomerular Filtration Rate >60 (60-); Glucose, Blood 95 mg/dL (70-99); Potassium, Blood 3.5 mmol/L (3.5-5.5); Sodium, Blood 141 mmol/L (136-145)
[2022-02-02 18:22] LABS: Anti-Xa UFH, PHA Monitoring <0.10 IU/mL; International Normalized Ratio 1.22; Prothrombin Time Results 12.6 Sec (9.7-11.5)
[2022-02-03 03:08] LABS: BASOPHILS ABSOLUTE AUTO 0.05 K/mm3 (0.00-0.23); BASOPHILS PERCENT AUTO 1 % (0-2); EOSINOPHILS ABSOLUTE AUTO 0.06 K/mm3 (0.00-0.68); EOSINOPHILS PERCENT AUTO 1 % (0-6); Hemoglobin 11.1 g/dL (11.5-16.0); IMMATURE GRAN ABSOLUTE AUTO 0.05 K/mm3 (0.00-0.10); IMMATURE GRAN PERCENT AUTO 1 % (0-1); LYMPHOCYTES ABSOLUTE AUTO 0.59 K/mm3 (0.84-5.20); LYMPHOCYTES PERCENT AUTO 6 % (21-46); MONOCYTES ABSOLUTE AUTO 1.69 K/mm3 (0.16-1.47); MONOCYTES PERCENT AUTO 16 % (4-13); Mean Corpuscular HGB 25.9 pg (26.0-34.0); Mean Corpuscular Volume 86 fL (80-100); Mean Platelet Volume 9.3 fL (9.1-12.4); NEUTROPHILS ABSOLUTE AUTO 8.04 K/mm3 (1.96-9.15); NEUTROPHILS PERCENT AUTO 77 % (41-73); Platelet Count 234 K/mm3 (150-400); RDW Coefficient Variation 16.4 % (11.7-14.2); RDW Standard Deviation 51.3 fL (35.1-46.3); Red Blood Cell Count 4.28 M/mm3 (3.80-5.20); White Blood Cell Count 10.48 K/mm3 (4.00-11.30)
--- NOTE | 2022-02-03 13:01 | NUR ---
Spiritual care visit conducted. Patient tells me about her medical history and the procedure that is planed for today. She talks about her struggles with juanita, character and gratitude in light of her medical issues. I address these issues one at a time and discuss ways that she might achieve her goals of improving in her thoughts and behaviors. She shares about the amazing support people she has in her life. A man named, Francisco, is the a davonte amputee and is an inspiration and strength to her. She also mentions about his example of juanita and gratitude in the midst of his challenges. I hear confession, encourage self-care and resistance of undue shame, and provide therapeutic listening, gentle peer counselor and prayer. Patient responds well and shows increased peace about herself, her future and her upcoming procedure.
--- NOTE | 2022-02-03 13:51 | NUR ---
PATIENT A AN O 4X. PATIENT CALLS APPROPRIATELY FOR HELP. PATIENT HAD SOME PAIN IN LOWER EXTREMITIES THAT IMPROVED WITH TYLENOL. PULSES IN LOWER EXTREMITIES NOT PALPABLE. LEFT HAND SWOLLEN FROM FALL AT HOME. PATIENT ON 2L NC. [facility] TILL 1600 CHECK. REPORT CALLED TO PCU NURSE AVIS DE LA FUENTE. AVIS NIGHT NOTIFIED OF DEPARTURE TO TELECOMMUNICATION LINES REPAIRER. NURSE HAS NO QUESTIONS AN BELONGING BROUGHT TO PATIENTS NEW ROOM.
--- NOTE | 2022-02-03 17:21 | NUR ---
SHIFT SUMMARY: PATIENT TO PCU 17 AT 1430, POST REVASC WITH ONE STENT. RIGHT GROIN SITE, WNL. PATIENT ALERT AND ORIENTED X4. PERRLA. NUMBNESS/TINGLING TO LOWER EXTREMITIES, IMPROVED. DENIES PAIN. LAYING FLAT AT THIS TIME, LOG ROLLING FOR BEDPAN. TELE SHOWING PACED RHYTHM WITH HR 80'S. DENIES CHEST PAIN/PRESSURE. LUNGS SOUNDING CLEAR/DIM IN BASES. ON 1-2L NASAL CANNULA POST REVASC. PATIENT STATES AT TIMES SHE WEARS 2L WHEN SLEEPING. RIGHT GROIN SITE WNL, SOFT AND NONTENDER. SCANT DRAINAGE UNDER CHG DRESSING THAT REMAINS UNCHANGED. EATING DINNER AT THIS TIME. FINGER FOOD ORDERED. DR. ARCHULETA IN TO SEE PATIENT. HEPARIN DISCONTINUED, AND WILL NEED TO FOLLOW UP OUTPATIENT WITH KATHE. DR. ACOSTA UPDATED. POST VITALS COMPLETED. WILL CONTINUE TO MONITOR. CALL LIGHT IN REACH.
[2022-02-04 03:52] LABS: BASOPHILS ABSOLUTE AUTO 0.04 K/mm3 (0.00-0.23); BASOPHILS PERCENT AUTO 1 % (0-2); EOSINOPHILS ABSOLUTE AUTO 0.08 K/mm3 (0.00-0.68); EOSINOPHILS PERCENT AUTO 1 % (0-6); Hemoglobin 10.4 g/dL (11.5-16.0); IMMATURE GRAN ABSOLUTE AUTO 0.03 K/mm3 (0.00-0.10); IMMATURE GRAN PERCENT AUTO 0 % (0-1); LYMPHOCYTES ABSOLUTE AUTO 0.48 K/mm3 (0.84-5.20); LYMPHOCYTES PERCENT AUTO 6 % (21-46); MONOCYTES ABSOLUTE AUTO 1.17 K/mm3 (0.16-1.47); MONOCYTES PERCENT AUTO 15 % (4-13); Mean Corpuscular HGB 26.1 pg (26.0-34.0); Mean Corpuscular HGB Conc 29.7 g/dL (31.5-36.5); Mean Corpuscular Volume 88 fL (80-100); Mean Platelet Volume 9.6 fL (9.1-12.4); NEUTROPHILS ABSOLUTE AUTO 5.88 K/mm3 (1.96-9.15); NEUTROPHILS PERCENT AUTO 77 % (41-73); Platelet Count 210 K/mm3 (150-400); RDW Coefficient Variation 16.2 % (11.7-14.2); RDW Standard Deviation 52.2 fL (35.1-46.3); Red Blood Cell Count 3.99 M/mm3 (3.80-5.20); White Blood Cell Count 7.68 K/mm3 (4.00-11.30)
[2022-02-04 04:11] LABS: Alanine Aminotransfer (ALT/SGP 11 U/L (12-78); Albumin, Blood 2.2 g/dL (3.4-5.0); Albumin/Globulin Ratio 0.5 (0.8-1.8); Alk Phos 71 U/L (50-136); Anion Gap 5 mmol/L (6-16); Aspartate Aminotrans (AST/SGOT 14 U/L (12-37); Bilirubin, Total 0.5 mg/dL (0.1-1.0); Blood Urea Nitrogen 29 mg/dL (8-24); CO2, Blood 31 mmol/L (21-32); Calcium, Blood 8.5 mg/dL (8.5-10.1); Chloride, Blood 102 mmol/L (98-108); Creatinine, Blood 0.88 mg/dL (0.40-1.00); Globulin, Blood 4.1 g/dL (2.2-4.0); Glomerular Filtration Rate >60 (60-); Glucose, Blood 101 mg/dL (70-99); Magnesium, Blood 2.1 mg/dL (1.6-2.4); Phosphorus, Blood 3.1 mg/dL (2.5-4.9); Potassium, Blood 3.3 mmol/L (3.5-5.5); Sodium, Blood 138 mmol/L (136-145); Total Protein, Blood 6.3 g/dL (6.4-8.2)
--- NOTE | 2022-02-04 14:31 | NUR ---
TRANSFER NOTE PT WAS MADE MEDICAL STATUS WITH NO TELE. PT A&Ox3 WITH EPISODES OF CONFUSION. AFTER WORKING WITH OT AND PHYSICAL THERAPY, PT WAS ABLE TO TRANSER TO THE BSC AND CHAIR WITH ONE PERSON ASSIST. RIGHT GROIN SITE WAS WNL. REPORT GIVEN TO MEDICAL FLOOR RN AND TRANSFERED AT 1420.
--- NOTE | 2022-02-04 14:40 | NUR ---
THIS RN AGREES W/ STUDENT CONTRACTING EXECUTIVE FOR THIS SHIFT.
--- NOTE | 2022-02-04 16:16 | NUR ---
SHIFT SUMMARY: PATIENT ARRIVED TO ROOM 333 AT 1430. ALERT AND ORIENTED X3-4, ABLE TO VERBALIZE NEEDS. HAS A PACEMAKER. NO SOB AT RA. HAS A DX OF PERIPHERAL VASCULAR DISEASE, POST REVASC WITH ONE STENT ON RIGHT LEG, DENIES NUMBNESS OR TINGLING TO BLE. HAS WOUND TO FEET. DENIES PAIN TO FEET AT THIS TIME. CONTINENT OF B/B ON BSC, NEEDS ASSIST X 2.
--- NOTE | 2022-02-04 18:29 | NUR ---
SHIFT SUMMARY: PATIENT ARRIVED TO ROOM 333 AT 1430. ALERT AND ORIENTED X3-4, ABLE TO VERBALIZE NEEDS. HAS A PACEMAKER. NO SOB AT RA. HAS A DX OF PERIPHERAL VASCULAR DISEASE, POST REVASC ON LEFT LEG, DENIES NUMBNESS O TINGLING TO BLE. HAS WOUND TO FEET. DENIES PAIN TO FEET AT THIS TIME. CONTINENT OF B/B ON BSC, NEEDS ASSIST X 2. PICC LINE TO SMITH INSERTED AND VERIFIED WITH A CX-RAY. PATIENT C/O PAIN TO FEET, TYLENOL ADMINITRATED AND EFFECTIVE.
[2022-02-04 20:26] LABS: Vancomycin, Trough 16.4 ug/mL (5.0-10.0)
[2022-02-05 05:28] LABS: BASOPHILS ABSOLUTE AUTO 0.04 K/mm3 (0.00-0.23); BASOPHILS PERCENT AUTO 1 % (0-2); EOSINOPHILS ABSOLUTE AUTO 0.12 K/mm3 (0.00-0.68); EOSINOPHILS PERCENT AUTO 2 % (0-6); Hematocrit 35.6 % (33.0-51.0); Hemoglobin 10.4 g/dL (11.5-16.0); IMMATURE GRAN ABSOLUTE AUTO 0.03 K/mm3 (0.00-0.10); IMMATURE GRAN PERCENT AUTO 0 % (0-1); LYMPHOCYTES PERCENT AUTO 7 % (21-46); MONOCYTES ABSOLUTE AUTO 1.11 K/mm3 (0.16-1.47); MONOCYTES PERCENT AUTO 15 % (4-13); Mean Corpuscular HGB 25.8 pg (26.0-34.0); Mean Corpuscular HGB Conc 29.2 g/dL (31.5-36.5); Mean Corpuscular Volume 88 fL (80-100); Mean Platelet Volume 9.7 fL (9.1-12.4); NEUTROPHILS ABSOLUTE AUTO 5.59 K/mm3 (1.96-9.15); NEUTROPHILS PERCENT AUTO 76 % (41-73); Platelet Count 221 K/mm3 (150-400); RDW Coefficient Variation 16.2 % (11.7-14.2); RDW Standard Deviation 52.4 fL (35.1-46.3); Red Blood Cell Count 4.03 M/mm3 (3.80-5.20); White Blood Cell Count 7.39 K/mm3 (4.00-11.30)
[2022-02-05 05:46] LABS: Anion Gap 9 mmol/L (6-16); Blood Urea Nitrogen 29 mg/dL (8-24); Bun/Creatinine Ratio 34.5 (12.0-20.0); CO2, Blood 28 mmol/L (21-32); Calcium, Blood 8.4 mg/dL (8.5-10.1); Chloride, Blood 103 mmol/L (98-108); Creatinine, Blood 0.84 mg/dL (0.40-1.00); Glomerular Filtration Rate >60 (60-); Glucose, Blood 88 mg/dL (70-99); Potassium, Blood 3.4 mmol/L (3.5-5.5); Sodium, Blood 140 mmol/L (136-145)
--- NOTE | 2022-02-05 17:41 | NUR ---
DAY SHIFT SUMMARY 76 YR OLD PT WITH PVD. WOUNDS BILATERALLY TO LOWER EXTREMETIES. SURGICAL INCISION TO LT HEEL, VASULAR WOUNDS TO BILATERAL LOWER EXTREMITIES. WOUND CARE PROVIDED AND WOUNDS DRESSED. PT IS A 2 ASSIST WITH AMBULATION TO BATHROOM. PT IS DISORIENTED AND CONFUSED AT TIMES. PER NURSE WITH IBARRA VILLIAGE DISORIENTED, CONFUSED, AND PARINOID AT TIMES IS PT BASELINE. PT IS ON 2L NC O2. CALL LIGHT IS WITHIN REACH OF PT AND SHE IS ABLE TO CALL APPROPRIATE. PT'S SON CAME IN FOR BEDSIDE VISIT.
--- NOTE | 2022-02-06 00:53 | NUR ---
NURSE NOTE: 0026 PAULINE HAMILTON NOTIFIED OF PATIENTS CONTINUED CONFUSION, DISORIENTED TO PLACE AND SITUATION. CONFUSION HAS CONTINUED AND PROGRESSED OVER THE LAST COUPLE DAYS, CONCERNS THAT PROGRESS NOTE DOES NOT MENTION CONFUSION. ENSURING MD IS AWARE. - PER MD WILL PASS ALONG TO DAY SHIFT, NO INTERVENTIONS AT THIS TIME. WILL CONTINUE TO MONITOR.
--- NOTE | 2022-02-06 04:07 | NUR ---
SHIFT SUMMARY: A/OX 2-3, PT PRESENSTS WITH OFF AND ON INCREASED CONFUSION THROUGHOUT THE NIGHT, MD NOTIFIED. NO PAIN REPORTED THROUGHOUT THE NIGHT. 2L O2 NASAL CANNULA BASELINE USE AT NIGHT. CONTINUED SHORTNESS OF BREATH AT REST, RESPIRATORY THERAPY TO ADMIN. INHALANT. 2 PERSON ASSIST TO THE BEDSIDE COMMODE DUE TO INCREASED WEAKNESS AND VERBAL CUES. BED ALARM ACTIVATED, BED IN LOW POSITION, CALL BROCK IN REACH, BELONGINGS IN REACH. AT TIMES PT ATTEMPTS TO GET OUT OF BED, FORGETTING LIMITATIONS.
[2022-02-06 05:30] LABS: BASOPHILS ABSOLUTE AUTO 0.04 K/mm3 (0.00-0.23); BASOPHILS PERCENT AUTO 1 % (0-2); EOSINOPHILS ABSOLUTE AUTO 0.17 K/mm3 (0.00-0.68); EOSINOPHILS PERCENT AUTO 3 % (0-6); Hematocrit 35.7 % (33.0-51.0); Hemoglobin 10.5 g/dL (11.5-16.0); IMMATURE GRAN ABSOLUTE AUTO 0.03 K/mm3 (0.00-0.10); IMMATURE GRAN PERCENT AUTO 1 % (0-1); LYMPHOCYTES ABSOLUTE AUTO 0.57 K/mm3 (0.84-5.20); LYMPHOCYTES PERCENT AUTO 10 % (21-46); MONOCYTES ABSOLUTE AUTO 0.87 K/mm3 (0.16-1.47); MONOCYTES PERCENT AUTO 15 % (4-13); Mean Corpuscular HGB 26.2 pg (26.0-34.0); Mean Corpuscular HGB Conc 29.4 g/dL (31.5-36.5); Mean Corpuscular Volume 89 fL (80-100); Mean Platelet Volume 9.7 fL (9.1-12.4); NEUTROPHILS ABSOLUTE AUTO 4.17 K/mm3 (1.96-9.15); NEUTROPHILS PERCENT AUTO 71 % (41-73); Platelet Count 215 K/mm3 (150-400); RDW Coefficient Variation 16.4 % (11.7-14.2); RDW Standard Deviation 53.4 fL (35.1-46.3); Red Blood Cell Count 4.01 M/mm3 (3.80-5.20); White Blood Cell Count 5.85 K/mm3 (4.00-11.30)
[2022-02-06 06:20] LABS: Albumin, Blood 2.2 g/dL (3.4-5.0); Anion Gap 6 mmol/L (6-16); Blood Urea Nitrogen 31 mg/dL (8-24); CO2, Blood 30 mmol/L (21-32); Calcium, Blood 8.6 mg/dL (8.5-10.1); Chloride, Blood 104 mmol/L (98-108); Creatinine, Blood 0.89 mg/dL (0.40-1.00); Glomerular Filtration Rate >60 (60-); Glucose, Blood 92 mg/dL (70-99); Magnesium, Blood 2.1 mg/dL (1.6-2.4); Phosphorus, Blood 3.8 mg/dL (2.5-4.9); Potassium, Blood 3.8 mmol/L (3.5-5.5); Sodium, Blood 140 mmol/L (136-145)
--- NOTE | 2022-02-06 08:00 | NUR ---
Pt laying in bed eating breakfast, was able to answer questions, and follow commands well, denies pain, states she's feeling better, slept well, lungs are clear in upper [place], dim in bases, resp even and unlabored, on 2 liters 02 via n/c, baseline is at night will remove and assess, pt has a pacer, hrr, faint edema noted to left le, pp found via doppler, left stronger than right, iv is picc line to watson, site is clear and patent, btx4, abd flat soft nontender, voids via bsc, briefs in place, skin has wounds to b/l le, dressing to left le, and dressings to heels, has access to right groin with occlusive dressing in place, maew, general weakness, aida, able to make needs known, call light in reach.
--- NOTE | 2022-02-06 17:23 | NUR ---
Attempted to give pt her 1700 coreg, she is very confused and angry states she doesn't recognize any one or the building, but gets angry when I attempt to assess how confused she is, states Im no dummy, but she states she's confused, demanding this nurse tell her the names of her children and her pcp, states her soninlaw works here, so she does know shes at the [facility], wont cooperate at this time. call light in reach.
--- NOTE | 2022-02-06 18:34 | NUR ---
pt up to a chair, did appologise for her previous behavior, but still some confusion. did change the dressing on her left leg, no further changes this shift. call light in reach.
[2022-02-06 20:36] LABS: Vancomycin, Trough 19.2 ug/mL (5.0-10.0)
--- NOTE | 2022-02-07 04:10 | NUR ---
SHIFT SUMMARY: TONIGHT PATIENT REMAINED A/O X3-4, DECREASED CONFUSION COMPARED TO PREVIOUS NIGHTS. PT RESTING COMFORTABLY IN BED WHEN ROUNDING. 2 PERSON ASSIST TO STAND AND PIVOT TO BEDSIDE COMMODE WITH WALKER. PT HAD LARGE BOWEL MOVEMENT THIS SHIFT. BED ALARM REMAINS ACTIVATED, BED IN LOW POSITION, CALL BROCK AND BELONGINGS IN REACH. 2 PERSON CONTINUED ASSIT TO REPOSITION.
[2022-02-07 06:18] LABS: BASOPHILS ABSOLUTE AUTO 0.04 K/mm3 (0.00-0.23); BASOPHILS PERCENT AUTO 1 % (0-2); EOSINOPHILS ABSOLUTE AUTO 0.13 K/mm3 (0.00-0.68); EOSINOPHILS PERCENT AUTO 2 % (0-6); Hematocrit 36.5 % (33.0-51.0); Hemoglobin 10.8 g/dL (11.5-16.0); IMMATURE GRAN ABSOLUTE AUTO 0.05 K/mm3 (0.00-0.10); IMMATURE GRAN PERCENT AUTO 1 % (0-1); LYMPHOCYTES PERCENT AUTO 9 % (21-46); MONOCYTES ABSOLUTE AUTO 0.91 K/mm3 (0.16-1.47); MONOCYTES PERCENT AUTO 14 % (4-13); Mean Corpuscular HGB 26.1 pg (26.0-34.0); Mean Corpuscular HGB Conc 29.6 g/dL (31.5-36.5); Mean Corpuscular Volume 88 fL (80-100); Mean Platelet Volume 9.6 fL (9.1-12.4); NEUTROPHILS ABSOLUTE AUTO 4.82 K/mm3 (1.96-9.15); NEUTROPHILS PERCENT AUTO 74 % (41-73); Platelet Count 231 K/mm3 (150-400); RDW Coefficient Variation 16.5 % (11.7-14.2); RDW Standard Deviation 52.5 fL (35.1-46.3); Red Blood Cell Count 4.14 M/mm3 (3.80-5.20); White Blood Cell Count 6.55 K/mm3 (4.00-11.30)
[2022-02-07 06:50] LABS: Albumin, Blood 2.4 g/dL (3.4-5.0); Anion Gap 4 mmol/L (6-16); Blood Urea Nitrogen 32 mg/dL (8-24); Bun/Creatinine Ratio 38.9 (12.0-20.0); CO2, Blood 31 mmol/L (21-32); Calcium, Blood 9.1 mg/dL (8.5-10.1); Chloride, Blood 101 mmol/L (98-108); Creatinine, Blood 0.82 mg/dL (0.40-1.00); Glomerular Filtration Rate >60 (60-); Glucose, Blood 81 mg/dL (70-99); Magnesium, Blood 2.1 mg/dL (1.6-2.4); Phosphorus, Blood 3.1 mg/dL (2.5-4.9); Potassium, Blood 4.2 mmol/L (3.5-5.5); Sodium, Blood 136 mmol/L (136-145)
--- NOTE | 2022-02-07 08:00 | NUR ---
pt a/ox3, with periods of confusion, had some mild hallucinating last night, cooperative with care, follows commands well, denies pain, states she slept well last night, is currently on 2 liters 02 via n/c, lungs are a bit course, some clears with cough, hrr, trace edema noted to b/l le, ppp found via doppler, left stronger than right, picc line to watson, site is clear and patent, btx4, abd flat soft nontender, voids without diff, skin has multiple wounds to b/l le, dressings in place, two person to transfer pt with gait belt, aida ruth, call light in reach.
--- NOTE | 2022-02-07 18:10 | NUR ---
pt is up in her chair, is mildly confused this evening but nothing like yesterday. she is cooperative with care, and took her meds tonight. dressing was changed on right heel today. no further changes. call light in reach.
[2022-02-08 06:42] LABS: BASOPHILS ABSOLUTE AUTO 0.05 K/mm3 (0.00-0.23); BASOPHILS PERCENT AUTO 1 % (0-2); EOSINOPHILS ABSOLUTE AUTO 0.16 K/mm3 (0.00-0.68); EOSINOPHILS PERCENT AUTO 2 % (0-6); Hematocrit 35.2 % (33.0-51.0); Hemoglobin 10.4 g/dL (11.5-16.0); IMMATURE GRAN ABSOLUTE AUTO 0.08 K/mm3 (0.00-0.10); IMMATURE GRAN PERCENT AUTO 1 % (0-1); LYMPHOCYTES ABSOLUTE AUTO 0.79 K/mm3 (0.84-5.20); LYMPHOCYTES PERCENT AUTO 12 % (21-46); MONOCYTES ABSOLUTE AUTO 0.99 K/mm3 (0.16-1.47); MONOCYTES PERCENT AUTO 15 % (4-13); Mean Corpuscular HGB 25.9 pg (26.0-34.0); Mean Corpuscular HGB Conc 29.5 g/dL (31.5-36.5); Mean Corpuscular Volume 88 fL (80-100); NEUTROPHILS ABSOLUTE AUTO 4.56 K/mm3 (1.96-9.15); NEUTROPHILS PERCENT AUTO 69 % (41-73); Platelet Count 226 K/mm3 (150-400); RDW Coefficient Variation 16.3 % (11.7-14.2); RDW Standard Deviation 52.6 fL (35.1-46.3); Red Blood Cell Count 4.02 M/mm3 (3.80-5.20); White Blood Cell Count 6.63 K/mm3 (4.00-11.30)
[2022-02-08 06:55] LABS: Albumin, Blood 2.3 g/dL (3.4-5.0); Anion Gap 5 mmol/L (6-16); Blood Urea Nitrogen 42 mg/dL (8-24); Bun/Creatinine Ratio 47.5 (12.0-20.0); CO2, Blood 30 mmol/L (21-32); Calcium, Blood 9.4 mg/dL (8.5-10.1); Chloride, Blood 102 mmol/L (98-108); Creatinine, Blood 0.88 mg/dL (0.40-1.00); Glomerular Filtration Rate >60 (60-); Glucose, Blood 91 mg/dL (70-99); Magnesium, Blood 2.3 mg/dL (1.6-2.4); Phosphorus, Blood 4.2 mg/dL (2.5-4.9); Potassium, Blood 4.6 mmol/L (3.5-5.5); Sodium, Blood 137 mmol/L (136-145)
[2022-02-08 17:51] LABS: Source, Urine Foley catheter
--- NOTE | 2022-02-08 18:07 | NUR ---
SHIFT SUMMARY; PATIENT VERY CONFUSED DURING DAY. AO TO SELF AND PLACE. SHE IS NOTED TO PUT HER LEGS OVER SIDE OF BED AND SLIDE DOWN IN BED TO BE SIDEWAYS. WHEN ASKED WHAT SHE WAS DOING SHE STATED "I AM EXERCISING" WOUND DRESSING CLEANSE AND DRESSING CHANGE TO BILATERAL LOWER LEGS. CONSULT CALLED IN TO AT 1755 TODAY. HE WILL COME IN THE AM TOMORROW TO SEE THIS PATIENT. PATIENT DOES COMPLAIN OF LEG PAIN AND DISCOMFORT THIS EVENING. MEDICATED WITH ULTRAM AT 1730 FOR PAIN 06/16 BY MAP PLOTTER CHEIKH. PATIENT IS ALSO STRAIGHT CATHED FOR URINE SPECIMEN PER ORDER FOR POSSIBLE UTI/CONFUSION. PATIENT TOLERATED WELL NADN NOTED. WILL REMAIN AVAILABLE FOR THIS PATIENT FOR ANY WANTS OR NEEDS THEY COME UP PRIOR TO REPORT AND HAND OFF TO NOC SHIFT RN.
[2022-02-08 18:14] LABS: Appearance, Urine Clear (Clear); Bilirubin, Urine Neg (Neg); Blood, Urine Neg (Neg); Glucose Qualitative, Urine Neg (Neg); Ketones, Urine Neg (Neg); Leukocyte Esterase, Urine Neg (Neg); Nitrite, Urine Neg (Neg); Protein, Urine Neg (Neg); Urobilinogen, Urine NORM (Normal)
[2022-02-08 18:19] LABS: Color, Urine Pale Yellow (P-Yellow)
[2022-02-09 05:16] LABS: BASOPHILS ABSOLUTE AUTO 0.04 K/mm3 (0.00-0.23); BASOPHILS PERCENT AUTO 1 % (0-2); EOSINOPHILS ABSOLUTE AUTO 0.14 K/mm3 (0.00-0.68); EOSINOPHILS PERCENT AUTO 2 % (0-6); Hematocrit 33.3 % (33.0-51.0); Hemoglobin 9.7 g/dL (11.5-16.0); IMMATURE GRAN ABSOLUTE AUTO 0.11 K/mm3 (0.00-0.10); IMMATURE GRAN PERCENT AUTO 2 % (0-1); LYMPHOCYTES ABSOLUTE AUTO 0.72 K/mm3 (0.84-5.20); LYMPHOCYTES PERCENT AUTO 11 % (21-46); MONOCYTES ABSOLUTE AUTO 0.87 K/mm3 (0.16-1.47); MONOCYTES PERCENT AUTO 13 % (4-13); Mean Corpuscular HGB 25.9 pg (26.0-34.0); Mean Corpuscular HGB Conc 29.1 g/dL (31.5-36.5); Mean Corpuscular Volume 89 fL (80-100); Mean Platelet Volume 9.9 fL (9.1-12.4); NEUTROPHILS ABSOLUTE AUTO 4.73 K/mm3 (1.96-9.15); NEUTROPHILS PERCENT AUTO 72 % (41-73); Platelet Count 217 K/mm3 (150-400); RDW Coefficient Variation 16.6 % (11.7-14.2); RDW Standard Deviation 53.6 fL (35.1-46.3); Red Blood Cell Count 3.75 M/mm3 (3.80-5.20); White Blood Cell Count 6.61 K/mm3 (4.00-11.30)
[2022-02-09 05:49] LABS: Albumin, Blood 2.2 g/dL (3.4-5.0); Albumin/Globulin Ratio 0.6 (0.8-1.8); Alk Phos 105 U/L (50-136); Anion Gap 3 mmol/L (6-16); Aspartate Aminotrans (AST/SGOT 29 U/L (12-37); Bilirubin, Total 0.3 mg/dL (0.1-1.0); Blood Urea Nitrogen 42 mg/dL (8-24); Bun/Creatinine Ratio 45.6 (12.0-20.0); CO2, Blood 33 mmol/L (21-32); Chloride, Blood 103 mmol/L (98-108); Creatinine, Blood 0.92 mg/dL (0.40-1.00); Glomerular Filtration Rate 59 (60-); Glucose, Blood 87 mg/dL (70-99); Magnesium, Blood 2.3 mg/dL (1.6-2.4); Phosphorus, Blood 4.4 mg/dL (2.5-4.9); Potassium, Blood 4.9 mmol/L (3.5-5.5); Sodium, Blood 139 mmol/L (136-145); Total Protein, Blood 6.2 g/dL (6.4-8.2)
[2022-02-09 05:54] LABS: Alanine Aminotransfer (ALT/SGP <6 U/L (12-78)
--- NOTE | 2022-02-09 06:02 | NUR ---
76 year old PT with hx of PVD CAD with AFIB & pacemaker AICD continues with intermittant confusion & garbled speech. She talks rambling & discussed being [place] in [place]. She enjoys conversing & will call randomly to ask for conversation. She had revasc of bilat le where she has bilat le vasculat ulcers & wounds dried scabs with no redness or drainage. She is able to sit up in bedside chair & feed self. Appetite ggod. PT is incontinent & some sundowning behaviors include stripping & removing oxygen. ARLYN PT is not using CPAP. She does have urinary incont. UA was sent & no UTI per lab . SHe had required etensive assist to transfer from chair to bed. High fall risk, bed alarm & 3 side rails helpful. Medicated for pain x 2 with helpful effect.
[2022-02-09 08:56] LABS: Vancomycin, Trough 19.7 ug/mL (5.0-10.0)
--- NOTE | 2022-02-10 06:10 | NUR ---
PT continues confused at times able to carry on conversation other times PT rambles with rapid garbled rapid speech. Continues with antibiotic therapy after revasc lt le and continued wound care to vascular ulcers. Seen by POD. who orders in PT wound care consult. PT is not active in PT or OT. Continues able to feed self with good appetite & good fluid intake. PT incont. of large amts of urine multiple times in 24 hour period. Max assist for bed mobility toileting skin care fall precautions.Strips gown off often & repeatedly removes oxygen. Redressed & oxygen reapplied multiplle time during night.
[2022-02-10 06:20] LABS: BASOPHILS ABSOLUTE AUTO 0.04 K/mm3 (0.00-0.23); BASOPHILS PERCENT AUTO 1 % (0-2); EOSINOPHILS ABSOLUTE AUTO 0.17 K/mm3 (0.00-0.68); EOSINOPHILS PERCENT AUTO 3 % (0-6); Hematocrit 32.7 % (33.0-51.0); Hemoglobin 9.7 g/dL (11.5-16.0); IMMATURE GRAN ABSOLUTE AUTO 0.07 K/mm3 (0.00-0.10); IMMATURE GRAN PERCENT AUTO 1 % (0-1); LYMPHOCYTES ABSOLUTE AUTO 0.71 K/mm3 (0.84-5.20); LYMPHOCYTES PERCENT AUTO 11 % (21-46); MONOCYTES ABSOLUTE AUTO 0.85 K/mm3 (0.16-1.47); MONOCYTES PERCENT AUTO 14 % (4-13); Mean Corpuscular HGB 26.4 pg (26.0-34.0); Mean Corpuscular HGB Conc 29.7 g/dL (31.5-36.5); Mean Corpuscular Volume 89 fL (80-100); NEUTROPHILS ABSOLUTE AUTO 4.39 K/mm3 (1.96-9.15); NEUTROPHILS PERCENT AUTO 71 % (41-73); NRBC ABSOLUTE 0.02 K/mm3 (0.00-0.02); NRBC Auto 0.3 /100 WBC (0.0-0.2); Platelet Count 263 K/mm3 (150-400); RDW Coefficient Variation 16.6 % (11.7-14.2); RDW Standard Deviation 53.8 fL (35.1-46.3); Red Blood Cell Count 3.68 M/mm3 (3.80-5.20); White Blood Cell Count 6.23 K/mm3 (4.00-11.30)
[2022-02-10 06:49] LABS: Alanine Aminotransfer (ALT/SGP 7 U/L (12-78); Albumin, Blood 2.2 g/dL (3.4-5.0); Albumin/Globulin Ratio 0.5 (0.8-1.8); Alk Phos 89 U/L (50-136); Anion Gap 5 mmol/L (6-16); Aspartate Aminotrans (AST/SGOT 26 U/L (12-37); Bilirubin, Total 0.6 mg/dL (0.1-1.0); Blood Urea Nitrogen 35 mg/dL (8-24); Bun/Creatinine Ratio 40.1 (12.0-20.0); CO2, Blood 33 mmol/L (21-32); Calcium, Blood 9.1 mg/dL (8.5-10.1); Chloride, Blood 102 mmol/L (98-108); Creatinine, Blood 0.87 mg/dL (0.40-1.00); Globulin, Blood 4.1 g/dL (2.2-4.0); Glomerular Filtration Rate >60 (60-); Glucose, Blood 81 mg/dL (70-99); Potassium, Blood 4.6 mmol/L (3.5-5.5); Sodium, Blood 140 mmol/L (136-145); Total Protein, Blood 6.3 g/dL (6.4-8.2)
--- NOTE | 2022-02-10 15:51 | NUR ---
Spiritual care visit conducted. Patient is lying in bed and resting. She easily awakens to the sound of her name. She immediately complains about how her voice runs out after a few sentences, then if she pauses for a few minutes, it will return. Pt then talks at length about how lonely she is and how her family did not call or visit even over the weekend. Later in the conversation she tells me that her son, Lito, visited last Tuesday. There were other moments were she contradicted herself. Overall she is struggling emotionally and spiritually. I provide therapeutic listening, pastoral branch credit counselor and prayer. She responds well and gets a call from "her man" just befoare I leave. I will continue to remain available to patient and family.
--- NOTE | 2022-02-10 16:07 | NUR ---
WOUND CARE RECOMMENDATIONS; R HEEL, CLEANSE WITH SKINTEGRITY, RINSE NS, PAT DRY, APPLY CALCIUM ALGINATE TO WOUND BED, COVER WITH BORDERED FOAM HEEL. CHANGE EVERY OTHER DAY, SOILED OR DISLODGED. LLE MOISTURIZE DAILY PROTECT WITH ABD ROLLED GAUZE. L GREAT TOE; PAINT WITH BETADINE DAILY, KEEP DRY
--- NOTE | 2022-02-10 18:12 | NUR ---
SHIFT SUMMARY PT AWAKE AT START OF SHIFT, DURING SHIFT REPORT. PT SIDEWAYS IN BED, WITH LEGS HANGING OVER. PER SHIFT REPORT, PT CAN BE VERY BUSY IN BED, TOSSING AND TURNING. PT ABLE TO FEED HERSELF ALL MEALS. CONTINENT AND INCONTINENT OF BOWEL AND BLADDER. PT/OT IN TO TRY AND WORK WITH PT. DR MACARIO HERE THIS AM TO CK ON PT AND ASSESS BLE'S. WOUND CLINIC CALLED FOR UPDATE ON WOUND CARE ORDERS. AIR COMPRESSOR OPERATOR COMES UP AFTER 12:00. WOUNDS CLEANED AND DRG'S PLACED WITH NEW ORDERS FOR CARE. PT'S DAUGHTER HERE THIS EVENING TO VISIT WITH PT AND GET UPDATE ON CARE. PT CURRENTLY SITTING UP IN BED EATING DINNER. DENIES FURTHER NEEDS AT THIS TIME. CALL LT IN REACH. BED ALARM ON FOR SAFETY.
--- NOTE | 2022-02-11 06:44 | NUR ---
PM SHIFT SUMMARY PATIENT VERY RESTLESS DURING MOST OF SHIFT. ROLLS AROUND IN BED A LOT AND COULD NOT SEEM TO GET COMFORTABLE UNTIL TOWARD THE END OF SHIFT. HEEL DRESSING CHANGED TWICE DURING SHIFT DUE TO IT COMING OFF. WHEN PATIENT WAS QUESTIONED ABOUT PAIN, SHE SHOOK HER HEAD NO EACH TIME. SHE HAD NO COMPLAINTS DURING SHIFT.
[2022-02-11 09:07] LABS: Anion Gap 5 mmol/L (6-16); Blood Urea Nitrogen 40 mg/dL (8-24); Bun/Creatinine Ratio 46.2 (12.0-20.0); CO2, Blood 32 mmol/L (21-32); Calcium, Blood 9.1 mg/dL (8.5-10.1); Chloride, Blood 99 mmol/L (98-108); Creatinine, Blood 0.87 mg/dL (0.40-1.00); Glomerular Filtration Rate >60 (60-); Glucose, Blood 78 mg/dL (70-99); Sodium, Blood 136 mmol/L (136-145)
[2022-02-11 09:10] LABS: Vancomycin, Trough 22.5 ug/mL (5.0-10.0)
--- NOTE | 2022-02-11 16:58 | NUR ---
SHIFT SUMMARY PT AWAKE AGAIN AT START OF SHIFT, RESTLESS AND MOVING SIDEWAYS IN BED. PT IS MOSTLY INCONTINENT IN BED. PT UNABLE TO GET UP TO BSC, EVEN WITH 2P ASSIST AND GB. PT IS VERY WEAK AND UNABLE TO EVEN SIT UPRIGHT AT EOB W/O FALLING OVER. PER P/T, PT WAS ABLE TO STAND AND GET TO BSC LAST WEEK WHEN SHE CAME IN, BUT HAS DECLINED IN MOBILITY. PT WILL SOMETIMES CALL FOR BED BRONSON, BUT THEN WON'T VOID UNTIL AFTER IT IS REMOVED. FAMILY AND P/T BOTH CONCERNED THAT PT HAD POSSIBLY HAD A STROKE. DR MACARIO NOTIFIED AND CT OF HEAD ORDERED. CT NEG FOR STROKE. DR MACARIO IN TO SEE AND TALK WITH PT. PT'S SPEECH WAS MUCH CLEARER AND ACCURATE WHEN TALKING TO DR MACARIO, BUT EARLIER IN THE MORNING AND SOON THE DR LEFT, PT'S SPEECH WAS GARBLED. DAUGHTER CALLED FOR UPDATE ON PT STATUS; UPDATE GIVEN. PT BECOMES EXHAUSTED WITH TRYING TO EAT; DOES BETTER WITH BEING FED. SOFT BITE SIZE DIET ORDERED PT UNABLE TO HOLD THINGS IN HER HAND OR USE HER FINGERS VERY WELL AT ALL. NO C/O PAIN. DENIED FURTHER NEEDS. CALL LT IN REACH. BED ALARM ON FOR SAFETY.
--- NOTE | 2022-02-11 19:16 | NUR ---
DRG'S CHANGED TO R HEEL AND TO LLE AGAIN, PER ORDERS. PT MOVES AROUND IN BED REMOVING DRSG'S SOONER THAN NEEDED. TOLERATED WELL. PLEASANT AND CO-OP WITH CARE.
[2022-02-12 05:18] LABS: BASOPHILS ABSOLUTE AUTO 0.04 K/mm3 (0.00-0.23); BASOPHILS PERCENT AUTO 1 % (0-2); EOSINOPHILS ABSOLUTE AUTO 0.17 K/mm3 (0.00-0.68); EOSINOPHILS PERCENT AUTO 3 % (0-6); Hematocrit 33.7 % (33.0-51.0); Hemoglobin 10.1 g/dL (11.5-16.0); IMMATURE GRAN PERCENT AUTO 2 % (0-1); LYMPHOCYTES ABSOLUTE AUTO 0.77 K/mm3 (0.84-5.20); LYMPHOCYTES PERCENT AUTO 12 % (21-46); MONOCYTES ABSOLUTE AUTO 0.84 K/mm3 (0.16-1.47); MONOCYTES PERCENT AUTO 13 % (4-13); Mean Corpuscular HGB 26.2 pg (26.0-34.0); Mean Corpuscular Volume 88 fL (80-100); Mean Platelet Volume 10.1 fL (9.1-12.4); NEUTROPHILS ABSOLUTE AUTO 4.38 K/mm3 (1.96-9.15); NEUTROPHILS PERCENT AUTO 70 % (41-73); NRBC ABSOLUTE 0.03 K/mm3 (0.00-0.02); NRBC Auto 0.5 /100 WBC (0.0-0.2); Platelet Count 254 K/mm3 (150-400); RDW Coefficient Variation 16.4 % (11.7-14.2); RDW Standard Deviation 52.3 fL (35.1-46.3); Red Blood Cell Count 3.85 M/mm3 (3.80-5.20)
--- NOTE | 2022-02-12 06:20 | NUR ---
PM SHIFT SUMMARY PATIENT SEEMED A BIT MORE ALERT TODAY AT START OF SHIFT. SHE WAS UP EATING IN BED WHEN I ARRIVE. HOWEVER, THE SHIFT WENT ON, PATIENT BECAME MORE ELTHARGIC TO WHERE ANY SPEECH WAS DIFFICULT TO UNDERSTAND. PER AM REPORT, SHE IS BARELY ABLE TO STAND TO GET TO THE BEDSIDE COMMODE. SHE HAD A CT HEAD DONE TO R/O A STROKE, WHICH CAME BACK NEGATIVE. HER BLOOD CULTURES WERE NEGATIVE AT DAY 3. SHE HAD 1 SMALL BOWEL MOVEMENT, WELL A FEW INCONTINENT URINE. HER WOUND ON LLE WAS CHANGED BY AM SHIFT, WHICH WILL NOT BE DUE TO CHANGE AGAIN UNTIL 02/13/22. SHE STILL HAS AN ECHO PENDING THAT NEEDS TO BE COMPLETED. EVENTUAL PLAN IS TO GET HER TO SNF FOR MORE ANTIBIOTIC THERAPY.
[2022-02-12 07:24] LABS: Alanine Aminotransfer (ALT/SGP 10 U/L (12-78); Albumin, Blood 2.4 g/dL (3.4-5.0); Albumin/Globulin Ratio 0.6 (0.8-1.8); Alk Phos 88 U/L (50-136); Anion Gap 3 mmol/L (6-16); Aspartate Aminotrans (AST/SGOT 23 U/L (12-37); Bilirubin, Total 0.5 mg/dL (0.1-1.0); Blood Urea Nitrogen 39 mg/dL (8-24); Bun/Creatinine Ratio 40.5 (12.0-20.0); CO2, Blood 34 mmol/L (21-32); Chloride, Blood 97 mmol/L (98-108); Creatinine, Blood 0.96 mg/dL (0.40-1.00); Glomerular Filtration Rate 56 (60-); Glucose, Blood 78 mg/dL (70-99); Potassium, Blood 4.7 mmol/L (3.5-5.5); Sodium, Blood 134 mmol/L (136-145); Total Protein, Blood 6.4 g/dL (6.4-8.2); Vancomycin, Random 18.6 ug/mL
[2022-02-12 13:54] LABS: Influenza A, PCR NEGATIVE (NEGATIVE); Influenza B, PCR NEGATIVE (NEGATIVE); Resp Syncytial Virus, PCR NEGATIVE (NEGATIVE); SARS-Cov-2 (COVID-19) PCR, MMC NEGATIVE (NEGATIVE)
[2022-02-12] MEDS ORDERED: BUPR150ER PO (15:23)
[2022-02-12] MEDS ORDERED: CLOP75 PO (15:25)
[2022-02-12] MEDS ORDERED: PREG25 PO (15:26)
[2022-02-12] MEDS ORDERED: SPIR25 PO (15:27)
[2022-02-12] MEDS ORDERED: CLIN150 PO (15:27)
--- NOTE | 2022-02-12 17:32 | NUR ---
PT AWAKE AGAIN AT START OF SHIFT, RESTING QUIETLY IN BED. NO C/O. PLEASANT AND CO-OP. SPEECH CLEAR AND UNDERSTANDABLE UNTIL PT GETS TIRED OR SOB THEN BECOMES GARBLED AND MUMBLES. PT MEDICALLY STABLE AND WAITING FOR D/C TO SNF. P/T IN TO WORK WITH PT, GETTING PT UP TO CHAIR THIS AM. 1P ASSIST USING GB TO STAND/PIVOT TO CHAIR AT BS. PT MORE DIFFICULT TO GET BACK TO BED AFTER SITTING IN CHAIR FOR SEVERAL HOURS. PT ABLE TO FEED HERSELF BETTER WITH SOFT BITE SIZE FOOD. PT'S HANDS DEFORMED WITH ARTHRITIS, MAKING IT DIFFICULT TO BIODIESEL PRODUCT MANAGER A FORK OR SPOON, BUT SHE TRIES AND WORKS AT IT. DRSG'S TO R HEEL AND LLE C/D/I. D/C ORDERS PLACED. COLD FOOD PACKER ARRANGED TX TO VIA TAM. REPORT CALLED TO MARSHA BREWER @ 1555. TX HERE AT 1600. BELONGINGS SENT WITH PT.
== END 2022-02-12 16:06 | DRG 253 ==
LOC: ER 14:19 → MEDS 14:20 → PCU 02-03 14:03 → MEDS 02-03 16:03 → PCU 02-03 16:03 → MEDS 02-04 14:23 → ENPENDDIS 02-12 15:03 → MEDS 02-12 16:06
PROVIDERS: Emergency Medicine; Family Medicine; Hospitalist; Internal Medicine; Pharmacist; ADMIT Hospitalist
PROC: 047J3DZ Dilation of Left External Iliac Artery with Intraluminal Device, Percutaneous Approach (ICD-10-PCS; principal; 2022-02-03)
PROC: B41G1ZZ Fluoroscopy of Left Lower Extremity Arteries using Low Osmolar Contrast (ICD-10-PCS; 2022-02-03)
DX: I70.249 Atherosclerosis of native arteries of left leg with ulceration of unspecified site (principal); I50.22 Chronic systolic (congestive) heart failure; L03.115 Cellulitis of right lower limb; L03.116 Cellulitis of left lower limb; Z20.822 Contact with and (suspected) exposure to COVID-19; Z66 Do not resuscitate; I11.0 Hypertensive heart disease with heart failure; R41.82 Altered mental status, unspecified; D64.9 Anemia, unspecified; J44.9 Chronic obstructive pulmonary disease, unspecified; G25.81 Restless legs syndrome; G89.4 Chronic pain syndrome; G47.00 Insomnia, unspecified; I48.0 Paroxysmal atrial fibrillation; M10.9 Gout, unspecified; M19.90 Unspecified osteoarthritis, unspecified site; F32.A Depression, unspecified; Z96.643 Presence of artificial hip joint, bilateral; Z88.8 Allergy status to other drugs, medicaments and biological substances; Z91.040 Latex allergy status; Z91.09 Other allergy status, other than to drugs and biological substances; Z79.82 Long term (current) use of aspirin; Z79.899 Other long term (current) drug therapy; Z99.81 Dependence on supplemental oxygen; Z95.810 Presence of automatic (implantable) cardiac defibrillator
CPT/HCPCS: 0241U; 36415; 36569; 37221; 70450; 70498; 71045; 71046; 73630; 75716; 75774; 76937; 80048; 80053; 80069; 80202; 81003; 83735; 84100; 84145; 85025; 85520; 85610; 85651; 86140; 87040; 93308; 93880; 93925; 94640; 94664; 94760; 94762; 96365; 96366; 96375; 96376; 97110; 97116; 97129; 97130; 97162; 97166; 97530; 97535; 99152; 99153; 99285-25; A9270; C1751; C1760; C1769; C1876; C1887; C1894; G0378; J0690; J1644; J1650; J2250; J3010; J3370; J7030; J7050; Q9967

== ENCOUNTER 2022-02-17 13:09 | Emergency (ER) | payer OTHER ==
[~2022-02-17] VITALS: Ht 172.7 cm; Wt 78.0 kg
[~2022-02-17 13:09] MED LIST changes: +BUPR150ER PO; +CLIN150 PO; +PREG25 PO
== END 2022-02-17 15:08 | disposition home or self-care (01) ==
LOC: ER 13:09
DX: Z00.00 Encounter for general adult medical examination without abnormal findings (principal); I10 Essential (primary) hypertension
CPT/HCPCS: 99283

== ENCOUNTER 2022-03-03 10:19 | Day surgery (SDC) | payer OTHER ==
[~2022-03-03] VITALS: Ht 167.6 cm; Wt 79.0 kg
[~2022-03-03 10:19] MED LIST changes: +NYSTATIN15 GM TOP
--- NOTE | 2022-03-03 13:50 | NUR ---
PT 2 PERSON ASSISTED TO BSC, UNMEASURED VOID. PT REPOSITIONED FOR COMFORT BACK ON [facility] WHEN FINISHED. AWAITING PROCEDURE. RECENTLY UPDATED FAMILY ON START TIME. NO ACUTE DISTRESS NOTED AT THIS TIME.
--- NOTE | 2022-03-03 15:33 | NUR ---
PT PROCEDURE TO BE RESCHEDULED PER DR ARCHULETA. PT AWARE AND IN AGREEMENT WITH PLAN. PROCEDURE RESCHEDULED TO March AT 0730. SALINE LOCK REMOVED WITH CATHETER INTACT.
--- NOTE | 2022-03-03 16:00 | NUR ---
PT WAS ASSITED WITH DRESSING AND TRANSFERRED TO OWN W/C. [facility] UPDATED THAT PT'S PROCEDURE WAS BEING RESCHEDULED AND WILL BE RETURNING. MTM CALLED TO ARRANGE TRANSPORT BACK TO [facility].
== END 2022-03-03 22:42 | disposition home or self-care (01) ==
LOC: MHTC 10:19
DX: I87.8 Other specified disorders of veins (principal); Z53.9 Procedure and treatment not carried out, unspecified reason
CPT/HCPCS: 93005; 93010

== ENCOUNTER → 2022-03-08 | Outpatient (CLI) | payer OTHER ==
[~2022-03-08] MED LIST changes: +MIRALAX1712 PO
[2022-03-08 17:54] LABS: Albumin, Blood 2.6 g/dL (3.4-5.0); Anion Gap 10 mmol/L (6-16); Blood Urea Nitrogen 50 mg/dL (8-24); CO2, Blood 22 mmol/L (21-32); Calcium, Blood 8.7 mg/dL (8.5-10.1); Chloride, Blood 96 mmol/L (98-108); Glucose, Blood 58 mg/dL (70-99); Phosphorus, Blood 4.6 mg/dL (2.5-4.9); Potassium, Blood 5.1 mmol/L (3.5-5.5); Sodium, Blood 128 mmol/L (136-145)
[2022-03-08 18:01] LABS: Bun/Creatinine Ratio 41.3 (12.0-20.0); Creatinine, Blood 1.21 mg/dL (0.40-1.00); Glomerular Filtration Rate 43 (60-)
== END | disposition home or self-care (01) ==
LOC: EDSTATUS 14:26 → LAB RH 16:00
PROVIDERS: Internal Medicine
DX: I11.0 Hypertensive heart disease with heart failure (principal); I50.9 Heart failure, unspecified
CPT/HCPCS: 80069; 85018

== ENCOUNTER → 2022-03-10 | Outpatient (CLI) | payer OTHER ==
[2022-03-10 16:59] LABS: Albumin, Blood 2.8 g/dL (3.4-5.0); Anion Gap 8 mmol/L (6-16); Blood Urea Nitrogen 53 mg/dL (8-24); Bun/Creatinine Ratio 35.6 (12.0-20.0); CO2, Blood 26 mmol/L (21-32); Calcium, Blood 8.9 mg/dL (8.5-10.1); Chloride, Blood 97 mmol/L (98-108); Creatinine, Blood 1.49 mg/dL (0.40-1.00); Glomerular Filtration Rate 34 (60-); Glucose, Blood 77 mg/dL (70-99); Phosphorus, Blood 4.4 mg/dL (2.5-4.9); Potassium, Blood 5.2 mmol/L (3.5-5.5); Sodium, Blood 131 mmol/L (136-145)
== END | disposition home or self-care (01) ==
LOC: LAB RH 12:36 → EDSTATUS 14:27
PROVIDERS: Internal Medicine
DX: I48.0 Paroxysmal atrial fibrillation (principal)
CPT/HCPCS: 80069

== ENCOUNTER → 2022-03-17 | Outpatient (CLI) | payer OTHER | END | disposition home or self-care (01) | LOC: LAB RH 13:02 → EDSTATUS 14:29 | DX: L03.116 Cellulitis of left lower limb (principal); M62.59 Muscle wasting and atrophy, not elsewhere classified, multiple sites | CPT/HCPCS: 84132 ==

== ENCOUNTER → 2022-03-22 | Outpatient (CLI) | payer OTHER ==
[2022-03-22 13:39] LABS: Hemoglobin 13.2 g/dL (11.5-16.0); Mean Corpuscular HGB 25.8 pg (26.0-34.0); Mean Corpuscular Volume 86 fL (80-100); Mean Platelet Volume 10.4 fL (9.1-12.4); Platelet Count 245 K/mm3 (150-400); RDW Coefficient Variation 17.9 % (11.7-14.2); RDW Standard Deviation 55.7 fL (35.1-46.3); Red Blood Cell Count 5.11 M/mm3 (3.80-5.20); White Blood Cell Count 6.58 K/mm3 (4.00-11.30)
[2022-03-22 13:49] LABS: Bun/Creatinine Ratio 68.2 (12.0-20.0); Calcium, Blood 8.5 mg/dL (8.5-10.1); Creatinine, Blood 1.1 mg/dL (0.40-1.00); Potassium, Blood 4.5 mmol/L (3.5-5.5)
== END | disposition home or self-care (01) ==
LOC: LAB RH 12:10 → EDSTATUS 14:30
PROVIDERS: Family Medicine
DX: I70.229 Atherosclerosis of native arteries of extremities with rest pain, unspecified extremity (principal)
CPT/HCPCS: 80048; 85027

== ENCOUNTER 2022-03-23 06:24 | Day surgery (SDC) | payer OTHER ==
[~2022-03-23] VITALS: Ht 172.7 cm; Wt 78.1 kg
[~2022-03-23 06:24] MED LIST changes: -MIRALAX1712 PO
[2022-03-23] MEDS ORDERED: MIRALAX1712 PO (07:46)
[2022-03-23] MEDS ORDERED: ONDA4 PO (07:46)
--- NOTE | 2022-03-23 09:59 | NUR ---
PATIENT ARRIVES BACK FROM THE CATHLAB. PATIENT PLACED ON THE MONITOR. SBAR RECEIVED FROM DANIELLA MEDRANO. 4LPM NC CONTINUED. SAT READING 97%. PATIETN STILL VERY SLEEPY. MOVING RIGHT LEG AT WILL. LEFT GROIN STABLE, DRESSING CDI. NO BLEEDING. NO HEMATOMA. DOPPLER PULSES NOTED SERA PT/DP.
--- NOTE | 2022-03-23 10:28 | NUR ---
RIGHT FOOT CLEANED AND DRESSED WITH NON ADHERANT DRESSING AND NETTING. PAITENT TOLERATED WELL. PATIENT ANSWERING QUEESTIONS WITH EYES CLOSED AND FOLLOWING SIMPLE COMMANDS BUT STILL SLEEPY. SATURATION 98% ON 3-4 LPM BNC.
--- NOTE | 2022-03-23 10:30 | NUR ---
DAUGHTER PHONED AND GIVEN UPDATE.
--- NOTE | 2022-03-23 12:02 | NUR ---
DR. ARCHULETA AT THE BEDSIDE AND SPOKE AT LENGTH WITH THE FAMILY. ALL QUESTIONS ANSWERED.
--- NOTE | 2022-03-23 12:31 | NUR ---
ATTEMPTED TO CALL [facility] REPORT AND MAKE ARRANGMENTS FOR TRANSFER. UNABLE TO REACH CHARGE NURSE.
--- NOTE | 2022-03-23 13:13 | NUR ---
PATIENT OFF MONITOR, PIV REMOVED.CATH TIP INTACT. PRESSURE DRESSING APPLIED. [facility] AR[facility]ANGING FOR [facility] FOR RETURN TO [facility] FOR PATIENT. PATIENT ASSISTED WITH DRESSING AND TRANSFER TO WHEELCHAIR. [facility] HERE. REPORT GIVEN AND TRANSFER OF CARE TO [facility]. PATIENT IN PERSONAL WHEELCHAIR FOR TRANSFER BACK TO [facility]. LEFT GROIN SITE STABLE AND NO PAIN NOTED FORM THE PATIENT. PATIENT TRANSFERED ON 4 LPM [facility].
== END 2022-03-23 13:00 | disposition home or self-care (01) ==
LOC: MHTC 06:24
DX: I70.238 Atherosclerosis of native arteries of right leg with ulceration of other part of lower leg (principal); L97.819 Non-pressure chronic ulcer of other part of right lower leg with unspecified severity; I10 Essential (primary) hypertension; I25.10 Atherosclerotic heart disease of native coronary artery without angina pectoris; I65.29 Occlusion and stenosis of unspecified carotid artery; I13.0 Hypertensive heart and chronic kidney disease with heart failure and stage 1 through stage 4 chronic kidney disease, or unspecified chronic kidney disease; I50.20 Unspecified systolic (congestive) heart failure; N18.30 Chronic kidney disease, stage 3 unspecified; I48.91 Unspecified atrial fibrillation; M19.90 Unspecified osteoarthritis, unspecified site; J44.9 Chronic obstructive pulmonary disease, unspecified; Z86.73 Personal history of transient ischemic attack (TIA), and cerebral infarction without residual deficits; Z91.040 Latex allergy status; Z88.8 Allergy status to other drugs, medicaments and biological substances; Z91.048 Other nonmedicinal substance allergy status
CPT/HCPCS: 37224; 37228; 37232; 75716; 75774; 76937; 85347; 99152; 99153; C1725; C1760; C1769; C1887; C1894; J1644; J2250; J3010; J7030; J7040; Q9967

== ENCOUNTER → 2022-03-25 | Outpatient (CLI) | payer OTHER ==
[~2022-03-25] MED LIST changes: +MIRALAX1712 PO
[2022-03-25 09:08] LABS: CHOL/HDL RATIO 4.3; Cholesterol 175 mg/dL (50-200); HDL Cholesterol 41 mg/dL (>39); LDL/HDL RATIO 2.8; Low Density Lipoprotein Chol 114 mg/dL (0-110); Triglycerides 102 mg/dL (30-160); Very Low Density Lipoprot Chol 20 mg/dL (6-32)
== END | disposition home or self-care (01) ==
LOC: LAB RH 07:05 → EDSTATUS 14:44
PROVIDERS: Family Medicine
DX: E78.5 Hyperlipidemia, unspecified (principal)
CPT/HCPCS: 80061

== ENCOUNTER 2022-03-29 03:07 | Day surgery (SDC) | payer OTHER | END 2022-03-29 23:08 | disposition home or self-care (01) | LOC: WOUND 03:07 | DX: L97.512 Non-pressure chronic ulcer of other part of right foot with fat layer exposed (principal); L97.522 Non-pressure chronic ulcer of other part of left foot with fat layer exposed; L97.812 Non-pressure chronic ulcer of other part of right lower leg with fat layer exposed; I70.229 Atherosclerosis of native arteries of extremities with rest pain, unspecified extremity; I70.213 Atherosclerosis of native arteries of extremities with intermittent claudication, bilateral legs; Z88.8 Allergy status to other drugs, medicaments and biological substances; I11.0 Hypertensive heart disease with heart failure; I50.9 Heart failure, unspecified; I25.10 Atherosclerotic heart disease of native coronary artery without angina pectoris; I25.2 Old myocardial infarction; Z95.810 Presence of automatic (implantable) cardiac defibrillator; Z96.643 Presence of artificial hip joint, bilateral | CPT/HCPCS: A9270; G0463 ==

== ENCOUNTER → 2022-04-02 | Outpatient (CLI) | payer OTHER ==
[2022-04-02 16:01] LABS: Source, Urine Clean Catch
[2022-04-02 17:15] LABS: Appearance, Urine Cloudy (Clear); Bilirubin, Urine Neg (Neg); Blood, Urine 1+ (Neg); Color, Urine Yellow (P-Yellow); Glucose Qualitative, Urine Neg (Neg); Ketones, Urine Neg (Neg); Leukocyte Esterase, Urine 3+ (Neg); Nitrite, Urine Neg (Neg); Protein, Urine 2+ (Neg); Specific Gravity, Urine 1.015 (1.003-1.022); Urobilinogen, Urine NORM (Normal)
[2022-04-02 17:22] LABS: Bacteria Many /hpf; Hyaline Casts 0-2 /lpf (0-2); Squamous Epithelial Cells Mod /hpf (Few); Triple Phosphate Crystals Few /hpf
== END | disposition home or self-care (01) ==
LOC: EDSTATUS 14:54 → LAB RH 15:57
PROVIDERS: Nurse Practitioner Family
DX: N39.0 Urinary tract infection, site not specified (principal)
CPT/HCPCS: 81001

== ENCOUNTER 2022-04-28 00:27 | Day surgery (SDC) | payer OTHER | END 2022-04-28 22:41 | disposition home or self-care (01) | LOC: WOUND 00:27 | DX: L97.526 Non-pressure chronic ulcer of other part of left foot with bone involvement without evidence of necrosis (principal); L97.812 Non-pressure chronic ulcer of other part of right lower leg with fat layer exposed; L97.512 Non-pressure chronic ulcer of other part of right foot with fat layer exposed; L97.522 Non-pressure chronic ulcer of other part of left foot with fat layer exposed; I70.229 Atherosclerosis of native arteries of extremities with rest pain, unspecified extremity; I70.213 Atherosclerosis of native arteries of extremities with intermittent claudication, bilateral legs | CPT/HCPCS: A9270; G0463 ==

== ENCOUNTER 2022-05-02 00:04 | Emergency (ER) | payer OTHER ==
[~2022-05-02] VITALS: Ht 172.7 cm; Wt 79.4 kg
== END 2022-05-02 08:49 | disposition home or self-care (01) ==
LOC: ER 00:04
DX: S01.112A Laceration without foreign body of left eyelid and periocular area, initial encounter (principal); I11.0 Hypertensive heart disease with heart failure; I50.9 Heart failure, unspecified; J44.9 Chronic obstructive pulmonary disease, unspecified; Z95.0 Presence of cardiac pacemaker; Z79.899 Other long term (current) drug therapy; Z79.82 Long term (current) use of aspirin; Z79.02 Long term (current) use of antithrombotics/antiplatelets; Z91.040 Latex allergy status; Z88.8 Allergy status to other drugs, medicaments and biological substances; Z91.09 Other allergy status, other than to drugs and biological substances; W01.198A Fall on same level from slipping, tripping and stumbling with subsequent striking against other object, initial encounter
CPT/HCPCS: 70450; A9270

== ENCOUNTER 2022-05-19 03:39 | Day surgery (SDC) | payer OTHER | END 2022-05-19 23:56 | disposition home or self-care (01) | LOC: WOUND 03:39 | DX: L97.516 Non-pressure chronic ulcer of other part of right foot with bone involvement without evidence of necrosis (principal); L97.812 Non-pressure chronic ulcer of other part of right lower leg with fat layer exposed; L97.526 Non-pressure chronic ulcer of other part of left foot with bone involvement without evidence of necrosis; L97.522 Non-pressure chronic ulcer of other part of left foot with fat layer exposed; I70.229 Atherosclerosis of native arteries of extremities with rest pain, unspecified extremity; I70.213 Atherosclerosis of native arteries of extremities with intermittent claudication, bilateral legs; I74.3 Embolism and thrombosis of arteries of the lower extremities | CPT/HCPCS: 73630; A9270; G0463 ==

== ENCOUNTER 2022-05-24 06:49 | Day surgery (SDC) | payer OTHER | END 2022-05-24 23:20 | disposition home or self-care (01) | LOC: HBO 06:49 | DX: L97.516 Non-pressure chronic ulcer of other part of right foot with bone involvement without evidence of necrosis (principal); L97.812 Non-pressure chronic ulcer of other part of right lower leg with fat layer exposed; L97.526 Non-pressure chronic ulcer of other part of left foot with bone involvement without evidence of necrosis; L97.522 Non-pressure chronic ulcer of other part of left foot with fat layer exposed; I70.229 Atherosclerosis of native arteries of extremities with rest pain, unspecified extremity; I70.213 Atherosclerosis of native arteries of extremities with intermittent claudication, bilateral legs; I74.3 Embolism and thrombosis of arteries of the lower extremities | CPT/HCPCS: G0277 ==

== ENCOUNTER → 2022-05-25 | Day surgery (SDC) | payer OTHER | LOC: HBO 03:11 | DX: I70.213 Atherosclerosis of native arteries of extremities with intermittent claudication, bilateral legs (principal); I70.229 Atherosclerosis of native arteries of extremities with rest pain, unspecified extremity; L97.812 Non-pressure chronic ulcer of other part of right lower leg with fat layer exposed; L97.513 Non-pressure chronic ulcer of other part of right foot with necrosis of muscle; L97.526 Non-pressure chronic ulcer of other part of left foot with bone involvement without evidence of necrosis; I74.3 Embolism and thrombosis of arteries of the lower extremities | CPT/HCPCS: G0277 ==

== ENCOUNTER 2022-05-27 01:33 | Day surgery (SDC) | payer OTHER | END 2022-05-28 23:11 | disposition home or self-care (01) | LOC: HBO 01:33 | DX: I74.3 Embolism and thrombosis of arteries of the lower extremities (principal); L97.812 Non-pressure chronic ulcer of other part of right lower leg with fat layer exposed; L97.516 Non-pressure chronic ulcer of other part of right foot with bone involvement without evidence of necrosis; L97.522 Non-pressure chronic ulcer of other part of left foot with fat layer exposed; I70.229 Atherosclerosis of native arteries of extremities with rest pain, unspecified extremity; I70.213 Atherosclerosis of native arteries of extremities with intermittent claudication, bilateral legs; L97.526 Non-pressure chronic ulcer of other part of left foot with bone involvement without evidence of necrosis | CPT/HCPCS: G0277 ==

== ENCOUNTER 2022-05-27 01:37 | Day surgery (SDC) | payer OTHER | END 2022-05-28 23:11 | disposition home or self-care (01) | LOC: WOUND 01:37 | DX: I70.245 Atherosclerosis of native arteries of left leg with ulceration of other part of foot (principal); I70.233 Atherosclerosis of native arteries of right leg with ulceration of ankle; L97.316 Non-pressure chronic ulcer of right ankle with bone involvement without evidence of necrosis; L97.526 Non-pressure chronic ulcer of other part of left foot with bone involvement without evidence of necrosis; L97.816 Non-pressure chronic ulcer of other part of right lower leg with bone involvement without evidence of necrosis; I74.3 Embolism and thrombosis of arteries of the lower extremities; I70.213 Atherosclerosis of native arteries of extremities with intermittent claudication, bilateral legs | CPT/HCPCS: 87071; 87075; 87077; 87147; 87186; 87205; A9270; G0463 ==

== ENCOUNTER 2022-06-01 02:50 | Day surgery (SDC) | payer OTHER | END 2022-06-01 22:48 | disposition home or self-care (01) | LOC: HBO 02:50 | DX: I74.3 Embolism and thrombosis of arteries of the lower extremities (principal); I70.229 Atherosclerosis of native arteries of extremities with rest pain, unspecified extremity; I70.213 Atherosclerosis of native arteries of extremities with intermittent claudication, bilateral legs; L97.812 Non-pressure chronic ulcer of other part of right lower leg with fat layer exposed; L97.516 Non-pressure chronic ulcer of other part of right foot with bone involvement without evidence of necrosis; L97.522 Non-pressure chronic ulcer of other part of left foot with fat layer exposed; L97.526 Non-pressure chronic ulcer of other part of left foot with bone involvement without evidence of necrosis | CPT/HCPCS: G0277 ==

== ENCOUNTER 2022-06-02 00:56 | Day surgery (SDC) | payer OTHER | END 2022-06-02 23:30 | disposition home or self-care (01) | LOC: HBO 00:56 | DX: L97.516 Non-pressure chronic ulcer of other part of right foot with bone involvement without evidence of necrosis (principal); L97.526 Non-pressure chronic ulcer of other part of left foot with bone involvement without evidence of necrosis; L97.812 Non-pressure chronic ulcer of other part of right lower leg with fat layer exposed; L97.522 Non-pressure chronic ulcer of other part of left foot with fat layer exposed; I70.229 Atherosclerosis of native arteries of extremities with rest pain, unspecified extremity; I70.213 Atherosclerosis of native arteries of extremities with intermittent claudication, bilateral legs; I74.3 Embolism and thrombosis of arteries of the lower extremities | CPT/HCPCS: G0277 ==

== ENCOUNTER 2022-06-03 01:55 | Day surgery (SDC) | payer OTHER | END 2022-06-03 23:15 | disposition home or self-care (01) | LOC: HBO 01:55 | DX: L97.516 Non-pressure chronic ulcer of other part of right foot with bone involvement without evidence of necrosis (principal); L97.526 Non-pressure chronic ulcer of other part of left foot with bone involvement without evidence of necrosis; L97.812 Non-pressure chronic ulcer of other part of right lower leg with fat layer exposed; L97.522 Non-pressure chronic ulcer of other part of left foot with fat layer exposed; I70.229 Atherosclerosis of native arteries of extremities with rest pain, unspecified extremity; I70.213 Atherosclerosis of native arteries of extremities with intermittent claudication, bilateral legs; I74.3 Embolism and thrombosis of arteries of the lower extremities | CPT/HCPCS: G0277 ==

== ENCOUNTER 2022-06-04 01:15 | Day surgery (SDC) | payer OTHER | END 2022-06-04 23:01 | disposition home or self-care (01) | LOC: WOUND 01:15 | DX: L97.516 Non-pressure chronic ulcer of other part of right foot with bone involvement without evidence of necrosis (principal); L97.526 Non-pressure chronic ulcer of other part of left foot with bone involvement without evidence of necrosis; L97.812 Non-pressure chronic ulcer of other part of right lower leg with fat layer exposed; L97.522 Non-pressure chronic ulcer of other part of left foot with fat layer exposed; I70.229 Atherosclerosis of native arteries of extremities with rest pain, unspecified extremity; I70.213 Atherosclerosis of native arteries of extremities with intermittent claudication, bilateral legs; I74.3 Embolism and thrombosis of arteries of the lower extremities | CPT/HCPCS: A9270; G0463 ==

== ENCOUNTER 2022-06-07 02:02 | Day surgery (SDC) | payer OTHER | END 2022-06-07 23:08 | disposition home or self-care (01) | LOC: HBO | DX: L97.526 Non-pressure chronic ulcer of other part of left foot with bone involvement without evidence of necrosis (principal); L97.812 Non-pressure chronic ulcer of other part of right lower leg with fat layer exposed; L97.516 Non-pressure chronic ulcer of other part of right foot with bone involvement without evidence of necrosis; L97.522 Non-pressure chronic ulcer of other part of left foot with fat layer exposed; I70.229 Atherosclerosis of native arteries of extremities with rest pain, unspecified extremity; I70.213 Atherosclerosis of native arteries of extremities with intermittent claudication, bilateral legs; I71.3 Abdominal aortic aneurysm, ruptured; I74.3 Embolism and thrombosis of arteries of the lower extremities | CPT/HCPCS: G0277 ==

== ENCOUNTER 2022-06-08 01:05 | Day surgery (SDC) | payer OTHER | END 2022-06-08 23:51 | disposition home or self-care (01) | LOC: HBO 01:05 | DX: I70.245 Atherosclerosis of native arteries of left leg with ulceration of other part of foot (principal); I70.235 Atherosclerosis of native arteries of right leg with ulceration of other part of foot; L97.522 Non-pressure chronic ulcer of other part of left foot with fat layer exposed; L97.516 Non-pressure chronic ulcer of other part of right foot with bone involvement without evidence of necrosis; L97.812 Non-pressure chronic ulcer of other part of right lower leg with fat layer exposed; I74.3 Embolism and thrombosis of arteries of the lower extremities | CPT/HCPCS: G0277 ==

== ENCOUNTER 2022-06-16 00:20 | Day surgery (SDC) | payer OTHER | END 2022-06-16 23:04 | disposition home or self-care (01) | LOC: WOUND 00:20 | DX: I70.245 Atherosclerosis of native arteries of left leg with ulceration of other part of foot (principal); I70.235 Atherosclerosis of native arteries of right leg with ulceration of other part of foot; L97.526 Non-pressure chronic ulcer of other part of left foot with bone involvement without evidence of necrosis; L97.516 Non-pressure chronic ulcer of other part of right foot with bone involvement without evidence of necrosis; L97.812 Non-pressure chronic ulcer of other part of right lower leg with fat layer exposed; I74.3 Embolism and thrombosis of arteries of the lower extremities | CPT/HCPCS: A9270 ==

== ENCOUNTER → 2022-06-18 | Outpatient (CLI) | payer OTHER ==
[~2022-06-18] MED LIST changes: +Amitriptyline H10 MG PO; +DOXY100 PO; +JUVEN PACKET1 EAC3 PO
[2022-06-18 14:33] LABS: Bun/Creatinine Ratio 49.2 (12.0-20.0); Creatinine, Blood 1.24 mg/dL (0.40-1.00); Potassium, Blood 4.3 mmol/L (3.5-5.5)
== END ==
LOC: EDSTATUS 09:47 → LAB RH 12:51
PROVIDERS: Internal Medicine
DX: L11.0 Acquired keratosis follicularis (principal)
CPT/HCPCS: 80048

== ENCOUNTER 2022-06-23 00:53 | Day surgery (SDC) | payer OTHER ==
[~2022-06-23 00:53] MED LIST changes: -Amitriptyline H10 MG PO; -DOXY100 PO; -JUVEN PACKET1 EAC3 PO
== END 2022-06-23 23:37 | disposition home or self-care (01) ==
LOC: WOUND 00:53
DX: I70.245 Atherosclerosis of native arteries of left leg with ulceration of other part of foot (principal); L97.526 Non-pressure chronic ulcer of other part of left foot with bone involvement without evidence of necrosis; I70.234 Atherosclerosis of native arteries of right leg with ulceration of heel and midfoot; L97.416 Non-pressure chronic ulcer of right heel and midfoot with bone involvement without evidence of necrosis; I70.238 Atherosclerosis of native arteries of right leg with ulceration of other part of lower leg; L97.812 Non-pressure chronic ulcer of other part of right lower leg with fat layer exposed; I74.3 Embolism and thrombosis of arteries of the lower extremities
CPT/HCPCS: A9270

== ENCOUNTER 2022-07-06 02:04 | Day surgery (SDC) | payer OTHER | END 2022-07-06 23:59 | disposition home or self-care (01) | LOC: WOUND 02:04 | DX: I70.245 Atherosclerosis of native arteries of left leg with ulceration of other part of foot (principal); I70.234 Atherosclerosis of native arteries of right leg with ulceration of heel and midfoot; L97.525 Non-pressure chronic ulcer of other part of left foot with muscle involvement without evidence of necrosis; L97.416 Non-pressure chronic ulcer of right heel and midfoot with bone involvement without evidence of necrosis; I74.3 Embolism and thrombosis of arteries of the lower extremities; M86.9 Osteomyelitis, unspecified | CPT/HCPCS: A9270; G0463 ==

== ENCOUNTER → 2022-07-14 | Outpatient (CLI) | payer OTHER ==
[~2022-07-14] MED LIST changes: +Amitriptyline H10 MG PO; +DOXY100 PO; +JUVEN PACKET1 EAC3 PO
[2022-07-15 01:05] LABS: BASOPHILS ABSOLUTE AUTO 0.05 K/mm3 (0.00-0.23); BASOPHILS PERCENT AUTO 1 % (0-2); EOSINOPHILS ABSOLUTE AUTO 0.21 K/mm3 (0.00-0.68); EOSINOPHILS PERCENT AUTO 3 % (0-6); Hematocrit 37.6 % (33.0-51.0); IMMATURE GRAN ABSOLUTE AUTO 0.04 K/mm3 (0.00-0.10); IMMATURE GRAN PERCENT AUTO 1 % (0-1); LYMPHOCYTES ABSOLUTE AUTO 1.42 K/mm3 (0.84-5.20); LYMPHOCYTES PERCENT AUTO 19 % (21-46); MONOCYTES ABSOLUTE AUTO 1.22 K/mm3 (0.16-1.47); MONOCYTES PERCENT AUTO 16 % (4-13); Mean Corpuscular HGB 28.1 pg (26.0-34.0); Mean Corpuscular HGB Conc 31.9 g/dL (31.5-36.5); Mean Corpuscular Volume 88 fL (80-100); Mean Platelet Volume 9.8 fL (9.1-12.4); NEUTROPHILS ABSOLUTE AUTO 4.56 K/mm3 (1.96-9.15); NEUTROPHILS PERCENT AUTO 61 % (41-73); Platelet Count 270 K/mm3 (150-400); RDW Coefficient Variation 15.5 % (11.7-14.2); RDW Standard Deviation 49.6 fL (35.1-46.3); Red Blood Cell Count 4.27 M/mm3 (3.80-5.20)
[2022-07-15 01:42] LABS: Albumin, Blood 2.7 g/dL (3.4-5.0); Albumin/Globulin Ratio 0.7 (0.8-1.8); Bilirubin, Total 0.3 mg/dL (0.1-1.0); Bun/Creatinine Ratio 36.6 (12.0-20.0); Calcium, Blood 8.3 mg/dL (8.5-10.1); Creatinine, Blood 0.96 mg/dL (0.40-1.00); Globulin, Blood 3.9 g/dL (2.2-4.0); Potassium, Blood 4.7 mmol/L (3.5-5.5); Total Protein, Blood 6.6 g/dL (6.4-8.2)
== END ==
LOC: EDSTATUS 09:58 → LAB RH 23:50
PROVIDERS: Internal Medicine
DX: L03.116 Cellulitis of left lower limb (principal); I73.9 Peripheral vascular disease, unspecified; I11.0 Hypertensive heart disease with heart failure; I50.30 Unspecified diastolic (congestive) heart failure; J44.9 Chronic obstructive pulmonary disease, unspecified; M10.00 Idiopathic gout, unspecified site; F41.9 Anxiety disorder, unspecified; I21.4 Non-ST elevation (NSTEMI) myocardial infarction; I48.0 Paroxysmal atrial fibrillation; M62.59 Muscle wasting and atrophy, not elsewhere classified, multiple sites; M62.81 Muscle weakness (generalized); R26.2 Difficulty in walking, not elsewhere classified; R41.841 Cognitive communication deficit; R27.8 Other lack of coordination; R13.12 Dysphagia, oropharyngeal phase; F33.9 Major depressive disorder, recurrent, unspecified; K21.9 Gastro-esophageal reflux disease without esophagitis; K66.1 Hemoperitoneum; G25.81 Restless legs syndrome; Z74.1 Need for assistance with personal care; G47.33 Obstructive sleep apnea (adult) (pediatric)
CPT/HCPCS: 80053; 85025

== ENCOUNTER → 2022-07-15 | Outpatient (CLI) | payer OTHER ==
[2022-07-16 00:58] LABS: BASOPHILS ABSOLUTE AUTO 0.05 K/mm3 (0.00-0.23); BASOPHILS PERCENT AUTO 1 % (0-2); EOSINOPHILS PERCENT AUTO 2 % (0-6); Hematocrit 36.9 % (33.0-51.0); IMMATURE GRAN ABSOLUTE AUTO 0.07 K/mm3 (0.00-0.10); IMMATURE GRAN PERCENT AUTO 1 % (0-1); LYMPHOCYTES ABSOLUTE AUTO 1.52 K/mm3 (0.84-5.20); LYMPHOCYTES PERCENT AUTO 18 % (21-46); MONOCYTES ABSOLUTE AUTO 1.58 K/mm3 (0.16-1.47); MONOCYTES PERCENT AUTO 19 % (4-13); Mean Corpuscular HGB 28.4 pg (26.0-34.0); Mean Corpuscular HGB Conc 32.5 g/dL (31.5-36.5); Mean Corpuscular Volume 87 fL (80-100); Mean Platelet Volume 9.7 fL (9.1-12.4); NEUTROPHILS ABSOLUTE AUTO 5.13 K/mm3 (1.96-9.15); NEUTROPHILS PERCENT AUTO 60 % (41-73); Platelet Count 259 K/mm3 (150-400); RDW Coefficient Variation 15.3 % (11.7-14.2); RDW Standard Deviation 48.3 fL (35.1-46.3); Red Blood Cell Count 4.23 M/mm3 (3.80-5.20); White Blood Cell Count 8.55 K/mm3 (4.00-11.30)
== END ==
LOC: EDSTATUS 09:59 → LAB RH 23:05
PROVIDERS: Internal Medicine
DX: L03.116 Cellulitis of left lower limb (principal)
CPT/HCPCS: 84550; 85025

== ENCOUNTER → 2022-08-02 | Outpatient (CLI) | payer OTHER ==
[2022-08-02 16:42] LABS: Bun/Creatinine Ratio 47.3 (12.0-20.0); Calcium, Blood 9.7 mg/dL (8.5-10.1); Creatinine, Blood 1.1 mg/dL (0.40-1.00); Potassium, Blood 4.6 mmol/L (3.5-5.5)
== END ==
LOC: EDSTATUS 10:00 → LAB RH 13:38
PROVIDERS: Internal Medicine
DX: J44.9 Chronic obstructive pulmonary disease, unspecified (principal)
CPT/HCPCS: 80048

== ENCOUNTER 2022-08-10 02:22 | Day surgery (SDC) | payer OTHER ==
[~2022-08-10 02:22] MED LIST changes: -Amitriptyline H10 MG PO; -DOXY100 PO; -JUVEN PACKET1 EAC3 PO
[2022-08-11] MEDS ORDERED: DOXY100 PO (10:42)
[2022-08-11] MEDS ORDERED: Amitriptyline H10 MG PO (10:43)
[2022-08-11] MEDS ORDERED: JUVEN PACKET1 EAC3 PO (10:43)
[2022-08-11] MEDS ORDERED: ALLO100 PO (10:44)
== END 2022-08-10 22:46 | disposition home or self-care (01) ==
LOC: WOUND 02:22
DX: L97.516 Non-pressure chronic ulcer of other part of right foot with bone involvement without evidence of necrosis (principal); L97.522 Non-pressure chronic ulcer of other part of left foot with fat layer exposed; L89.892 Pressure ulcer of other site, stage 2; L03.116 Cellulitis of left lower limb; S91.105D Unspecified open wound of left lesser toe(s) without damage to nail, subsequent encounter; X58.XXXD Exposure to other specified factors, subsequent encounter; I73.9 Peripheral vascular disease, unspecified; R22.32 Localized swelling, mass and lump, left upper limb
CPT/HCPCS: A9270; G0463

== ENCOUNTER 2022-08-11 09:53 | Day surgery (SDC) | payer OTHER ==
[~2022-08-11] VITALS: Ht 172.7 cm; Wt 65.0 kg
[2022-08-11] MEDS ORDERED: DOXY100 PO (10:42)
[2022-08-11] MEDS ORDERED: Amitriptyline H10 MG PO (10:43)
[2022-08-11] MEDS ORDERED: JUVEN PACKET1 EAC3 PO (10:43)
[2022-08-11] MEDS ORDERED: ALLO100 PO (10:44)
--- NOTE | 2022-08-11 14:42 | NUR ---
CALLED TMT FOR PATIENT TRANSPORTATION BACK TO [facility]. THEY WILL BE RETURNING PATIENT AT APPROX 1615 TODAY. PT RESTING COMFORTABLY.NADN. VSS. PT L FEMORAL SITE REMAINS CLEAR. NO BLEEDING OR HEMATOMA NOTED. CALL LIGHT WITHIN REACH.
--- NOTE | 2022-08-11 16:20 | NUR ---
PT IV DC'D. CATH INTACT. PRESSURE DSG IN PLACE. VSS. NADN. PT VERBALIZES UNDERSTANDING WRITTEN AND VERBAL INSTRUCTIONS. PT ASSISTED WITH DRESSING SELF AND INTO HER WC. PT DC TO HOME VIA WC BY [facility] BACK TO [facility].
--- NOTE | 2022-08-11 16:27 | NUR ---
ANDREE CALLED WITH REPORT, VERBALIZES UNDERSTANDING.
== END 2022-08-11 16:25 | disposition home or self-care (01) ==
LOC: MHTC 09:53
DX: Z45.018 Encounter for adjustment and management of other part of cardiac pacemaker (principal); I70.221 Atherosclerosis of native arteries of extremities with rest pain, right leg; L97.909 Non-pressure chronic ulcer of unspecified part of unspecified lower leg with unspecified severity; I48.91 Unspecified atrial fibrillation
CPT/HCPCS: 75716; 75774; 76937; 93283; 99152; 99153; A9270; C1725; C1760; C1769; C1887; C1894; C9772; J1644; J2250; J3010; J7030; J7040; Q9967

== ENCOUNTER 2022-08-17 02:33 | Day surgery (SDC) | payer OTHER ==
[~2022-08-17 02:33] MED LIST changes: +Amitriptyline H10 MG PO; +DOXY100 PO; +JUVEN PACKET1 EAC3 PO
== END 2022-08-17 22:41 | disposition home or self-care (01) ==
LOC: WOUND 02:33
DX: L97.526 Non-pressure chronic ulcer of other part of left foot with bone involvement without evidence of necrosis (principal); L97.516 Non-pressure chronic ulcer of other part of right foot with bone involvement without evidence of necrosis; L89.892 Pressure ulcer of other site, stage 2; S91.105D Unspecified open wound of left lesser toe(s) without damage to nail, subsequent encounter; I73.9 Peripheral vascular disease, unspecified; R22.32 Localized swelling, mass and lump, left upper limb; L03.116 Cellulitis of left lower limb
CPT/HCPCS: A9270; G0463

== ENCOUNTER 2022-09-03 01:50 | Day surgery (SDC) | payer OTHER | END 2022-09-03 23:07 | disposition home or self-care (01) | LOC: WOUND 01:50 | DX: L97.412 Non-pressure chronic ulcer of right heel and midfoot with fat layer exposed (principal); L97.522 Non-pressure chronic ulcer of other part of left foot with fat layer exposed; S91.105D Unspecified open wound of left lesser toe(s) without damage to nail, subsequent encounter; I73.9 Peripheral vascular disease, unspecified; R22.32 Localized swelling, mass and lump, left upper limb; L03.116 Cellulitis of left lower limb | CPT/HCPCS: A9270; G0463 ==

== ENCOUNTER 2022-09-21 08:00 | Day surgery (SDC) | payer OTHER | END 2022-09-21 23:59 | disposition home or self-care (01) | LOC: WOUND 08:00 | DX: L97.522 Non-pressure chronic ulcer of other part of left foot with fat layer exposed (principal); L89.892 Pressure ulcer of other site, stage 2; L97.412 Non-pressure chronic ulcer of right heel and midfoot with fat layer exposed; I73.9 Peripheral vascular disease, unspecified; L03.116 Cellulitis of left lower limb | CPT/HCPCS: G0463 ==

== ENCOUNTER 2022-10-05 00:19 | Day surgery (SDC) | payer OTHER | END 2022-10-05 22:55 | disposition home or self-care (01) | LOC: WOUND 00:19 | DX: L89.892 Pressure ulcer of other site, stage 2 (principal); L97.412 Non-pressure chronic ulcer of right heel and midfoot with fat layer exposed; L97.522 Non-pressure chronic ulcer of other part of left foot with fat layer exposed; I73.9 Peripheral vascular disease, unspecified; L03.116 Cellulitis of left lower limb | CPT/HCPCS: A9270 ==

== ENCOUNTER 2022-10-11 10:06 | Day surgery (SDC) | payer OTHER ==
[2022-10-12] MEDS ORDERED: HYDR1TAB94 PO (12:07)
[2022-10-12] MEDS ORDERED: FENTANYL IV (12:14)
[2022-11-23] MEDS ORDERED: FLUT1DIS5 INH (09:20)
[2022-11-23] MEDS ORDERED: Aspir 8181 MG PO (09:21)
[2022-11-23] MEDS ORDERED: POTA10T PO (09:22)
[2022-11-23] MEDS ORDERED: PRAM.5 PO (09:22)
[2022-11-23] MEDS ORDERED: SENN187 PO (09:23)
== END 2022-10-11 22:43 | disposition home or self-care (01) ==
LOC: NM 10:06 → ORSCMMR 10:06 → NM 22:43 → ORSCMMR 22:43
DX: C50.011 Malignant neoplasm of nipple and areola, right female breast (principal)
CPT/HCPCS: 38792; A9520

== ENCOUNTER 2022-10-25 01:22 | Day surgery (SDC) | payer OTHER ==
[~2022-10-25 01:22] MED LIST changes: +FENTANYL IV; +HYDR1TAB94 PO
== END 2022-10-25 22:45 | disposition home or self-care (01) ==
LOC: WOUND 01:22
DX: L97.412 Non-pressure chronic ulcer of right heel and midfoot with fat layer exposed (principal); L97.522 Non-pressure chronic ulcer of other part of left foot with fat layer exposed; L89.892 Pressure ulcer of other site, stage 2; I73.9 Peripheral vascular disease, unspecified; L03.116 Cellulitis of left lower limb
CPT/HCPCS: A9270; G0463

== ENCOUNTER 2022-11-22 03:00 | Day surgery (SDC) | payer OTHER ==
[~2022-11-22 03:00] MED LIST changes: -FLUT1DIS5 INH; -SENN187 PO
[2022-11-22] MEDS ORDERED: CARV3.125 PO (14:18)
[2022-11-23] MEDS ORDERED: FLUT1DIS5 INH (09:20)
[2022-11-23] MEDS ORDERED: Aspir 8181 MG PO (09:21)
[2022-11-23] MEDS ORDERED: PRAM.5 PO (09:22)
[2022-11-23] MEDS ORDERED: POTA10T PO (09:22)
[2022-11-23] MEDS ORDERED: SENN187 PO (09:23)
== END 2022-11-22 23:05 | disposition home or self-care (01) ==
LOC: WOUND 03:00
DX: L97.412 Non-pressure chronic ulcer of right heel and midfoot with fat layer exposed (principal); L97.522 Non-pressure chronic ulcer of other part of left foot with fat layer exposed; L89.892 Pressure ulcer of other site, stage 2; L03.115 Cellulitis of right lower limb; I73.9 Peripheral vascular disease, unspecified
CPT/HCPCS: G0463

== ENCOUNTER → 2022-11-22 | Outpatient (CLI) | payer OTHER ==
[~2022-11-22] MED LIST changes: +FLUT1DIS5 INH; +SENN187 PO
[2022-11-22 17:56] LABS: Hemoglobin 13.4 g/dL (11.5-16.0); Mean Corpuscular HGB 29.5 pg (26.0-34.0); Mean Corpuscular HGB Conc 32.7 g/dL (31.5-36.5); Mean Corpuscular Volume 90 fL (80-100); Mean Platelet Volume 10.3 fL (9.1-12.4); Platelet Count 298 K/mm3 (150-400); RDW Standard Deviation 45.9 fL (35.1-46.3); Red Blood Cell Count 4.55 M/mm3 (3.80-5.20); White Blood Cell Count 7.85 K/mm3 (4.00-11.30)
[2022-11-22 20:29] LABS: Albumin, Blood 3.1 g/dL (3.4-5.0); Albumin/Globulin Ratio 0.7 (0.8-1.8); Bilirubin, Total 0.3 mg/dL (0.1-1.0); Bun/Creatinine Ratio 34.1 (12.0-20.0); Calcium, Blood 8.9 mg/dL (8.5-10.1); Creatinine, Blood 1.38 mg/dL (0.40-1.00); Globulin, Blood 4.4 g/dL (2.2-4.0); Potassium, Blood 4.3 mmol/L (3.5-5.5); Total Protein, Blood 7.5 g/dL (6.4-8.2)
== END ==
LOC: EDSTATUS 09:37 → LAB RH 16:28
PROVIDERS: Internal Medicine
DX: L03.116 Cellulitis of left lower limb (principal); I73.9 Peripheral vascular disease, unspecified; I48.0 Paroxysmal atrial fibrillation; I11.0 Hypertensive heart disease with heart failure; I50.9 Heart failure, unspecified
CPT/HCPCS: 80053; 85027

== ENCOUNTER 2022-11-29 01:10 | Day surgery (SDC) | payer OTHER ==
[~2022-11-29 01:10] MED LIST changes: +FLUT1DIS5 INH; +SENN187 PO
== END 2022-11-29 22:51 | disposition home or self-care (01) ==
LOC: WOUND 01:10
DX: I87.2 Venous insufficiency (chronic) (peripheral) (principal); L97.512 Non-pressure chronic ulcer of other part of right foot with fat layer exposed; L97.526 Non-pressure chronic ulcer of other part of left foot with bone involvement without evidence of necrosis; L89.892 Pressure ulcer of other site, stage 2; L97.516 Non-pressure chronic ulcer of other part of right foot with bone involvement without evidence of necrosis; S91.105A Unspecified open wound of left lesser toe(s) without damage to nail, initial encounter; I73.9 Peripheral vascular disease, unspecified; R22.32 Localized swelling, mass and lump, left upper limb; L03.116 Cellulitis of left lower limb; X58.XXXA Exposure to other specified factors, initial encounter
CPT/HCPCS: G0463

== ENCOUNTER 2023-01-21 01:48 | Day surgery (SDC) | payer OTHER | END 2023-01-21 23:04 | disposition home or self-care (01) | LOC: WOUND 01:48 | DX: L97.516 Non-pressure chronic ulcer of other part of right foot with bone involvement without evidence of necrosis (principal); L97.526 Non-pressure chronic ulcer of other part of left foot with bone involvement without evidence of necrosis; S91.105D Unspecified open wound of left lesser toe(s) without damage to nail, subsequent encounter; I73.9 Peripheral vascular disease, unspecified; R22.32 Localized swelling, mass and lump, left upper limb; L03.116 Cellulitis of left lower limb | CPT/HCPCS: G0463 ==

== ENCOUNTER → 2023-01-21 | Outpatient (CLI) | payer OTHER ==
[2023-01-21 10:13] LABS: Appearance, Urine Hazy (Clear); Bilirubin, Urine Neg (Neg); Blood, Urine Neg (Neg); Color, Urine Yellow (P-Yellow); Glucose Qualitative, Urine Neg (Neg); Ketones, Urine Neg (Neg); Leukocyte Esterase, Urine Neg (Neg); Nitrite, Urine Neg (Neg); Protein, Urine 1+ (Neg); Urobilinogen, Urine NORM (Normal)
[2023-01-21 10:53] LABS: Bacteria Not Seen /hpf; Mucus Light (0-Heavy); Red Blood Cells, Urine Not Seen /hpf (0-2); Squamous Epithelial Cells Rare /hpf (Few); Triple Phosphate Crystals Few /hpf; White Blood Cells, Urine Not Seen /hpf (0-5)
== END | disposition home or self-care (01) ==
LOC: LAB RH 08:30 → EDSTATUS 14:38
PROVIDERS: Internal Medicine
DX: N39.0 Urinary tract infection, site not specified (principal)
CPT/HCPCS: 81001

== ENCOUNTER 2023-05-18 01:59 | Day surgery (SDC) | payer OTHER ==
[2023-06-04] MEDS ORDERED: ATROPINE SULFATE2 M1 SL (13:49)
[2023-06-04] MEDS ORDERED: LEVE500 PO (13:50)
[2023-06-04] MEDS ORDERED: TRANSDERM-SCOP1 EA13 TD (13:50)
== END 2023-05-18 22:47 | disposition home or self-care (01) ==
LOC: WOUND 01:59
DX: L03.116 Cellulitis of left lower limb (principal); L97.526 Non-pressure chronic ulcer of other part of left foot with bone involvement without evidence of necrosis; E11.621 Type 2 diabetes mellitus with foot ulcer; E11.40 Type 2 diabetes mellitus with diabetic neuropathy, unspecified; E11.22 Type 2 diabetes mellitus with diabetic chronic kidney disease; N18.30 Chronic kidney disease, stage 3 unspecified; E11.51 Type 2 diabetes mellitus with diabetic peripheral angiopathy without gangrene; Z88.8 Allergy status to other drugs, medicaments and biological substances
CPT/HCPCS: A9270; G0463

== ENCOUNTER 2023-05-18 11:33 | Inpatient (IN) | payer OTHER ==
[~2023-05-18] VITALS: Ht 172.7 cm; Wt 66.2 kg
[2023-05-18 12:19] LABS: BASOPHILS ABSOLUTE AUTO 0.02 K/mm3 (0.00-0.23); BASOPHILS PERCENT AUTO 0 % (0-2); EOSINOPHILS ABSOLUTE AUTO 0.13 K/mm3 (0.00-0.68); EOSINOPHILS PERCENT AUTO 2 % (0-6); Hemoglobin 13.8 g/dL (11.5-16.0); IMMATURE GRAN ABSOLUTE AUTO 0.03 K/mm3 (0.00-0.10); IMMATURE GRAN PERCENT AUTO 1 % (0-1); LYMPHOCYTES ABSOLUTE AUTO 1.01 K/mm3 (0.84-5.20); LYMPHOCYTES PERCENT AUTO 15 % (21-46); MONOCYTES ABSOLUTE AUTO 0.81 K/mm3 (0.16-1.47); MONOCYTES PERCENT AUTO 12 % (4-13); Mean Corpuscular HGB 29.9 pg (26.0-34.0); Mean Corpuscular HGB Conc 32.1 g/dL (31.5-36.5); Mean Corpuscular Volume 93 fL (80-100); Mean Platelet Volume 10.2 fL (9.1-12.4); NEUTROPHILS ABSOLUTE AUTO 4.62 K/mm3 (1.96-9.15); NEUTROPHILS PERCENT AUTO 70 % (41-73); Platelet Count 260 K/mm3 (150-400); RDW Coefficient Variation 14.7 % (11.7-14.2); RDW Standard Deviation 49.8 fL (35.1-46.3); Red Blood Cell Count 4.61 M/mm3 (3.80-5.20); White Blood Cell Count 6.62 K/mm3 (4.00-11.30)
[2023-05-18 12:36] LABS: Albumin, Blood 3.5 g/dL (3.4-5.0); Albumin/Globulin Ratio 0.9 (0.8-1.8); Bilirubin, Total 0.4 mg/dL (0.1-1.0); Calcium, Blood 9.3 mg/dL (8.5-10.1); Creatinine, Blood 1.16 mg/dL (0.40-1.00); Potassium, Blood 4.4 mmol/L (3.5-5.5); Total Protein, Blood 7.5 g/dL (6.4-8.2)
[2023-05-18 13:00] LABS: Source, Urine Clean Catch
[2023-05-18 14:35] LABS: Bilirubin, Urine Neg (Neg); Blood, Urine Neg (Neg); Glucose Qualitative, Urine Neg (Neg); Ketones, Urine Neg (Neg); Leukocyte Esterase, Urine Neg (Neg); Nitrite, Urine Neg (Neg); Protein, Urine Neg (Neg); Specific Gravity, Urine 1.015 (1.003-1.022); Urobilinogen, Urine NORM (Normal)
[2023-05-18 14:36] LABS: Appearance, Urine Clear (Clear); Color, Urine Yellow (P-Yellow)
[2023-05-18 17:42] VITALS: BP 136/77
--- NOTE | 2023-05-18 18:52 | NUR ---
P ARRIVED IN PCU 6 VIA GURNEY TRANSFERRED VIA SLIDER SHEET. PT IS WHEELCHAIR BOUND AT BASELINE HAS HER OWN PERSONAL WHEECHAIR IN THE ROOM WITH THE REST OF HER BELONGINGS. PT IS ALERT AND ORIENTED X3 SOME CONFUSION AND LETHARGY, PT FALL ASLEEP QUICK AND TALKS NON RELATED TOPICS. ANSWERS QUESTIONS APPROPRIATELY. PT HAS LEFT HEEL ULCERATION WHICH PT STATES DRESSING JUST GOT CHANGED TODAY AT THE [facility] AND WAS SENT FROM THERE TO THE ER. ALSO HAS BIG BRUISE ON LEFT HIP AND SIDE OF THE BACK D/T RECENT FALL PHOTOS IN THE CHART. VITALS HRR VPACED AT 80'S, SBP 130'S, SATS ABOVE 90% ON 2L OF O2, PT WAS DESATTING TO LOW 80'S OCCASIONALLY MOSTLY WHEN FALLING ASLEEP, AFEBRILE. TROPONIN TRENDS LAST WAS AT 894 DR CUNHA MADE AWARE, PT DENIES CHEST PAIN/PRESSURE. FOR STRESS TEST IN AM, TO KEEP NPO 4 HRS BEFORE THE PROCEDURE. PT MADE AWARE. PT INCONTINENT OF BOWEL AND BLADDER PUREWICK IN PLACE. REDNESS IN THE GROIN POWDER APPLIED, COCCYX WITH MEPILEX IN PLACE FOR PROTECTION. PT NOW EATING DINNER CALL LIGHTS IN REACH WILL REPORT TO ONCOMING SHIFT
[2023-05-18 19:52] VITALS: BP 116/64
[2023-05-18 23:36] VITALS: BP 110/66
[2023-05-19 03:46] VITALS: BP 106/70
[2023-05-19 04:01] LABS: BASOPHILS ABSOLUTE AUTO 0.05 K/mm3 (0.00-0.23); BASOPHILS PERCENT AUTO 1 % (0-2); EOSINOPHILS ABSOLUTE AUTO 0.19 K/mm3 (0.00-0.68); EOSINOPHILS PERCENT AUTO 3 % (0-6); Hematocrit 39.3 % (33.0-51.0); Hemoglobin 12.6 g/dL (11.5-16.0); IMMATURE GRAN ABSOLUTE AUTO 0.02 K/mm3 (0.00-0.10); IMMATURE GRAN PERCENT AUTO 0 % (0-1); LYMPHOCYTES ABSOLUTE AUTO 0.91 K/mm3 (0.84-5.20); LYMPHOCYTES PERCENT AUTO 14 % (21-46); MONOCYTES ABSOLUTE AUTO 0.92 K/mm3 (0.16-1.47); MONOCYTES PERCENT AUTO 15 % (4-13); Mean Corpuscular HGB 29.6 pg (26.0-34.0); Mean Corpuscular HGB Conc 32.1 g/dL (31.5-36.5); Mean Corpuscular Volume 93 fL (80-100); NEUTROPHILS ABSOLUTE AUTO 4.26 K/mm3 (1.96-9.15); NEUTROPHILS PERCENT AUTO 67 % (41-73); Platelet Count 231 K/mm3 (150-400); RDW Coefficient Variation 14.4 % (11.7-14.2); RDW Standard Deviation 48.1 fL (35.1-46.3); Red Blood Cell Count 4.25 M/mm3 (3.80-5.20); White Blood Cell Count 6.35 K/mm3 (4.00-11.30)
[2023-05-19 04:21] LABS: Albumin, Blood 2.8 g/dL (3.4-5.0); Albumin/Globulin Ratio 0.8 (0.8-1.8); Bilirubin, Total 0.4 mg/dL (0.1-1.0); Calcium, Blood 8.5 mg/dL (8.5-10.1); Creatinine, Blood 1.37 mg/dL (0.40-1.00); Globulin, Blood 3.5 g/dL (2.2-4.0); Potassium, Blood 4.2 mmol/L (3.5-5.5); Total Protein, Blood 6.3 g/dL (6.4-8.2)
--- NOTE | 2023-05-19 06:11 | NUR ---
END OF SHIFT SUMMARY PT WAS ONLY ABLE TO SLEEP FOR ABOUT 2 HOURS AT A TIME AND THEN SHE WAS AWAKE. A/O X3 AT THE BEGINNING OF SHIFT BUT CONFUSION STARTED AROUND 2200 WHEN SHE WOKE UP FROM ONE OF HER NAPS; SHE CAN BE REORIENTED BUT WILL EASILY FORGET AGAIN; GIPSON. 2L NC NEEDED WHILE SLEEPING, SPO2 WILL DROP TO HIGH 70'S WITHOUT IT; WHILE AWAKE RA APPROPRIATE. SHE IS 100% PACED; BP STABLE. TROPONINS WERE CLIMBING, ADDITIONAL TROPONIN LAB ORDERS PROVIDED BY NIGHT RESIDENT; TROPONINS ARE NOW PEAKED AND COMING DOWN. NPO SINCE 0000 FOR STRESS TEST. INCONT OF URINE; PUREWICK IN PLACE. DRESSINGS TO BILATERAL HEELS IN PLACE D/T WOUNDS; PRN TYLENOL GIVEN FOR HEEL PAIN WHICH WAS HELPFUL. WILL REPORT TO AM RN WHEN AVAILABLE.
[2023-05-19 07:41] VITALS: BP 116/70
--- NOTE | 2023-05-19 07:42 | NUR ---
CARE ASSUMPTION PT WAKES TO VERBAL STIMULATION. PT REPORTING LOCATION "HOME" UPON WAKING, BUT THEN CORRECTS SELF & STATES "NO, I'M IN THE HOSPITAL." PT THEN ANSWERING FURTHER ASSESSMENT Qs APPROPRIATELY. VSS. SPO2 > 92% ON 2L NC WHICH PT REPORTS BEING HOME BASELINE USE FOR SLEEP AT HOME. NUC MED STAFF TO PT RM THIS MORNING TO BEGIN RESTING PORTION OF STRESS TEST.
[2023-05-19 13:07] VITALS: BP 113/75
[2023-05-19 13:37] LABS: Calcium, Blood 8.2 mg/dL (8.5-10.1); Creatinine, Blood 1.15 mg/dL (0.40-1.00); Potassium, Blood 4.1 mmol/L (3.5-5.5)
[2023-05-19 15:31] VITALS: BP 128/77
[2023-05-19 18:47] LABS: Anti-Xa UFH, PHA Monitoring <0.10 IU/mL; International Normalized Ratio 1.02; Prothrombin Time Results 10.7 Sec (9.7-11.5)
--- NOTE | 2023-05-19 18:48 | NUR ---
END OF SHIFT PT A&O X4 W/ EPISODES OF FORGETFULNESS. VSS. SPO2 > 92% ON 2L NC THIS AM WHILE SLEEPING, THEN RA REST OF DAY. MONITOR SHOWING PACED RHYTHM, HR 80s. PT DENYING CP. STRESS TEST COMPLETE THIS SHIFT. PT AWAITING TEST RESULTS. ORDERS FOR HEPARIN GTT TO BE INITIATED. LAB WORK/HEPARIN ORDERS PENDING PER PHARMACY. FIRE IGNITION RISK ASSESSMENT/EDUCATION COMPLETE.
[2023-05-19 19:22] VITALS: BP 129/73
[2023-05-20] VITALS (7 sets, daily range): BP systolic 97–128; BP diastolic 61–93
[2023-05-20 01:01] LABS: BASOPHILS ABSOLUTE AUTO 0.03 K/mm3 (0.00-0.23); BASOPHILS PERCENT AUTO 0 % (0-2); EOSINOPHILS ABSOLUTE AUTO 0.09 K/mm3 (0.00-0.68); EOSINOPHILS PERCENT AUTO 1 % (0-6); Hematocrit 37.4 % (33.0-51.0); Hemoglobin 12.1 g/dL (11.5-16.0); IMMATURE GRAN ABSOLUTE AUTO 0.03 K/mm3 (0.00-0.10); IMMATURE GRAN PERCENT AUTO 0 % (0-1); LYMPHOCYTES ABSOLUTE AUTO 0.98 K/mm3 (0.84-5.20); LYMPHOCYTES PERCENT AUTO 12 % (21-46); MONOCYTES ABSOLUTE AUTO 1.01 K/mm3 (0.16-1.47); MONOCYTES PERCENT AUTO 13 % (4-13); Mean Corpuscular HGB 29.8 pg (26.0-34.0); Mean Corpuscular HGB Conc 32.4 g/dL (31.5-36.5); Mean Corpuscular Volume 92 fL (80-100); Mean Platelet Volume 9.9 fL (9.1-12.4); NEUTROPHILS ABSOLUTE AUTO 5.79 K/mm3 (1.96-9.15); NEUTROPHILS PERCENT AUTO 73 % (41-73); Platelet Count 207 K/mm3 (150-400); RDW Coefficient Variation 14.4 % (11.7-14.2); RDW Standard Deviation 48.7 fL (35.1-46.3); Red Blood Cell Count 4.06 M/mm3 (3.80-5.20); White Blood Cell Count 7.93 K/mm3 (4.00-11.30)
[2023-05-20 01:15] LABS: Bun/Creatinine Ratio 26.2 (12.0-20.0); Calcium, Blood 8.5 mg/dL (8.5-10.1); Creatinine, Blood 0.99 mg/dL (0.40-1.00); Potassium, Blood 4.3 mmol/L (3.5-5.5)
--- NOTE | 2023-05-20 05:27 | NUR ---
SHIFT SUMMARY PATIENT IS ALERT AND ORIENTED X4, FORGETFUL AT TIMES. 02 SATS >93% ON RA, DENIES SOB. HR PACED AT 85, BP STABLE, DENIES CP PRESSURE. HEPARIN INF. ATTENDS IN PLACE, BED BRONSON PRN. MEDICATED FOR BILATERAL HEEL PAIN, HEELS FLOATED AND PROTECTIVE FOAM IN PLACE WHEN PATIENT ALLOWS. IGNITION RISK ASSESSED AND PATIENT STATES UNDERSTANDING, NO RISK AT THIS TIME. CALL LIGHT IN REACH
--- NOTE | 2023-05-20 18:48 | NUR ---
END OF SHIFT PT A&O X4 BUT FORGETFUL. PT IRRITABLE IN AM, THEN BECOMING LESS IRRITABLE IN AFTERNOON. PT VSS. SPO2 > 92% ON RA. MONITOR SHOWING PACED RHYTHM, HR 80s. PT MAKING MULTIPLE ATTEMPTS TO CALL S/O GAGE T/O SHIFT. PT FIXATED ON NOT HEARING FROM "MY SPECIAL MAN FRIEND." PT CALLING COMMERCIAL HELICOPTER PILOT LIGHT MULTIPLE TIMES TO VOICE CONCERN ABOUT GAGE NOT CALLING HER, STATING "HE'S SUCH A LADIES MAN. I FEAR I MAY NEVER SEE HIM AGAIN." PT L HEEL ULCER CLEANSED & REDRESSED THIS SHIFT. PT ENCOURAGED TO KEEP HEEL FLOATED. HEPARIN GTT INFUSING PER ORDERS. FIRE IGNITION RISK ASSESSMENT/EDUCATION COMPLETE.
[2023-05-21 04:41] LABS: BASOPHILS ABSOLUTE AUTO 0.05 K/mm3 (0.00-0.23); BASOPHILS PERCENT AUTO 1 % (0-2); EOSINOPHILS ABSOLUTE AUTO 0.07 K/mm3 (0.00-0.68); EOSINOPHILS PERCENT AUTO 1 % (0-6); Hematocrit 39.9 % (33.0-51.0); Hemoglobin 12.5 g/dL (11.5-16.0); IMMATURE GRAN ABSOLUTE AUTO 0.14 K/mm3 (0.00-0.10); IMMATURE GRAN PERCENT AUTO 1 % (0-1); LYMPHOCYTES ABSOLUTE AUTO 1.26 K/mm3 (0.84-5.20); LYMPHOCYTES PERCENT AUTO 12 % (21-46); MONOCYTES ABSOLUTE AUTO 1.85 K/mm3 (0.16-1.47); MONOCYTES PERCENT AUTO 17 % (4-13); Mean Corpuscular HGB Conc 31.3 g/dL (31.5-36.5); Mean Corpuscular Volume 96 fL (80-100); Mean Platelet Volume 10.7 fL (9.1-12.4); NEUTROPHILS ABSOLUTE AUTO 7.46 K/mm3 (1.96-9.15); NEUTROPHILS PERCENT AUTO 69 % (41-73); Platelet Count 208 K/mm3 (150-400); RDW Coefficient Variation 14.6 % (11.7-14.2); RDW Standard Deviation 50.4 fL (35.1-46.3); Red Blood Cell Count 4.16 M/mm3 (3.80-5.20); White Blood Cell Count 10.83 K/mm3 (4.00-11.30)
[2023-05-21 05:35] VITALS: BP 124/7
--- NOTE | 2023-05-21 05:47 | NUR ---
SHIFT SUMMARY PATIENT ALERT, ORIENTED x3 BUT VERY FORGETFUL. VITALS STABLE, PATIENT WEARING BASELINE 2L AT NIGHT WHEN PATIENT KEEPS IT ON, SPO2 >95%. PATIENT INCONTINENT WITH ATTENDS IN PLACE. ABLE TO ASSIST STAFF WITH TURNS IN BED. MEDICATED PER EMAR FOR PAIN. NO OTHER SIGNIFICANT CHANGES THIS SHIFT. WILL REPORT TO DAY SHIFT RN. OXYGEN IN USE BUT NO IGNITION RISK NOTED. PATIENT EDUCATED ON IGNITION RISK WHILE OXYGEN IN USE. PATIENT VERBALIZED UNDERSTANDING.
[2023-05-21 07:42] VITALS: BP 129/98
[2023-05-21 10:24] LABS: Bun/Creatinine Ratio 31.2 (12.0-20.0); Calcium, Blood 9.2 mg/dL (8.5-10.1); Creatinine, Blood 1.09 mg/dL (0.40-1.00); Potassium, Blood 4.6 mmol/L (3.5-5.5)
[2023-05-21 11:25] VITALS: BP 94/77
[2023-05-21 16:16] VITALS: BP 121/60
--- NOTE | 2023-05-21 18:56 | NUR ---
SHIFT SUMMARY PT IS A&OX4, BUT HAS BEEN ANXIOUS TODAY. SHE WAS HAVING A FLARE UP OF HER RLS THIS AM AND IT WAS CAUSING SEVERE PAIN TO HER LEFTHEEL WOUND. AFTER MORNING MEDICAITONS THE PAIN WAS TOLERABLE AND THE PT WAS NOT SPASTIC. A PURWICK WAS SET UP DUE OT THE PT HAVING VOIDS OVER 500CC AND SATURATING HER BRIEF. SHE WOULD CALL FOR ASSITANCE BUT SHE HAD ALREADY GONE BEFORE CALLING. PT TOLERATING PURWICK WELL. SHE HAS NOT HAD A BM TODAY. HER LEFT HEEL WAS REDRESSED AND THE DR'S SAW IT DURING THE MORNING ROUNDS. PT EDUCATED AND ASSESSED ON FIRE IGNITION RISK. NO ACUTE EVENTS.
[2023-05-21 20:14] VITALS: BP 113/47
--- NOTE | 2023-05-21 20:22 | NUR ---
HEPARIN DRIP OFF AT 2000.
[2023-05-21 23:50] VITALS: BP 122/71
[2023-05-22 03:26] VITALS: BP 133/71
--- NOTE | 2023-05-22 04:26 | NUR ---
SHIFT SUMMARY PATIENT IS ALERT AND ORIENTED X4, FORGETFUL AND AGITATED AT TIMES. 02 SATS >95% ON 2L NC WHILE SLEEPING. HR PACED 80s, BP STABLE. PUREWICK IN PLACE. PATIENT ABLE TO REPOSITION SELF IN BED. HEELS WRAPPED AND PATIENT ENCOURAGE TO FLOAT HEELS FOR COMFORT. CALL LIGHT IN REACH.
[2023-05-22 07:35] VITALS: BP 127/67
[2023-05-22 11:43] VITALS: BP 115/69
[2023-05-22 15:59] VITALS: BP 119/76
--- NOTE | 2023-05-22 17:53 | NUR ---
SHIFT SUMMARY; ASSUMED CARE AT 0700, A/A/OX4 DURING SHIFT. MOVES SELF ON GURNEY, USES BEDPAN WITH MINIMAL ASSISTANCE. C/O PAIN IN AM TO LEFT FOOT. SEE PHOTOS IN CHART OF WOUNDS. MEPILEX IN PLACE, PLAN FOR REVASC TOMORROW WITH DR. ARCHULETA. NPO AFTER MIDNIGHT. USES CALL LIGHT AND ABLE TO MAKE NEEDS KNOWN. WILL CONTINUE TO MONITOR AND TREAT UNTIL CHANGE OF SHIFT.
[2023-05-22 20:00] VITALS: BP 109/67
--- NOTE | 2023-05-22 21:16 | NUR ---
ASSUMPTION OF CARE THIS RN ASSUMED CARE OF PT AT 1915, REPORT FROM DANIELLA KHAN. PT UP IN BED, APPEARS PLEASANT AND COOPERATIVE WITH CARE. PT INTERACTING AND TALKATIVE. PT A&O X3; ASNWERS ALL ORIENTATION QUESTIONS APPROPRIATELY. VSS. PT DENIES CP OR PRESSURE AT THIS TIME. REPORTS MINIMAL SOB W/MOVEMENT, BUT STATES THIS IS NOT "NEW". PT STATES SHE DOES NOT USE OXYGEN AT HOME AND "UNSURE IF SHE REALLY NEEDS IT". PT DENIES ANY ISSUES WITH VOIDING OR PASSING BM. DOES REPORT HX OF "UTI'S AND CONSTIPATION". REPORTS HAVING BM TODAY DURING AM SHIFT. DENIES ANY CHANGES OR CONCERNS WITH STOOL. PT REPORTS PAIN IN BLE, ESPECIALLY THE "LEFT FOOT AND HEEL". MEPILEX IN PLACE ON HEEL. SMALL SCABS SCATTERED BLE AND ON L MIDDLE TOE. SMALL, SCABBED SORE NOTED ON THE BACK OF THE R HEEL. PT STATES THESE HAVE ALL BEEN PRESENT FOR "AWHILE" AND SHE SEES WOUND CARE FOR MANAGEMENT OF THESE. PT PAIN 07/17; MEDICATION ADMINISTERED PER EMAR. PT REQUESTING BED BATH, COMPLETED BY THIS RN. NO OTHER NEEDS OR CONCERNS AT THIS TIME. ANTIBIOTICS INFUSING PER EMAR. CALL LIGHT IN REACH.
[2023-05-23 00:30] VITALS: BP 110/83
[2023-05-23 04:30] VITALS: BP 121/77
--- NOTE | 2023-05-23 05:44 | NUR ---
SHIFT SUMMARY PT REMAINS A&O, ALTHOUGH DOES HAVE INTERMITTENT PERIODS OF CONFUSION ESPECIALLY THE NIGHT WENT ON. PT EASILY REDIRECTED AND REORIENTED. PT COOPERATIVE WITH CARE. VSS. PT REMAINS ON RA. COMPLETE BED BATH AND LINEN CHANGE COMPLETED THIS SHIFT. PUREWICK IN PLACE UNTIL THIS AM AROUND 0500; PW REMOVED AND ATTENDS IN PLACE. NO BM THIS SHIFT. PT COMPLAINS OF PAIN IN BLE AND L HEEL/FOOT. WOUND CLEANED AND DRESSING CHANGED THIS SHIFT, HEELS ELEVATED ON PILLOW FOR A WHILE. MEDICATION PER EMAR FOR PAIN, WITH GOOD RELIEF. PT WAS ABLE TO SLEEP WELL DURING SHIFT. PT NPO SINCE 0000 FOR SCHEDUELD PROCEDURE TODAY. PT REPOSITIONED AND ATTENDS CHANGED Q2 OR PRN. NO ACUTE CHANGES. WILL UPDATE ONCOMING RN. PT EDUCATED ON IGNITION RISKS AND RISK OF INJURY, PT DENIES TOBACCO USE. PT VERBALIZES UNDERSTANDING OF EDUCATION PROVIDED.
[2023-05-23 07:40] VITALS: BP 124/80
[2023-05-23 11:30] VITALS: BP 121/78
[2023-05-23 15:37] VITALS: BP 129/77
--- NOTE | 2023-05-23 15:59 | NUR ---
Patient is lying in bed and laert. Patient immediately tells me about the family unit complications and her great love for them all. She shares about the loss of her dtr and spouse in the same year, 17 yrs ago. She talks about her love for God, music and art. 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 She explains about her "man friend" of the last yrs and a half and his medical issues (bilateral amputee). She discusses her medical history and how the many medical problems have limited her quality of life. But she continues to focus on what she can do and what she does have. She is tearful at times and admits to being exhausted from the medical issues and the pull of family. We explore how her healing activities and her juanita can fill her spirit and soul. I provide therapeutic listening, gentle automobile travel club counselor and prayer. Patient responded well and stated that she feels like God brought me to her rm today to encourage her and it has. I will continue to remain available to patient and family.
--- NOTE | 2023-05-23 17:51 | NUR ---
SHIFT SUMMARY; ASSUMED CARE AT 0700, A/A/OX3. AT TIMES APPEARS CONFUSED AND ANGRY. ARGUES AT TIMES ABOUT FRIENDS NOT "GETTING A INVITATION". REORIENT NECESSARY. WOUND CARE CONSULT TODAY. DRESING CHANGE TOMORROW BY WHITE LEAD GRINDER. DR. ARCHULTEA OFFICE NOTIFIED THIS AM BY ACCOUNTING MACHINE SERVICER FOR CONSULT, PER NOTES PHYSICAN PREVIOUSLY SPOKE WITH DR. ARCHULETA REGARDING PT. LEFT ANKLE WOUND WITH CALCIUM ALGINATE AND MEPILEX DRY AND INTACT. 2 PERSON ASSIST TO COMMODE TODAY AND COULD NOT STAND TO GET OFF, 3 PERSON ATTEMPT WITH NO SUCCESS, DEANDRA LIFT AND SLING USED TO PUT BACK IN BED. PURWICK PLACED FOR INCONTINANCE, ATTENDS CHANGES PRN. VSS, NO ACUTE CHANGES, WILL CONTINUE TO MONITOR AND TREAT UNTIL CHANGE OF SHIFT.
[2023-05-23 19:30] LABS: Vancomycin, Trough 17.1 ug/mL (5.0-10.0)
[2023-05-23 20:00] VITALS: BP 132/79
[2023-05-24] VITALS (12 sets, daily range): BP systolic 105–148; BP diastolic 60–96
--- NOTE | 2023-05-24 06:06 | NUR ---
SHIFT SUMMARY PT REMAINS A&O, PERIODS OF CONFUSION AND FORGETFULNESS. NO ACUTE NEURO CHANGES. VSS. PT REMAINS ON RA, SPO2 >95%. PT DENIES SOB EXCEPT WITH EXERTION. PT DENIES CP OR PRESSURE. PT REPORTS PAIN 8/10 BLE AND L HEEL. MEDICATION ADMINISTERED PER EMAR, W/GOOD RELIEF. REPOSITIONING AND UNINTERRUPTED SLEEP ALSO USED FOR PAIN MANAGEMENT. PT ABLE TO REST MOST OF SHIFT. PT NPO SINCE MIDNIGHT IN PREPARATION FOR POSSIBLE PROCEDURE TODAY. PT REPOSITIONS INDEPENDENTLY, WITH OCCASSIONAL ASSISTANCE TO BE BOOSTED IN BED. PT ABLE TO MAKE NEEDS KNOWN. PUREWICK AND ATTENDS IN PLACE. PT HAD MILD LOW GRADE FEVER W/TEMP MAX OF 99.5. PT DENIES CHILLS OR FEELING FEBRILE. NO ACUTE CHANGES THIS SHIFT. ABX ADMINISTERD PER EMAR. CALL LIGHT IN REACH. WILL UPDATE ONCOMING RN
--- NOTE | 2023-05-24 18:00 | NUR ---
SHIFT SUMMARY; ASSUMED CARE AT 0700. A/A/0X2-3, FORGETFUL AND CONFUSED AT TIMES. REPOSITIONS SELF IN BED, PURWICK IN PLACE, REVASC OF LEFT LEG TODAY WITH RIGHT GROIN SITE, AQUACIL IN PLACE, RECOVERED PER ORDERS, NO HEMATOMA OR BLEEDING AT SITE. LEFT HEEL MEPILEX CHANGED. VSS, WILL CONTINUE TO MONITOR AND TREAT UNTIL CHANGE OF SHIFT.
--- NOTE | 2023-05-24 21:23 | NUR ---
ASSUMED CARE: Received bedside report at 1900. Right groin site, soft, minimal old sanguinous drainage noted on dressing, unchanged from previous per dayshift RN. Pt with HOB<30 degrees and encouraged to keep leg straight. Pt denies smoking. Educated on hospital no ingintion policy, she agrees to comply and verbalizes understanding.
[2023-05-25 04:14] VITALS: BP 115/68
--- NOTE | 2023-05-25 06:37 | NUR ---
SHIFT SUMMARY: Cath site unchanged from start of shift, small amount of old drainage on tegaderm, site is soft and intact. She slept intermittently overnight but complained of severe leg pain last night, alleviated by oxycodone x1. This morning, she states that she has a headache and sore throat. Medicated with tylenol and oxycodone. She is oriented to self and place but not time or situation. She gets confused at times and anxious. Easy to redirect and reorient.
[2023-05-25 07:54] VITALS: BP 96/57
[2023-05-25 09:08] VITALS: BP 117/74
[2023-05-25 10:20] LABS: SARS-Cov-2 (COVID-19) PCR, MMC NEGATIVE (NEGATIVE)
--- NOTE | 2023-05-25 12:01 | NUR ---
Patient is sitting on a chair and alert. She tells me danica paulino is confused about her diagnosis and that she wants to go back to the facility which she came from. She told me that she loved music and that it filled her soul. So I provided music therapy type singing and guitar playing. PAtient was moved to tears and voiced much appreciation. I played and sang well over one half an hour and then provided therapeutic listening and prayer. Patient responded well and showed signs of reduced stress and of being comforted. I will continue to remain available to patient and family.
[2023-05-25] MEDS ORDERED: OXYC5 PO (12:19)
[2023-05-25] MEDS ORDERED: ATOR80 PO (12:19)
[2023-05-25] MEDS ORDERED: VISBIOME 112.51 EACH PO (12:21)
[2023-05-25] MEDS ORDERED: Vancomycin1 GM/2501 IV (12:21)
--- NOTE | 2023-05-25 15:25 | NUR ---
PT DISCHARGED BACK TO [facility] WITH DISCHARGE ORDERS. REPORT GIVEN TO DOMINIC BREWER. ALL BELONGINGS SENT WITH THE PT, PT TRANSPORTED IN HER OWN PERSONAL WHEELCHAIR. NO ACUTE HCANGE THIS MORNING PT HAS BEEN COOPERATIVE AND PLEASANT, VITALS HAS BEEN STABLE. PT WORKED WITH OCCUPATIONAL THERAPY THIS MORNING WAS ABLE TO STAND AND TRANSFER TO T [facility]IA [facility]. ATE MEALS WITH NO ISSUES. WOUND CARE NURSE CAME IN TO SEE PT TODAY, PT TO FOLLOW UP OUTPT. NO OTHER ISSUES ENCOUNTERED FOR THE SHIFT
== END 2023-05-25 13:40 | DRG 253 ==
LOC: ER 11:33 → PCU 11:34
PROVIDERS: Family Medicine; Internal Medicine; Physician Assistant; Student in an Organized Health Care Education/Training Program; ADMIT Hospitalist
PROC: 047Q3ZZ Dilation of Left Anterior Tibial Artery, Percutaneous Approach (ICD-10-PCS; principal; 2023-05-24)
DX: I21.4 Non-ST elevation (NSTEMI) myocardial infarction (principal); I13.0 Hypertensive heart and chronic kidney disease with heart failure and stage 1 through stage 4 chronic kidney disease, or unspecified chronic kidney disease; I47.20 Ventricular tachycardia, unspecified; I50.42 Chronic combined systolic (congestive) and diastolic (congestive) heart failure; G25.81 Restless legs syndrome; I48.0 Paroxysmal atrial fibrillation; Z20.822 Contact with and (suspected) exposure to COVID-19; J44.9 Chronic obstructive pulmonary disease, unspecified; G47.30 Sleep apnea, unspecified; G89.4 Chronic pain syndrome; I25.5 Ischemic cardiomyopathy; N18.30 Chronic kidney disease, stage 3 unspecified; F32.A Depression, unspecified; I34.0 Nonrheumatic mitral (valve) insufficiency; L89.629 Pressure ulcer of left heel, unspecified stage; K59.09 Other constipation; I25.10 Atherosclerotic heart disease of native coronary artery without angina pectoris; I73.9 Peripheral vascular disease, unspecified; R51.9 Headache, unspecified; E86.0 Dehydration; D63.1 Anemia in chronic kidney disease; M79.605 Pain in left leg; I07.1 Rheumatic tricuspid insufficiency; R29.6 Repeated falls; R94.31 Abnormal electrocardiogram [ECG] [EKG]; M19.90 Unspecified osteoarthritis, unspecified site; M10.9 Gout, unspecified; I71.9 Aortic aneurysm of unspecified site, without rupture; Z96.643 Presence of artificial hip joint, bilateral; Z95.0 Presence of cardiac pacemaker; Z91.040 Latex allergy status; Z88.8 Allergy status to other drugs, medicaments and biological substances; Z91.048 Other nonmedicinal substance allergy status; Z79.02 Long term (current) use of antithrombotics/antiplatelets; Z79.899 Other long term (current) drug therapy; Z79.82 Long term (current) use of aspirin; Z99.81 Dependence on supplemental oxygen
CPT/HCPCS: 36415; 37228; 51701; 70450; 71046; 72125; 75625; 75716; 75774; 76937; 78452; 80048; 80053; 80202; 81003; 82550; 82565; 83735; 83880; 84484; 85025; 85520; 85610; 85730; 87070; 87075; 87077; 87147; 87186; 87205; 93005; 93010; 93017; 93306; 93925; 93970; 94640; 94664; 94760; 94762; 97110; 97163; 97166; 97530; 99152; 99153; 99284-25; A9270; A9500; C1725; C1760; C1769; C1887; C1894; G0378; J0690; J0706; J1644; J1650; J2250; J2270; J2785; J3010; J3370; J7030; J7050; J7120; Q9967; U0002